=== PATIENT | female | born 1990 | race Caucasian/White ===

== ENCOUNTER 2019-07-04 17:54 | Emergency (ER) | payer SELFPAY ==
[2019-07-04 18:49] LABS: Urine Blood 2+ (NEG); Urine Glucose NEGATIVE (NEG); Urine Protein NEGATIVE (NEG); Urine Specific Gravity 1.015 (1.005-1.030)
[2019-07-04] MEDS ORDERED: NA CHLORIDE 0.9% 1,000 ML ONE (19:20)
[2019-07-04 19:26] LABS: Absolute Lymphocytes (CBC) 2.8 K/uL (0.7-4.9); Basophils % 0.9 % (0-1.3); Hematocrit 36.2 % (36.0-45.0); Lymphocytes % 29.5 % (15.3-44.8); MPV 8.8 fL (7.6-11.3); RBC Red Blood Cell Count 3.94 M/uL (3.86-4.86)
[2019-07-04 19:44] LABS: BUN Blood Urea Nitrogen 10 mg/dL (7-18); Bicarbonate 27 mmol/L (21-32); Glucose Level 103 mg/dL (74-106); Potassium 3.8 mmol/L (3.5-5.1); Sodium Level 140 mmol/L (136-145)
[2019-07-04 19:49] LABS: HCG, Quantitative < 1 mIU/mL (1-3)
--- NOTE | 2019-07-04 20:06 | RAD REPORT ---
EXAM DESCRIPTION: US - Pelvis Complete - 07/04/2019 7:47 pm CLINICAL HISTORY: Pelvic pain, vaginal bleeding COMPARISON: None. TECHNIQUE: Transabdominal pelvic sonography was performed. FINDINGS: IUD is in place in the fundal portion of the endometrial cavity. No focal endometrial or m yometrial finding. No blood or fluid in the cul de sac. Both ovaries are identified and show normal b lood flow. Small follicles or cysts present. No suspicious ovarian or adnexal finding. IMPRESSION: No significant or suspicious uterine, ovarian for adnexal finding. IUD is in place in the fundal portion of the endometrial cavity.
--- NOTE | 2019-07-04 20:50 | ER ---
Nurse's Notes [facility] Name: Mary Beth Sanchez Age: 28 yrs Sex: Female : 1990 Arrival Date: 07/04/2019 Time: 18:03 Bed 26 Private MD: Diagnosis: Other abnormal uterine and vaginal bleeding;Urinary tract infection, site not specified Presentation: 07/04 18:16 Presenting complaint: Patient states: possible miscarriage, took 3 UPT 2.5 week ago, iw thought she was on her cycle 2.5 weeks ago and has been bleeding since then, also has low abd pain, was in recovery and they had to do a UPT so that's how she found out, currently has IUD in place, bleeding has clots. Transition of care: patient was not received from another setting of care. Onset of symptoms was June 20, 2019. Risk Assessment: Do you want to hurt yourself or someone else? Patient reports no desire to harm self or others. Initial Sepsis Screen: Does the patient meet any 2 criteria? No. Patient's initial sepsis screen is negative. Does the patient have a suspected source of infection? No. Patient's initial sepsis screen is negative. Care prior to arrival: None. 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 - Social history:: Smoking status: Patient denies any tobacco usage or history of. - Ebola Screening: : Patient negative for fever greater than or equal to 101.5 degrees Fahrenheit, and additional compatible Ebola Virus Disease symptoms Patient denies exposure to infectious person Patient denies travel to an Ebola-affected area in the 21 days before illness onset No symptoms or risks identified at this time. Screenin:26 Abuse screen: Denies threats or abuse. Denies injuries from another. Nutritional aj1 screening: No deficits noted. Tuberculosis screening: No symptoms or risk factors identified. 21:57 Fall Risk None identified. aj1 Assessment: 19:26 General: Appears in no apparent distress. comfortable, Behavior is calm, cooperative, aj1 appropriate for age. Pain: Pain currently is 6 out of 10 on a pain scale. Neuro: Level of Consciousness is awake, alert, obeys commands, Oriented to person, place, time, situation. Cardiovascular: Patient's skin is warm and dry. Respiratory: Airway is patent Respiratory effort is even, unlabored, Respiratory pattern is regular, symmetrical. GI: No signs and/or symptoms were reported involving the gastrointestinal system. : Reports vaginal bleeding that is bright red. EENT: No signs and/or symptoms were reported regarding the EENT system. Derm: No signs and/or symptoms reported regarding the dermatologic system. Skin is pink, warm \T\ dry. normal. Musculoskeletal: No signs and/or symptoms reported regarding the musculoskeletal system. Circulation, motion, and sensation intact. 20:30 Reassessment: Patient appears in no apparent distress at this time. No changes from aj1 previously documented assessment. Patient and/or family updated on plan of care and expected duration. Pain level reassessed. Patient is alert, oriented x 3, equal unlabored respirations, skin warm/dry/pink. 21:44 Reassessment: Patient appears in no apparent distress at this time. No changes from aj1 previously documented assessment. Patient and/or family updated on plan of care and expected duration. Pain level reassessed. Patient is alert, oriented x 3, equal unlabored respirations, skin warm/dry/pink. Vital Signs: 18:19 BP 140 / 102; Pulse 74; Resp 16; Temp 99.3; Pulse Ox 97% on R/A; Weight 70.31 kg; iw Height 5 ft. 9 in. (175.26 cm); Pain 8/10; 20:52 BP 125 / 90; Pulse 87; Resp 16; Temp 98.1(O); Pulse Ox 100% ; lt1 18:19 Body Mass Index 22.89 (70.31 kg, 175.26 cm) ED Course: 18:03 Patient arrived in ED. mr 18:18 Triage completed. iw 18:20 Arm band placed on. iw 18:24 Patel Martins PA is PHCP. [facility] 18:24 Symone Ng MD is Attending Physician. [facility] 18:28 María Carvalho, RN is Primary Nurse. aj1 19:26 Patient has correct armband on for positive identification. aj1 19:26 No provider procedures requiring assistance completed. aj1 19:26 Inserted saline lock: 20 gauge in right antecubital area, using aseptic technique. aj1 Blood collected. 19:48 US Pelvis Complete In Process Unspecified. EDMS 19:49 Ultrasound completed. Patient tolerated well. sg3 20:40 EKG done, by ED staff, reviewed by Patel PANCHAL. lt1 21:57 IV discontinued, intact, bleeding controlled, No redness/swelling at site. Pressure aj1 dressing applied. Administered Medications: 19:25 Drug: NS 0.9% (20 ml/kg) 20 ml/kg Route: IV; Rate: 1 bolus; Site: right antecubital; aj1 21:45 Follow up: IV Status: Completed infusion; IV Intake: 1400ml aj1 Intake: 21:45 IV: 1400ml; Total: 1400ml. aj1 Outcome: 20:49 Discharge ordered by . [facility] 21:58 Discharged to Rehab Facility aj1 21:58 Condition: good 21:58 Discharge instructions given to patient, Instructed on discharge instructions, follow up and referral plans. medication usage, Demonstrated understanding of instructions, follow-up care, medications, Prescriptions given X 1. 21:58 Patient left the ED. aj1 Signatures: Dispatcher [employer] EDMS María Carvalho, Patel Kraft RN, PA PA Radha Lamas Irene, RN RN iw Godinez, Sarah sg3 Savannah Ibarra lt1
--- NOTE | 2019-07-04 20:51 | EDPHYS ---
Physician Documentation [facility] Name: Mary Beth Sanchez Age: 28 yrs Sex: Female : 1990 Arrival Date: 07/04/2019 Time: 18:03 Bed 26 Private MD: ED Physician Symone Ng HPI: 07/04 18:51 This 28 yrs old Female presents to ER via Ambulatory with complaints of jmm Vaginal Bleeding. 18:51 The patient presents with vaginal bleeding that is. Onset: The symptoms/episode jmm began/occurred gradually. Modifying factors: The symptoms are alleviated by nothing, the symptoms are aggravated by nothing. Associated signs and symptoms: Pertinent negatives: fever. This is a 28 year old female with no chronic medical conditions that presents to the ED with complaints of vaginal bleeding, weakness. Bleeding began approx 2.5 weeks ago. Patient has had positive UPT at home. States having a syncopal episode 2 days ago. . 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 - Social history:: Smoking status: Patient denies any tobacco usage or history of. - Ebola Screening: : Patient negative for fever greater than or equal to 101.5 degrees Fahrenheit, and additional compatible Ebola Virus Disease symptoms Patient denies exposure to infectious person Patient denies travel to an Ebola-affected area in the 21 days before illness onset No symptoms or risks identified at this time. ROS: 18:51 Constitutional: Negative for fever, chills, and weight loss, Cardiovascular: Negative jmm for chest pain, palpitations, and edema, Respiratory: Negative for shortness of breath, cough, wheezing, and pleuritic chest pain. 18:51 : Positive for vaginal bleeding. 18:51 Neuro: Positive for syncope. 18:51 All other systems are negative. Exam: 18:51 Constitutional: This is a well developed, well nourished patient who is awake, alert, jmm and in no acute distress. Head/Face: atraumatic. Eyes: EOMI, no conjunctival erythema appreciated ENT: Moist Mucus Membranes Neck: Trachea midline, Supple Chest/axilla: Normal chest wall appearance and motion. Cardiovascular: Regular rate and rhythm. No edema appreciated Respiratory: Normal respirations, no respiratory distress appreciated 18:51 Skin: General appearance color normal MS/ Extremity: Moves all extremities, no obvious deformities appreciated, no edema noted to the lower extremities Neuro: Awake and alert, normal gait Psych: Behavior is normal, Mood is normal, Patient is cooperative and pleasant 18:51 Abdomen/GI: Inspection: abdomen appears normal, Bowel sounds: normal, Palpation: abdomen is soft and non-tender, in all quadrants. 18:51 Back: CVA tenderness, is absent. Vital Signs: 18:19 BP 140 / 102; Pulse 74; Resp 16; Temp 99.3; Pulse Ox 97% on R/A; Weight 70.31 kg; iw Height 5 ft. 9 in. (175.26 cm); Pain 8/10; 20:52 BP 125 / 90; Pulse 87; Resp 16; Temp 98.1(O); Pulse Ox 100% ; lt1 18:19 Body Mass Index 22.89 (70.31 kg, 175.26 cm) iw MDM: 18:50 Patient medically screened. jmm 20:48 Data reviewed: vital signs, nurses notes. Counseling: I had a detailed discussion with hanna the patient and/or guardian regarding: the historical points, exam findings, and any diagnostic results supporting the discharge/admit diagnosis, lab results, radiology results, the need for outpatient follow up, to return to the emergency department if symptoms worsen or persist or if there are any questions or concerns that arise at home. ED course: Patient is alert and non toxic in appearance in the ED. Advised to follow up with obgyn for reevaluation. Patient otherwise given strict return precautions. Patient understood and agrees with the plan of care. . 07/04 18:40 Order name: Urine Dipstick--Ancillary (enter results); Complete Time: 18:50 eb 07/04 18:40 Order name: Urine --Ancillary (enter results); Complete Time: 18:50 eb 07/04 18:51 Order name: Quantitative Hcg; Complete Time: 19:53 [facility] 07/04 18:51 Order name: Abo/rh Typing; Complete Time: 19:53 [facility] 07/04 18:51 Order name: Basic Metabolic Panel; Complete Time: 19:53 [facility] 07/04 18:51 Order name: CBC with Diff; Complete Time: 19:37 [facility] 07/04 18:25 Order name: Urine Dipstick-Ancillary (obtain specimen); Complete Time: 19:13 [facility] 07/04 18:25 Order name: Urine Test (obtain specimen); Complete Time: 19:13 [facility] 07/04 18:51 Order name: IV Saline Lock; Complete Time: 19:14 [facility] 07/04 18:51 Order name: Labs collected and sent; Complete Time: 19:14 [facility] 07/04 18:51 Order name: NPO; Complete Time: 19:14 [facility] 07/04 18:51 Order name: US Pelvis Complete; Complete Time: 20:13 [facility] 07/04 20:23 Order name: EKG - Nurse/Tech; Complete Time: 20:40 [facility] Administered Medications: 19:25 Drug: NS 0.9% (20 ml/kg) 20 ml/kg Route: IV; Rate: 1 bolus; Site: right antecubital; aj1 21:45 Follow up: IV Status: Completed infusion; IV Intake: 1400ml aj1 Disposition: 07/05 15:53 Co-signature as Attending Physician, Symone Ng MD. ma2 Disposition: 07/04/19 20:49 Discharged to Home. Impression: Other abnormal uterine and vaginal bleeding, Urinary tract infection, site not specified. - Condition is Stable. - Discharge Instructions: Urinary Tract Infection, Adult, Dysfunctional Uterine Bleeding. - Prescriptions for Cephalexin 500 mg Oral Capsule - take 1 capsule by ORAL route every 12 hours for 10 days; 20 capsule. - Medication Reconciliation Form, Thank You Letter, Antibiotic Education, Prescription Opioid Use form. - Follow up: Private Physician; When: 2 - 3 days; Reason: Recheck today's complaints, Continuance of care, Re-evaluation by your physician. Signatures: Dispatcher [employer] María Leon RN RN aj1 Patel Martins PA PA jmm Williams, Irene, RN RN iw Alzahri, Mohammad, MD MD ma2 Corrections: (The following items were deleted from the chart) 07/04 21:58 20:49 07/04/2019 20:49 Discharged to Home. Impression: Other abnormal uterine and aj1 vaginal bleeding; Urinary tract infection, site not specified. Condition is Stable. Forms are Medication Reconciliation Form, Thank You Letter, Antibiotic Education, Prescription Opioid Use. Follow up: Private Physician; When: 2 - 3 days; Reason: Recheck today's complaints, Continuance of care, Re-evaluation by your physician. hanna
[2019-07-04 23:18] VITALS: BP 125/90; TEMP 98.1; O2SAT 100
== END 2019-07-04 21:58 | disposition home or self-care (01) ==
LOC: ER 17:54
DX: N93.9 Abnormal uterine and vaginal bleeding, unspecified (principal); N39.0 Urinary tract infection, site not specified; Z91.040 Latex allergy status
CPT/HCPCS: 36415; 76856; 80048; 81003; 81025; 84702; 85025; 86900; 86901; 96360; 96361; 99284; J7030

== ENCOUNTER 2019-10-25 18:35 | Emergency (ER) | payer SELFPAY ==
[2019-10-25] MEDS ORDERED: NA CHLORIDE 0.9% 1,000 ML ONE (20:54)
[2019-10-25 20:59] LABS: Absolute Lymphocytes (CBC) 2.7 K/uL (0.7-4.9); Basophils % 1.1 % (0-1.3); Hematocrit 44.1 % (36.0-45.0); Lymphocytes % 27.1 % (15.3-44.8); MPV 8.7 fL (7.6-11.3); RBC Red Blood Cell Count 4.83 M/uL (3.86-4.86)
--- NOTE | 2019-10-25 20:59 | RAD REPORT ---
EXAM DESCRIPTION: Javi Single View10/25/2019 8:52 pm CLINICAL HISTORY: Shortness of breath COMPARISON: 2018 FINDINGS: The mid and lower lungs are mildly hazy. The heart is normal size IMPRESSION: The mid and lower lungs are mildly hazy probably secondary to overlying soft tissue. As infiltrates can have this appearance it is recommended that the patient have PA and lateral chest ser ies for further evaluation
[2019-10-25 21:11] LABS: Urine Blood 1+ (NEG); Urine Glucose NEGATIVE (NEG); Urine Protein NEGATIVE (NEG); Urine Specific Gravity >1.030 (1.005-1.030)
[2019-10-25 21:13] LABS: Urine Bacteria 20-50 /HPF (<20); Urine Culture Reflex Order REFLEXED; Urine RBC NONE SEEN /HPF (NONE SEEN)
[2019-10-25 21:15] LABS: ALT/SGPT 20 U/L (12-78); AST/SGOT 9 U/L (15-37); Albumin 3.8 g/dL (3.4-5.0); Alkaline Phosphatase 41 U/L (45-117); BUN Blood Urea Nitrogen 12 mg/dL (7-18); Bicarbonate 27 mmol/L (21-32); Bilirubin Direct < 0.1 mg/dL (0-0.2); Bilirubin Total 0.2 mg/dL (0.2-1.0); Glucose Level 93 mg/dL (74-106); Potassium 3.7 mmol/L (3.5-5.1); Protein, Total 8.4 g/dL (6.4-8.2); Sodium Level 139 mmol/L (136-145)
[2019-10-25 21:19] LABS: Protime INR 0.96
--- NOTE | 2019-10-25 21:35 | RAD REPORT ---
EXAM DESCRIPTION: CT - Head Brain Wo Cont - 10/25/2019 9:09 pm CLINICAL HISTORY: Numbness e COMPARISON: 2007 TECHNIQUE: Computed axial tomography of the head was obtained. IV contrast was not requested. All CT scans are performed using dose optimization technique as appropriate and may include automated exposure control or mA/KV adjustment according to patient size. FINDINGS: An intracranial bleed is not seen . The ventricles are normal in caliber. No extra-axial fluid collection is noted. Fluid within the sinuses/ mastoids is not seen. IMPRESSION: No acute intracranial abnormality is seen. If patient's symptoms persist MRI of the bra in would be recommended.
--- NOTE | 2019-10-25 23:04 | EDPHYS ---
Physician Documentation [facility] Name: Mary Beth Sanchez Age: 29 yrs Sex: Female : 1990 Arrival Date: 10/25/2019 Time: 18:37 Bed 20 Private MD: ED Physician Robin Nguyen HPI: 10/24 20:28 This 29 yrs old Female presents to ER via Ambulatory with complaints of rn Dizziness, Numbness, Shortness Of Breath, Confused. 20:28 The patient presents with generalized weakness. Onset: The symptoms/episode rn began/occurred 4 day(s) ago. Modifying factors: The symptoms are alleviated by nothing, the symptoms are aggravated by nothing. Severity of symptoms: At their worst the symptoms were moderate in the emergency department the symptoms are unchanged. The patient has not experienced similar symptoms in the past. Reports "not feeling right" for 4 days, no head injury. Feels mild headache that has now resolved, assoc with fatigue, malaise, rash on bilateral lower ext that does not itch or hurt. NO known autoimmune problems or blood problems in her or family. No new meds. Went fishing recently. NO neck pain or stiffness. No fever. NO sick contacts. . 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 - Social history:: Smoking status: Patient reports the use of cigarette tobacco products, smokes one-half pack cigarettes per day. - Family history:: not pertinent. - Hospitalizations: : No recent hospitalization is reported. ROS: 20:30 Constitutional: Negative for fever, chills, and weight loss, Eyes: Negative for injury, rn pain, redness, and discharge, Neck: Negative for injury, pain, and swelling, Cardiovascular: Negative for chest pain, palpitations, and edema, Respiratory: Negative for cough, wheezing, and pleuritic chest pain, Abdomen/GI: Negative for abdominal pain, nausea, vomiting, diarrhea, and constipation, Back: Negative for injury and pain, : Negative for injury, bleeding, discharge, and swelling, MS/Extremity: Negative for injury and deformity, Skin: + rash to legs Neuro: Negative for headache, and seizure. Exam: 20:30 Constitutional: This is a well developed, well nourished patient who is awake, alert, rn and in no acute distress. Ambulatory to room without assistance or distress Head/Face: Normocephalic, atraumatic. Eyes: Pupils equal round and reactive to light, extra-ocular motions intact. Lids and lashes normal. Conjunctiva and sclera are non-icteric and not injected. Cornea within normal limits. Periorbital areas with no swelling, redness, or edema. Neck: Trachea midline, no thyromegaly or masses palpated, and no cervical lymphadenopathy. Supple, full range of motion without nuchal rigidity, or vertebral point tenderness. No Meningismus. Cardiovascular: Regular rate and rhythm. No pulse deficits. Respiratory: Lungs have equal breath sounds bilaterally, clear to auscultation. No increased work of breathing, no retractions or nasal flaring. Skin: Warm, dry, + blanching non-palpable erythematous lesions scattered bilateral lower ext, below knees. No fluctuance or warmth. Non-tender. No streaking. MS/ Extremity: Pulses equal, no cyanosis. Neuro: Awake and alert, GCS 15, oriented to person, place, time, and situation. Cranial nerves II-XII grossly intact. Motor strength 5/5 in all extremities. Sensory grossly intact. Cerebellar exam normal. Normal gait. 22:25 ECG was reviewed by the Attending Physician. rn Vital Signs: 19:00 BP 116 / 83; Pulse 98; Resp 16 S; Temp 98.4(O); Pulse Ox 99% on R/A; Weight 72.57 kg ca1 (R); Height 5 ft. 9 in. (175.26 cm) (R); 20:55 BP 109 / 79; Pulse 80; Resp 17; Pulse Ox 100% on R/A; rv 22:00 BP 109 / 78; Pulse 68; Resp 17; Pulse Ox 100% on R/A; rv 23:00 BP 108 / 72; Pulse 79; Resp 17; Pulse Ox 100% on R/A; rv 19:00 Body Mass Index 23.63 (72.57 kg, 175.26 cm) ca1 MDM: 19:53 Patient medically screened. rn 23:01 Differential diagnosis: generalized weakness, hypovolemia, idiopathic dizziness, viral rn syndrome, pneumonia, COVID-19, dehydration, vasculitis, auto-immune disorder. . Data reviewed: vital signs, nurses notes, lab test result(s), radiologic studies, CT scan, plain films, and as a result, I will discharge patient. Counseling: I had a detailed discussion with the patient and/or guardian regarding: the historical points, exam findings, and any diagnostic results supporting the discharge/admit diagnosis, lab results, radiology results, the need for outpatient follow up, to return to the emergency department if symptoms worsen or persist or if there are any questions or concerns that arise at home. Response to treatment: the patient's symptoms have mildly improved after treatment, and as a result, I will discharge patient. Special discussion: I discussed with the patient/guardian in detail that at this point there is no indication for admission to the hospital. It is understood, however, that if the symptoms persist or worsen the patient needs to return immediately for re-evaluation. Based on the history and exam findings, there is no indication for further emergent testing or inpatient evaluation. I discussed with the patient/guardian the need to see the primary care provider for further evaluation of the symptoms. ED course: NO acute findings in w/u, neg 2 view chest, swabbed for COVID-19, will dc home with quarantine and return precautions. . 10/24 20:26 Order name: CBC with Diff; Complete Time: 21:00 rn 10/24 20:26 Order name: Basic Metabolic Panel; Complete Time: : rn 10/24 20:26 Order name: Protime (+inr); Complete Time: : rn 10/24 20:26 Order name: Ptt, Activated; Complete Time: : rn 10/24 20:26 Order name: [place]atte Screen Profile; Complete Time: : rn 10/24 20:26 Order name: Strep; Complete Time: : rn 10/24 20:26 Order name: Flu; Complete Time: : rn 10/24 20:26 Order name: Urine Microscopic Only; Complete Time: :38 rn 10/24 20:26 Order name: LFT's; Complete Time: : rn 10/24 21:05 Order name: Urine Dipstick--Ancillary (enter results); Complete Time: :38 ar5 10/24 21:05 Order name: Urine --Ancillary (enter results); Complete Time: 21:38 [facility] 10/24 21:17 Order name: Urine Culture [facility] 10/24 21:52 Order name: Throat Culture [facility] 10/24 22:50 Order name: COVID-19 10/24 20:26 Order name: IV Start; Complete Time: 20:45 10/24 20:26 Order name: XRAY Chest (1 view); Complete Time: 21:38 10/24 20:26 Order name: CT Head Brain wo Cont; Complete Time: 21:38 10/24 20:26 Order name: Urine Test (obtain specimen); Complete Time: 20:45 10/24 20:26 Order name: Urine Dipstick-Ancillary (obtain specimen); Complete Time: 20:45 10/24 21:39 Order name: XRAY Chest Pa And Lat (2 Views) 10/24 22:50 Order name: Document PUI#; Complete Time: 23:30 10/24 22:50 Order name: Droplet/Contact Precautions; Complete Time: 23:31 10/24 22:50 Order name: Labs collected and sent; Complete Time: 23:31 10/24 22:50 Order name: Notify Health Dept [phone]/ ; Complete Time: 23:31 10/24 22:50 Order name: O2 Per Protocol; Complete Time: 23:31 rn EC:25 Rate is 74 beats/min. Rhythm is regular. QRS [place] is Normal. TN interval is normal. QRS rn interval is normal. QT interval is normal. No Q waves. T waves are Normal. No ST changes noted. Clinical impression: Normal ECG. Interpreted by me. Reviewed by me. Administered Medications: 20:55 Drug: NS 0.9% 1000 ml Route: IV; Rate: 1000 ml; Site: right antecubital; rv 23:31 Follow up: IV Status: Completed infusion; IV Intake: 1000ml rv Disposition: 10/25/19 23:03 Discharged to Home. Impression: Weakness, Dyspnea, unspecified, Rash and other nonspecific skin eruption. - Condition is Stable. - Discharge Instructions: Rash, Shortness of Breath, Weakness. - Work release form, Medication Reconciliation Form, Thank You Letter, Antibiotic Education, Prescription Opioid Use form. - Follow up: Private Physician; When: As needed; Reason: Recheck today's complaints, Re-evaluation by your physician. - Problem is new. - Symptoms have improved. Signatures: Dispatcher [employer] EDMS Robin Nguyen MD MD rn Vicente, Ronaldo, RN RN rv Acob, ACE Lemos RN ca1 Corrections: (The following items were deleted from the chart) 23:30 23:03 10/25/2019 23:03 Discharged to Home. Impression: Weakness; Dyspnea, unspecified; rv Rash and other nonspecific skin eruption. Condition is Stable. Forms are Medication Reconciliation Form, Thank You Letter, Antibiotic Education, Prescription Opioid Use. Follow up: Private Physician; When: As needed; Reason: Recheck today's complaints, Re-evaluation by your physician. Problem is new. Symptoms have improved. rn
--- NOTE | 2019-10-25 23:04 | ER ---
Nurse's Notes [facility] Name: Mary Beth Sanchez Age: 29 yrs Sex: Female : 1990 Arrival Date: 10/25/2019 Time: 18:37 Bed 20 Private MD: Diagnosis: Weakness;Dyspnea, unspecified;Rash and other nonspecific skin eruption Presentation: 10/24 19:00 Chief complaint: Patient states: Rash on both legs started last , had steroid ca1 shot at the ER. Then 4 days ago, numbness on R side of the face. States, "I feel confused like something is not right. Also have SOB since 4 days ago". Denies cough and fever. Coronavirus screen: Proceed with normal triage. Patient denies a cough. Patient reports shortness of breath or difficulty breathing. Patient denies measured and/or subjective temperature greater than 100.4F prior to today's visit. Patient denies travel on a cruise ship or to a country the [facility] currently lists as an affected area. Patient denies contact with known and/or suspected case of COVID-19. Ebola Screen: Patient negative for fever greater than or equal to 101.5 degrees Fahrenheit, and additional compatible Ebola Virus Disease symptoms Patient denies exposure to infectious person. Patient denies travel to an Ebola-affected area in the 21 days before illness onset. No symptoms or risks identified at this time. Initial Sepsis Screen: Does the patient meet any 2 criteria? No. Patient's initial sepsis screen is negative. Does the patient have a suspected source of infection? No. Patient's initial sepsis screen is negative. Risk Assessment: Do you want to hurt yourself or someone else? Patient reports no desire to harm self or others. Onset of symptoms was October 25, 2019. 19:00 Method Of Arrival: Ambulatory ca1 19:00 Acuity: AMOS 3 ca1 Triage Assessment: 20:26 Respiratory: Onset: The symptoms/episode began/occurred at an unknown time. rv RN REVIEW: 19:00 LMP 10/20/2019 ca1 Historical: - Allergies: 19:05 Latex, Natural Rubber; ca1 - Home Meds: 19:05 None [Active]; ca1 - PMHx: 19:05 back problems; Seizures; ca1 - PSHx: 19:05 Appendectomy; Tonsillectomy; Hernia repair; ca1 - Immunization history:: Adult Immunizations up to date. - Social history:: Smoking status: Patient reports the use of cigarette tobacco products, smokes one-half pack cigarettes per day. - Family history:: not pertinent. - Hospitalizations: : No recent hospitalization is reported. Screenin:25 Abuse screen: Denies threats or abuse. Denies injuries from another. Nutritional rv screening: No deficits noted. Tuberculosis screening: No symptoms or risk factors identified. Fall Risk None identified. Assessment: 20:23 General: Appears comfortable, Behavior is calm, cooperative. Pain: Denies pain. Neuro: rv Level of Consciousness is awake, alert, obeys commands, Oriented to person, place, time, situation, Credit Verifier are equal bilaterally Moves all extremities. Full function Gait is steady, Speech is normal, Facial symmetry appears normal, Pupils are PERRLA, Intact Reports numbness in face, right side. Cardiovascular: Patient's skin is warm and dry. Rhythm is sinus rhythm. Respiratory: Airway is patent Respiratory effort is even, unlabored, Breath sounds are clear bilaterally. Derm: Rash noted that is red, on right arrieta, anterior aspect of right ankle, dorsum of right foot, left arrieta, anterior aspect of left ankle and dorsum of left foot. Vital Signs: 19:00 BP 116 / 83; Pulse 98; Resp 16 S; Temp 98.4(O); Pulse Ox 99% on R/A; Weight 72.57 kg ca1 (R); Height 5 ft. 9 in. (175.26 cm) (R); 20:55 BP 109 / 79; Pulse 80; Resp 17; Pulse Ox 100% on R/A; rv 22:00 BP 109 / 78; Pulse 68; Resp 17; Pulse Ox 100% on R/A; rv 23:00 BP 108 / 72; Pulse 79; Resp 17; Pulse Ox 100% on R/A; rv 19:00 Body Mass Index 23.63 (72.57 kg, 175.26 cm) ca1 ED Course: 18:37 Patient arrived in ED. ag5 19:04 Triage completed. ca1 19:48 David Cifuentes, ACE is Primary Nurse. rv 19:53 Robin Nguyen MD is Attending Physician. rn 20:25 Patient has correct armband on for positive identification. Bed in low position. Call rv light in reach. Side rails up X 1. Pulse ox on. NIBP on. 20:26 Arm band placed on Patient placed in the treatment room, on a stretcher, Patient rv notified of wait time. EKG completed in triage. Results shown to MD. 20:53 XRAY Chest (1 view) In Process Unspecified. EDMS 21:10 CT Head Brain wo Cont In Process Unspecified. EDMS 21:35 Inserted saline lock: 18 gauge in right antecubital area, using aseptic technique. rv Blood collected. 21:50 XRAY Chest Pa And Lat (2 Views) In Process Unspecified. EDMS 23:24 No provider procedures requiring assistance completed. IV discontinued, intact, rv bleeding controlled, No redness/swelling at site. Pressure dressing applied. Administered Medications: 20:55 Drug: NS 0.9% 1000 ml Route: IV; Rate: 1000 ml; Site: right antecubital; rv 23:31 Follow up: IV Status: Completed infusion; IV Intake: 1000ml rv Intake: 23:31 IV: 1000ml; Total: 1000ml. rv Outcome: 23:03 Discharge ordered by MD. rn 23:28 Discharged to home ambulatory. rv 23:28 Condition: good 23:28 Discharge instructions given to patient, Instructed on discharge instructions, follow up and referral plans. Demonstrated understanding of instructions, follow-up care. 23:30 Patient left the ED. rv Addendum: 10/28/2019 11:50 Addendum: Other pt notified of negative COVID-19 swab results. Pt advised to remain in d m5 isolation until fever free for 72 hours without medication, to continue to monitor symptoms and to return to the ED if symptoms worsen. Signatures: Dispatcher [employer] EDOH Marleni Leung, ACE RN [email or web address] Robin Nguyen MD MD rn Vicente, Ronaldo, RN RN rv Acob, Cheryl, RN RN ca1 Rebeca Barahona 5
[2019-10-25 23:44] VITALS: TEMP 98.4
[2019-10-25 23:45] VITALS: O2SAT 100
[2019-10-25 23:48] VITALS: BP 108/72
--- NOTE | 2019-10-26 11:32 | RAD REPORT ---
EXAM DESCRIPTION: Chest Pa And Lat x-ray (2 Views) CLINICAL HISTORY: DYSPNEA COMPARISON: None FINDINGS: Cardiac silhouette is within normal limits. EKG leads project over the chest. There is no focal parenchymal or pleural disease. There is no acute osseous process visualized. Costophrenic angl es were not included in the frontal view. IMPRESSION: No evidence of acute cardiopulmonary disease. Electronically signed by: Tai Peters MD 10/25/2019 10:48 PM CDT Due to temporary technical issues with the PACS/Fluency reporting system, reports are being signed by the in house radiologist as a courtesy to ensure prompt reporting. The interpreting radiologist is f ully responsible for the content of the report.
--- NOTE | 2019-10-27 07:24 | EKG ---
Test Date: 2019-10-25 Test Time: 20:04:31 Stoker Installation Mechanic: ADRIANNA MEASUREMENT RESULTS: Intervals: Rate: 74 WV: 130 QRSD: 94 QT: 386 QTc: 428 [place]: P: 41 WV: 130 QRS: 71 T: 39 INTERPRETIVE STATEMENTS: Normal sinus rhythm with sinus arrhythmia Normal ECG No previous ECG available for comparison Electronically Signed On 10-27-19 07:23:06 CDT by Agapito Ferguson
== END 2019-10-25 23:30 | disposition home or self-care (01) ==
LOC: ER 18:35
DX: R53.1 Weakness (principal); Z20.828 Contact with and (suspected) exposure to other viral communicable diseases; R21 Rash and other nonspecific skin eruption; F17.210 Nicotine dependence, cigarettes, uncomplicated; Z91.040 Latex allergy status; Z91.048 Other nonmedicinal substance allergy status
CPT/HCPCS: 36415; 70450; 71045; 71046; 80048; 80076; 81003; 81015; 81025; 85025; 85610; 85730; 86308; 87070; 87081; 87086; 87088; 87804; 93005; 96360; 96361; 99284; J7030; U0001

== ENCOUNTER 2022-02-28 11:44 | Emergency (ER) | payer OTHER ==
--- OUTSIDE RECORDS SUMMARY | 2022-02-28 11:49 | XMS REPORT | Continuity of Care Document ---
:[address] [facility] t Address [address] [place] [address] Care Team Providers Name Role Phone RUTHANN OWEN Primary Care Physician Unavailable Pepe Liu Attending Clinician Unavailable Marques Hughes Attending Clinician Unavailable SITA CHU Attending Clinician Unavailable Sita Mccurdy Attending Clinician Doctor Unassigned, Rodriguez Hevia Attending Clinician Unavailable CHASIDY_Saul_Mickie Attending Clinician Unavailable Marques Hughes Attending Clinician [phone] RUTHANN OWEN Attending Clinician Unavailable Ruthann Griggs Attending Clinician Ultrasound, Ang-Mfm Attending Clinician Unavailable Erendira Sue MD, Delaney Attending Clinician [phone] AkinsiChristina Raman Attending Clinician [phone] Marques Hughes Admitting Clinician Unavailable KNOW, DOES_NOT Admitting Clinician Unavailable MICHAEL_RON_Saul_Mickie Admitting Clinician Unavailable Payers Payer Name Policy Type Policy Number Effective Date Expiration Date Tae floyd [facility] [id number] 2020 [employer] [place] 00:00:00 (MEDICAID HMO) Problems Condition Condition Condition Status Onset Resolution Last Treating Co mments Source Name Details Category Date Date Treatment Clinician Date Subchorion Subchorion Disease Active Overview : Univers ic ic 1-21 Formattin ity of hemorrhage hemorrhage 00:00: g of this [place] of note Medical placenta placenta might be Bran ch in first in first different trimester trimester from the original. See Medical records report. Supervisio Supervisio Disease Active U nivers n of high n of high 1-19 ity of risk risk 00:00: [place] , , 00 Me dical antepartum antepartum Br anch Multiparit Multiparit Disease Active U nivers y y 1-19 ity of 00:00: Medical Branch Obstetrica Obstetrica Disease Active U nivers l pelvic l pelvic 1-19 ity of hematoma hematoma 00:00: Medical Branch BMI BMI Disease Active Univers 27.0-27.9, 27.0-27.9, 1-19 it y of adult adult 00:00: Medical Branch History of History of Disease Active U nivers asthma asthma 1-19 ity of 00:00: Medical Branch Allergies, Adverse Reactions, Alerts Allergy Allergy Status Severity Reaction(s) Onset Inactive Treating Comm ents Source Name Type Date Date Clinician No Known DA Active U [facility] [place] latex DA Active MO 2020-0 [facility] 8[facility] [place] No Known DA Active U [facility] Allergie 8-11 [facility] 00:[facility] [place] latex DA Active MO rash 2020- [facility] 8-11 [facility] 00:[facility]: [facility] [place] latex DA Active U 2020-0 [facility] 8-06 [facility] 00:[facility]: [facility] [place] latex DA Active U RASH-HIVES 2020-0 [facility] 8-06 [facility] 00:00: [facility] [place] latex DA Active U 2020-0 [facility] 7-15 Clear 00:00: Roy 00 [facility] latex DA Active U RASH-HIVES 2020-0 [facility] 7-15 Clear 00:00: Roy 00 [facility] No Known DA Active U 2020-0 [facility] Allergie 7-13 [facility] 00:[facility]: [facility] [place] No Known DA Active U 2020-0 [facility] Allergie 7-13 [facility] s 00:00: Hospita 00 [facility] No Known DA Active U 2019- [facility] Allergie 2-19 Woman's s 00:00: Hospita 00 [facility] No Known DA Active U 2019- [facility] Allergie 2-19 [facility] s 00:00: [facility] 00 [facility] [place] NO KNOWN Drug Active Univers ALLERGIE Class ity of [facility] Social History Social Habit Start Date Stop Date Quantity Comments Source ASSERTION 2020-04-27 [facility] 00:00:00 [facility] Exposure to 2022-02-17 2022-02-27 Not sure [facility]-CoV-2 00:00:00 18:47:00 [facility] (event) [facility] Alcohol intake 2022-02-27 2022-02-27 Ex-drinker [facility] 00:00:00 00:00:00 (finding) [facility] Tobacco use and 2020-07-04 2020-07-04 Smokeless tobacco Un iversity of exposure 00:00:00 00:00:00 non-user [facility] Sex Assigned At [birth year] Universit y of 00:00:00 00:00:00 [facility] Smoking Status Start Date Stop Date Source Unknown if ever smoked [facility] y [facility] Never smoked tobacco [facility] Medications Ordered Filled Start Stop Current Ordering Indication Dosage Frequency Signature Comments Components Source Medication Medication Date Date Medication? Clinician (SIG) Name Name Yes [id number] 1{packe Take 1 Univers vit 1-19 t} Packet by ity of 33-iron-fol 00:00: mouth [place] ic-dha 00 daily. Medical (SELECT-OB Branch + DHA) 29 mg iron-1 mg -250 mg combo pack levalbutero Yes [id number] 2{puff} Inhale 2 Univers l 45 1-19 Puffs ity of mcg/actuati 00:00: every 4 Abner as on inhaler 00 (four) Medical hours as Branch needed for Wheezing. Yes [id number] 1{packe Take 1 Univers vit 1-19 t} Packet by ity of 33-iron-fol 00:00: mouth [place] ic-dha 00 daily. Medical (SELECT-OB Branch + DHA) 29 mg iron-1 mg -250 mg combo pack levalbutero Yes [id number] 2{puff} Inhale 2 Univers l 45 1-19 Puffs ity of mcg/actuati 00:00: every 4 Abner as on inhaler 00 (four) Medical hours as Branch needed for Wheezing. Yes [id number] 1{packe Take 1 Univers vit 1-19 t} Packet by ity of 33-iron-fol 00:00: mouth [place] ic-dha 00 daily. Medical (SELECT-OB Branch + DHA) 29 mg iron-1 mg -250 mg combo pack levalbutero Yes [id number] 2{puff} Inhale 2 Univers l 45 1-19 Puffs ity of mcg/actuati 00:00: every 4 Abner as on inhaler 00 (four) Medical hours as Branch needed for Wheezing. Yes [id number] 1{packe Take 1 Univers vit 1-19 t} Packet by ity of 33-iron-fol 00:00: mouth [place] ic-dha 00 daily. Medical (SELECT-OB Branch + DHA) 29 mg iron-1 mg -250 mg combo pack levalbutero Yes [id number] 2{puff} Inhale 2 Univers l 45 1-19 Puffs ity of mcg/actuati 00:00: every 4 Abner as on inhaler 00 (four) Medical hours as Branch needed for Wheezing. Yes [id number] 1{packe Take 1 Univers vit 1-19 t} Packet by ity of 33-iron-fol 00:00: mouth [place] ic-dha 00 daily. Medical (SELECT-OB Branch + DHA) 29 mg iron-1 mg -250 mg combo pack levalbutero Yes [id number] 2{puff} Inhale 2 Univers l 45 1-19 Puffs ity of mcg/actuati 00:00: every 4 Abner as on inhaler 00 (four) Medical hours as Branch needed for Wheezing. Yes [id number] 1{packe Take 1 Univers vit 1-19 t} Packet by ity of 33-iron-fol 00:00: mouth [place] ic-dha 00 daily. Medical (SELECT-OB Branch + DHA) 29 mg iron-1 mg -250 mg combo pack levalbutero Yes [id number] 2{puff} Inhale 2 Univers l 45 1-19 Puffs ity of mcg/actuati 00:00: every 4 Abner as on inhaler 00 (four) Medical hours as Branch needed for Wheezing. Yes [id number] 1{packe Take 1 Univers vit 1-19 t} Packet by ity of 33-iron-fol 00:00: mouth [place] ic-dha 00 daily. Medical (SELECT-OB Branch + DHA) 29 mg iron-1 mg -250 mg combo pack levalbutero Yes [id number] 2{puff} Inhale 2 Univers l 45 1-19 Puffs ity of mcg/actuati 00:00: every 4 Abner as on inhaler 00 (four) Medical hours as Branch needed for Wheezing. Yes [id number] 1{packe Take 1 Univers vit 1-19 t} Packet by ity of 33-iron-fol 00:00: mouth [place] ic-dha 00 daily. Medical (SELECT-OB Branch + DHA) 29 mg iron-1 mg -250 mg combo pack levalbutero Yes [id number] 2{puff} Inhale 2 Univers l 45 1-19 Puffs ity of mcg/actuati 00:00: every 4 Abner as on inhaler 00 (four) Medical hours as Branch needed for Wheezing. Yes [id number] 1{packe Take 1 Univers vit 1-19 t} Packet by ity of 33-iron-fol 00:00: mouth [place] ic-dha 00 daily. Medical (SELECT-OB Branch + DHA) 29 mg iron-1 mg -250 mg combo pack levalbutero Yes [id number] 2{puff} Inhale 2 Univers l 45 1-19 Puffs ity of mcg/actuati 00:00: every 4 Abner as on inhaler 00 (four) Medical hours as Branch needed for Wheezing. Yes [id number] 1{packe Take 1 Univers vit 1-19 t} Packet by ity of 33-iron-fol 00:00: mouth [place] ic-dha 00 daily. Medical (SELECT-OB Branch + DHA) 29 mg iron-1 mg -250 mg combo pack levalbutero Yes [id number] 2{puff} Inhale 2 Univers l 45 1-19 Puffs ity of mcg/actuati 00:00: every 4 Abner as on inhaler 00 (four) Medical hours as Branch needed for Wheezing. Yes [id number] 1{packe Take 1 Univers vit 1-19 t} Packet by ity of 33-iron-fol 00:00: mouth [place] ic-dha 00 daily. Medical (SELECT-OB Branch + DHA) 29 mg iron-1 mg -250 mg combo pack levalbutero Yes [id number] 2{puff} Inhale 2 Univers l 45 1-19 Puffs ity of mcg/actuati 00:00: every 4 Abner as on inhaler 00 (four) Medical hours as Branch needed for Wheezing. No known No Univers medications [facility] Vital Signs Vital Name Observation Time Observation Value Comments Source Systolic blood 2022-02-27 23:41:00 124 mm[Hg] [facility] Diastolic blood 2022-02-27 23:41:00 87 mm[Hg] [facility] Heart rate 2022-02-27 23:41:00 91 /min [facility] Body temperature 2022-02-27 23:41:00 36.78 [facility] Respiratory rate 2022-02-27 23:41:00 [facility] Body weight 2022-02-27 23:41:00 80.74 kg [facility] BMI 2022-02-27 23:41:00 26.29 kg/m2 [facility] Oxygen saturation in 2022-02-27 23:41:00 97 /min [facility] Arterial blood by [facility] Pulse oximetry [facility] Systolic blood 2020-07-04 16:09:00 116 mm[Hg] Guido sity of pressure [facility] Diastolic blood 2020-07-04 16:09:00 78 mm[Hg] Unive rsity [facility] Heart rate 2020-07-04 16:09:00 84 /min [facility] Body temperature 2020-07-04 16:09:00 36.89 [facility] Res[facility] rate 2020-07-04 16:09:00 16 /min [facility] Body height 2020-07-04 16:09:00 175.3 cm [facility] Body weight 2020-07-04 16:09:00 84.233 kg [facility] BMI 2020-07-04 16:09:00 27.42 kg/m2 [facility] Procedures Procedure Date / Time Performed Performing Clinician [facility] e ASSIGNMENT OF BENEFITS 2022-02-28 00:18:28 Doctor Unassigned, No [facility] NOTICE OF PRIVACY 2022-02-27 23:30:29 Doctor Unassigned, No Univ [facility] CONSENT/REFUSAL FOR 2022-02-27 23:30:11 Doctor Unassigned, No [facility] DIAGNOSIS AND [facility] TREATMENT [id number] 2021-01-26 00:00:00 BAIMA.02 [facility] [place] [id number] 2021-01-26 00:00:00 BAIMA.02 [facility] [place] [id number] 2021-01-26 00:00:00 BAIMA.02 [facility] [place] POCT URINALYSIS 2020-07-04 15:51:00 Ruthann [facility] PO[facility] TEST 2020-07-04 15:50:00 [facility] ASSIGNMENT OF BENEFITS 2020-07-04 15:35:06 Doctor Unassigned, No [facility] Encounters Start End Encounter Admission Attending Care Care Encounter Source Date/Time Date/Time Type Type Clinicians Facility Department ID 2021-08-15 Inpatient Elective Noe, [facility] [id number] [facility] 14:00:00 Pepe 11 2020-10-13 Inpatient MITALI Hughes [facility] [id number] [facility] 22:48:43 Marques 58 [facility] [place] 2020-06-03 Inpatient [facility] FRANKIE [id number] [facility] 02:25:00 92 [facility] [place] 2022-02-27 2022-02-27 [id number] Univers 20:15:00 20:15:00 FOLSHAUNO [id number] ity of [facility] 2022-02-27 2022-02-27 Emergency [facility] [id number] Univers 18:54:00 19:46:00 Sita HASKINS [id number] ity [facility] [id number] [facility] [id number] [facility] 084 Branch 2022-02-27 2022-02-27 Emergency [facility] [id number] Univers 18:54:00 19:46:00 FOLUSHO ity of [facility] 2022-02-27 2022-02-27 Orders Doctor MILLER [id number] Univers 00:00:00 00:00:00 Only Unassigned, SELVIN [id number] [facility] [id number] [facility] [place] [id number] [facility] 009 Branch 2021-01-24 2021-01-28 Inpatient MITALI Salcedo OBPP [id number] [facility] 09:59:00 15:46:00 Marques 18 [facility] [place] 2021-01-19 2021-01-19 Emergency EM MITALI Hughes MARIA R [id number] [facility] 16:22:00 21:01:00 Marques 92 [facility] [place] 2021-01-09 2021-01-09 Emergency EM Saul, [facility] MARIA R [id number] [facility] 14:50:00 18:00:00 Marques 97 [facility] [place] 2020-12-28 2021-01-04 Inpatient EL MITALI Hughes OBANTE [id number] [facility] 12:51:00 11:26:00 Marques 62 [facility] [place] 2020-12-29 2020-12-29 Outpatient MITALI Hughes LABO [id number] [facility] 14:52:00 14:52:00 Marques 75 [facility] 2020-12-26 2020-12-26 Emergency EM Saul [facility] MARIA R [id number] [facility] 15:14:00 16:59:00 Marques 82 [facility] [place] 2020-09-29 2020-09-29 Outpatient GC_SWHAOMC_ PRIV PRIV [id number] [facility] 12:51:00 12:51:00 Nitza [id number] [facility] 2020-09-28 2020-09-28 Outpatient GC_SWHAOMC_ PRIV PRIV [id number] [facility] 11:20:00 11:20:00 Saul_Mickie [id number] [facility] 2020-09-28 2020-09-28 Outpatient Saul, PRIV PRIV [id number] 00:00:00 00:00:00 Marques [id number] Patrice [id number] 2020-08-15 2020-08-15 Outpatient Jill OWEN [facility] [id number] Univers 12:45:00 12:45:00 RUTHANN [id number] maurizio o [facility] 2020-08-15 2020-08-15 Outpatient Jill OWEN [facility] [id number] Univers 12:45:00 12:45:00 RUTHANN steven o [facility] 2020-08-14 2020-08-14 [facility] [id number] 00:00:00 00:00:00 Ruthann Melchor ENCHILADA MAKER [id number] [facility] [id number] MATERNAL [id number] & CHILD [address] [place] [address] 2020-08-14 2020-08-14 Telephone [facility] [id number] Univers 00:00:00 00:00:00 Roshunda R ENCHILADA MAKER [id number] ity of REGIONAL [id number] Abner as MATERNAL [id number] [facility] ical & CHILD [address] [place] [address] 2020-08-01 2020-08-01 Outpatient R LEXIE [facility] [id number] Univers 15:15:00 15:15:00 ROSHUNDA [id number] ity o f [facility] 2020-08-01 2020-08-01 [facility] [id number] Univers 15:15:00 15:15:00 ROSHUNDA ity o f [facility] 2020-07-19 2020-07-19 [facility] [id number] Univers 00:00:00 00:00:00 Roshunda R ENCHILADA MAKER [id number] ity of REGIONAL [id number] Abner as MATERNAL [id number] [facility] & CHILD [address] [place] [address] 2020-07-19 2020-07-19 [facility] [id number] Univers 00:00:00 00:00:00 Roshunda R ENCHILADA MAKER [id number] ity of REGIONAL [id number] Abner as MATERNAL [id number] [facility] ical & CHILD [address] [place] [address] 2020-07-17 2020-07-17 [place] [facility] [id number] 00:00:00 00:00:00 Roshunda R ENCHILADA MAKER [id number] REGIONAL [id number] MATERNAL [id number] & CHILD [address] [place] [address] 2020-07-17 2020-07-17 [facility] [id number] Univers 00:00:00 00:00:00 Roshunda R ENCHILADA MAKER [id number] ity of REGIONAL [id number] Abner as MATERNAL [id number] [facility] & CHILD [address] [place] [address] 2020-07-13 2020-07-13 Zoology Professor Ultrasound, Renae [facility] 1.2 .840.114 [id number] Univers 13:01:26 13:17:09 Visit Delaney Mcdaniels ENCHILADA MAKER 350.1. 13.10 ity of REGIONAL [id number] Abner as MATERNAL [id number] [facility] CHILD [facility] 2020-07-13 2020-07-13 Outpatient R [facility] [id number] Univers 13:00:00 13:00:00 [id number] [facility] 2020-07-13 2020-07-13 Outpatient P [facility] [id number] Univers 13:00:00 13:00:00 [facility] 2020-07-13 2020-07-13 [facility] 1.2.840.114 [id number] 00:00:00 00:00:00 Christina C ENCHILADA MAKER [id number] REGIONAL [id number] MATERNAL [id number] & [address] 2020-07-13 2020-07-13 [facility] [id number] Univers 00:00:00 00:00:00 Christina C ENCHILADA MAKER [id number] ity of REGIONAL [id number] Abner as MATERNAL [id number] [facility] & CHILD [address] [place] [address] 2020-07-06 2020-07-06 Franny Owen MNTIMI 1.2.840.114 [id number] Univers 00:00:00 00:00:00 Ibiscomfort R ENCHILADA MAKER [id number] ity of REGIONAL [id number] Abner as MATERNAL [id number] [facility] & CHILD [address] [place] [address] 2020-07-05 2020-07-05 [facility] [id number] Univers 09:45:00 09:45:00 IBISNDLeeroy [id number] ity o f [facility] 2020-07-04 2020-07-04 Initial Lexie [facility] [id number] Univers 09:33:19 11:05:26 Ruthann R ENCHILADA MAKER 350.1.13.10 ity of Visit [facility] [id number] Abner as MATERNAL [id number] [facility] ical & CHILD [address] [place] [address] 2020-07-04 2020-07-04 Outpatient R [facility] [id number] Univers 10:15:00 10:15:00 [id number] ity of [facility] 2020-07-04 2020-07-04 [facility] [id number] Univers 09:45:00 09:45:00 EDMUNDOLeeroy ity o [facility] 2020-07-04 2020-07-04 Orders Doctor ANGELA [id number] Univers 00:00:00 00:00:00 Only Unassigned, SELVIN 350.1.13.10 ity of Rodriguez Hevia [facility] 4.2.7.2.686 Abner as [id number] [address] Results Test Description Test Time Test Comments Results Result Comments Source HEPATITIS C BY PCR 2021-01-29 09:47:00 Test Item Value Reference Range Interpretation Comme nts HEPATITIS C BY PCR (test code Negative Negative Negative: HCV RNA Not = HEPCT) DetectedPerform ed At: BN [facility] [address] [id number] Sanjai MD Ph:[phone] HGB [id number] 07:10:00 Test Item Value Reference Range Interpretation Comments HEMOGLOBIN (test code = HGB) 11.5 g/dL 10.1-13.8 N HEMATOCRIT (test code = HCT) 36.0 % 32.5-41.8 N AG HEPATITIS B [id number] 13:50:00 Test Item Value Reference Range Interpretation Comments AG HEPATITIS B SURFACE (test code NONREACTIVE NONREACTIVE = HBSAG) AB HEPATITIS C [id number] 13:50:00 Test Item Value Reference Range Interpretation Comments AB HEPATITIS C (test EQUIVOCAL NONREACTIVE A RESULTS CALLED TO code = HCVAB) IVONN.READ ARGELIA K & CONFIRMED? YES. BY [id number]. SIGNAL TO CUTOFF (test 4.55 <0.80 H code = CUTOFF) AB [id number] 13:50:00 Test Item Value Reference Range Interpretation Comments AB TREPONEMA (test code = TREPAB) NONREACTIVE NONREACTIVE AB HIV 1 13:50:00 Test Item Value Reference Range Interpretation Comments AB HIV 1 2 (test NONREACTIVE NONREACTIVE Done by Sie mens Centaur code = [id number]) 4th Gen HIV Ag/Ab Combo Screen AG HEPATITIS B [id number] 12:22:00 Test Item Value Reference Range Interpretation Comments AG HEPATITIS B SURFACE (test code NONREACTIVE NONREACTIVE = HBSAG) AB HEPATITIS C [id number] 12:22:00 Test Item Value Reference Range Interpretation Comments AB HEPATITIS C (test code = HCVAB) NONREACTIVE SIGNAL TO CUTOFF (test code = CUTOFF) <0.80 AB [id number] 12:22:00 Test Item Value Reference Range Interpretation Comments AB TREPONEMA (test code = TREPAB) NONREACTIVE NONREACTIVE AB HIV 1 12:22:00 Test Item Value Reference Range Interpretation Comments AB HIV 1 2 (test NONREACTIVE NONREACTIVE Done by Sie mens [employer] code = [id number]) 4th Gen HIV Ag/Ab Combo Screen AG HEPATITIS B [id number] 11:51:00 Test Item Value Reference Range Interpretation Comments AG HEPATITIS B SURFACE (test code NONREACTIVE NONREACTIVE = HBSAG) AB HEPATITIS C [id number] 11:51:00 Test Item Value Reference Range Interpretation Comments AB HEPATITIS C (test code = HCVAB) NONREACTIVE SIGNAL TO CUTOFF (test code = CUTOFF) <0.80 AB [id number] 11:51:00 Test Item Value Reference Range Interpretation Comments AB TREPONEMA (test code = TREPAB) NONREACTIVE NONREACTIVE AB HIV 1 11:51:00 Test Item Value Reference Range Interpretation Comments AB HIV 1 2 (test code = [id number]) NONREACTIVE COVID 19 Asymptomatic IH [id number] 11:48:00 Test Item Value Reference Range Interpretation Comments COVID 19 NEGATIVE NEGATIVE This test has b een Asymptomatic IH AG authorize d only for the (test code = detection ofpro teins from COVNONPUIAG) SARS-CoV-2, not for any other viruses orpathogens. Ne gative results should be treated as presumptive andconfirmed wi th a molecular assay , if necessary for patientmanageme nt. Negative result s do not rule out COVID- 19 andshould not b e used as the sole basis for treatment orpat ient management deci sions, including infec tion controldecision s. Negative result s should be considered i n thecontext of a patient's recent exposure s, history and thepresence of clinical signs and symptoms consis tent withCOVID-19. T his test has not been FD A cleared or approved; th e test hasbeen authori anita by FDA under an Emerge ncy Use Authorization(E UA) for use by laborato danitza certified under the CLIA thatmeet the re quirements to perform mode rate, high or waivedcomple xity tests. This lyle t is authorized for use at thePoint of Car e (POC), i.e., in patien t care settingsoperati ng under a CLIA Certificat e of Waiver, Certifi becky ofCompliance, o r Certificate of Accreditation. This test is only authori zed for the duration of thedeclaration that circumstances e xist justifying theauthorizatio n of emergency use o f in vitro diagnostic test sfor detection and/o r diagnosis of CO VID-19 under Rzmpkfd43 4(b)(1) of the Act, 21 U.S .C. 360bbb-3(b)(1), unless theauthorizatio n is terminated or r evoked sooner. CBC W/AUTO [id number] 11:08:00 Test Item Value Reference Range Interpretation Comments WHITE BLOOD CELL (test code = WBC) 13.4 K/mm3 6.5-12.3 H RED BLOOD CELL (test code = RBC) 4.05 M/mm3 3.51-4.69 N HEMOGLOBIN (test code = HGB) 12.1 g/dL 10.1-13.8 N HEMATOCRIT (test code = HCT) 37.2 % 32.5-41.8 N MEAN CELL VOLUME (test code = MCV) 91.9 fL 84.6-96.6 N MEAN CELL HGB (test code = MCH) 29.9 pg 27.3-33.9 N MEAN CELL HGB CONCETRATION (test 32.5 gm/dL 32.0-34.2 N code = MCHC) RED CELL DISTRIBUTION WIDTH (test 13.6 % 12.2-16.3 N code = RDW) PLATELET COUNT (test code = PLT) 307 K/mm3 134-363 N MEAN PLATELET VOLUME (test code = 10.7 fL 9.2-12.7 N MPV) NEUTROPHIL % (test code = NT%) 79.3 % 57.9-77.3 H LYMPHOCYTE % (test code = LY%) 11.5 % 14.5-29.7 L MONOCYTE % (test code = MO%) 6.6 % 3.6-10.2 N EOSINOPHIL % (test code = EO%) 1.2 % 0.0-3.0 N BASOPHIL % (test code = BA%) 0.4 % 0.1-0.9 N NEUTROPHIL # (test code = NT#) 10.6 K/mm3 LYMPHOCYTE # (test code = LY#) 1.5 K/mm3 MONOCYTE # (test code = MO#) 0.9 K/mm3 EOSINOPHIL # (test code = EO#) 0.16 K/mm3 BASOPHIL # (test code = BA#) 0.1 K/mm3 RBC MORPHOLOGY REQUIRED (test code NORMAL NORMAL = RBCM) PLATELET MORPHOLOGY REQUIRED (test NORMAL NORMAL code = PLTMR) URIC [id number] 18:39:00 Test Item Value Reference Range Interpretation Comments URIC ACID (test code = URIC) 4.7 mg/dL 2.6-6.0 N [id number] 18:08:00 Test Item Value Reference Range Interpretation Comments CREATININE (test code = CREAT) 0.8 mg/dL 0.5-1.0 N [id number] 18:08:00 Test Item Value Reference Range Interpretation Comments SGOT/AST (test code = AST) 12 units/L 15-37 L [id number] 18:08:00 Test Item Value Reference Range Interpretation Comments SGPT/ALT (test code = ALT) 14 units/L 12-78 N CBC W/AUTO [id number] 17:42:00 Test Item Value Reference Range Interpretation Comments WHITE BLOOD CELL (test code = WBC) 13.3 K/mm3 6.5-12.3 H RED BLOOD CELL (test code = RBC) 3.82 M/mm3 3.51-4.69 N HEMOGLOBIN (test code = HGB) 11.4 g/dL 10.1-13.8 N HEMATOCRIT (test code = HCT) 35.3 % 32.5-41.8 N MEAN CELL VOLUME (test code = MCV) 92.4 fL 84.6-96.6 N MEAN CELL HGB (test code = MCH) 29.8 pg 27.3-33.9 N MEAN CELL HGB CONCETRATION (test 32.3 gm/dL 32.0-34.2 N code = MCHC) RED CELL DISTRIBUTION WIDTH (test 13.8 % 12.2-16.3 N code = RDW) PLATELET COUNT (test code = PLT) 304 K/mm3 134-363 N MEAN PLATELET VOLUME (test code = 10.8 fL 9.2-12.7 N MPV) NEUTROPHIL % (test code = NT%) 78.9 % 57.9-77.3 H LYMPHOCYTE % (test code = LY%) 12.7 % 14.5-29.7 L MONOCYTE % (test code = MO%) 6.2 % 3.6-10.2 N EOSINOPHIL % (test code = EO%) 0.9 % 0.0-3.0 N BASOPHIL % (test code = BA%) 0.2 % 0.1-0.9 N NEUTROPHIL # (test code = NT#) 10.5 K/mm3 LYMPHOCYTE # (test code = LY#) 1.7 K/mm3 MONOCYTE # (test code = MO#) 0.8 K/mm3 EOSINOPHIL # (test code = EO#) 0.12 K/mm3 BASOPHIL # (test code = BA#) 0.0 K/mm3 RBC MORPHOLOGY REQUIRED (test code NORMAL NORMAL = RBCM) PLATELET MORPHOLOGY REQUIRED (test NORMAL NORMAL code = PLTMR) - US FET BIO PH CA W/O [id number] 00:00:[facility] 1990 Sex: F Patient Name: ARA OROURKE Unit No: [id number] EXAMS: CPT CODE: [id number] US FET BIO PH CA W/O NST 93067 PROCEDURE INFORMATION: Exam: US Biophysical Profile Without Non-Stress Test Exam date and time: 01/19/2021 5:58 PM Age: 30 years old Clinical indication: Screening exam; Encounter for screening of mother; Third; ; Additional info: Elevated BP 40 weeks 1 day TECHNIQUE: Imaging protocol: US biophysical profile without non-stress testing. COMPARISON: OT US FET BIO PH CA W/O NST 01/09/2021 4:43 PM FINDINGS: Gestation: Single live intrauterine identified currently in cephalic position with heart tones of 161 bpm. Amniotic fluid index measures 13.2 cm. Anterior grade 2 placenta is seen without evidence for previa on these images. BIOPHYSICAL PROFILE: Breathin/2 Gross body movements: 2/2 tone: 2/2 Qualitative amniotic fluid: 2/2Biophysical Profile Score: 8/8 IMPRESSION: Biophysical profile score of 8/8. at 2054 Reported and signed by: Mazin Carnes MD CC: Marques Hughes Technologist: Alisa Torres RDMS Probe: Trnscrbd D/ (2054) GCD.CPS Orig Print D/T: S: 01/19/2021 (2055) [facility] NAME: ARA OROURKE Radiology Department PHYS: Marques Gordon MD [address] : 1990 AGE: 30 SEX: [place], [place] [address] NO: [id number] LOC: ChastityMARIA R PHONE #: [phone] EXAM DATE: 01/19/2021 STATUS: REG ER FAX #: [phone] RAD NO: Page 1 Signed Report Patient Name: ARA OROURKE Unit No: [id number] EXAMS: CPT CODE: [id number] US FET BIO PH CA W/O NST 08014 <Continued> [facility] NAME: ARA OROURKE Radiology Department PHYS: Marques Gordon MD [address] : 1990 AGE: 30 SEX: [place], [place] [address] LOC: ChastityMARIA R PHONE #: [phone] EXAM DATE: 01/19/2021 STATUS: REG ER FAX #: [phone] RAD NO: Page 2 Signed [id number] 15:53:00 Test Item Value Reference Range Interpretation Comments CREATININE (test code = CREAT) 0.7 mg/dL 0.5-1.0 N [id number] 15:53:00 Test Item Value Reference Range Interpretation Comments SGOT/AST (test code = AST) 12 units/L 15-37 L [id number] 15:53:00 Test Item Value Reference Range Interpretation Comments SGPT/ALT (test code = ALT) 15 units/L 12-78 N CBC W/AUTO [id number] 15:52:00 Test Item Value Reference Range Interpretation Comments WHITE BLOOD CELL (test code = WBC) 17.3 K/mm3 6.5-12.3 H RED BLOOD CELL (test code = RBC) 3.94 M/mm3 3.51-4.69 N HEMOGLOBIN (test code = HGB) 12.0 g/dL 10.1-13.8 N HEMATOCRIT (test code = HCT) 36.7 % 32.5-41.8 N MEAN CELL VOLUME (test code = MCV) 93.1 fL 84.6-96.6 N MEAN CELL HGB (test code = MCH) 30.5 pg 27.3-33.9 N MEAN CELL HGB CONCETRATION (test 32.7 gm/dL 32.0-34.2 N code = MCHC) RED CELL DISTRIBUTION WIDTH (test 13.8 % 12.2-16.3 N code = RDW) PLATELET COUNT (test code = PLT) 297 K/mm3 134-363 N MEAN PLATELET VOLUME (test code = 10.9 fL 9.2-12.7 N MPV) NEUTROPHIL % (test code = NT%) 79.2 % 57.9-77.3 H LYMPHOCYTE % (test code = LY%) 12.3 % 14.5-29.7 L MONOCYTE % (test code = MO%) 5.7 % 3.6-10.2 N EOSINOPHIL % (test code = EO%) 1.4 % 0.0-3.0 N BASOPHIL % (test code = BA%) 0.2 % 0.1-0.9 N NEUTROPHIL # (test code = NT#) 13.7 K/mm3 LYMPHOCYTE # (test code = LY#) 2.1 K/mm3 MONOCYTE # (test code = MO#) 1.0 K/mm3 EOSINOPHIL # (test code = EO#) 0.24 K/mm3 BASOPHIL # (test code = BA#) 0.0 K/mm3 RBC MORPHOLOGY REQUIRED (test code NORMAL NORMAL = RBCM) PLATELET MORPHOLOGY REQUIRED (test NORMAL NORMAL code = PLTMR) - FET BIO PH CA W/O [id number] 00:00:00 [facility] 1990 Sex: F Patient Name: ARA OROURKE Unit No: [id number] EXAMS: CPT CODE: [id number] FET BIO PH CA W/O NST 97571 PROCEDURE INFORMATION: Exam: US Biophysical Profile Without Non-Stress Test Exam date and time: 01/09/2021 4:43 PM Age: 30 years old Clinical indication: Other: Pih; ; Additional info: 38.5 weeks pih TECHNIQUE: Imaging protocol: US biophysical profile without non-stress testing. COMPARISON: US DUP AB/PEL/SC LTD 06/03/2020 2:38 AM FINDINGS: Gestation: A single live intrauterine is identified currently in cephalic position with heart tones of 136 bpm. Anterior grade 2 placenta is seen without evidence for previa appreciated. Amniotic fluid index measures 8.8 cm. BI OPHYSICAL PROFILE: Breathin/2 Gross body movements: 2/2 tone: 2/2 Qualitative amniotic fluid: 2/2 Biophysical Profile Score: 8/8 IMPRESSION: 1. Biophysical profile score of 8/8. 2. Amniotic fluid index of 8.8 cm. at 1731 Reported and signed by: Mazin Carnes MD CC: Marques Hughes Technologist: Jai Orourke RDMS, RVT Probe: Trnscrbd D/ (1731) GCD.CPS Orig Print D/T: S: 01/09/2021 (1732) [facility] NAME: ARA OROURKE Radiology Department PHYS: Marques Gordon MD[address] : 1990 AGE: 30 SEX: [place] [address] LOC: ChastityMARIA R PHONE #: [phone] EXAM DATE: 01/09/2021 STATUS: REG ER FAX #: [phone] RAD NO: Page 1 Signed Report Patient Name: ARA OROURKE Unit No: [id number] EXAMS: CPT CODE: [id number] US FET BIO PH CA W/O NST 61903 <Continued> [facility] NAME: ARA OROURKE Radiology Department PHYS: Marques Gordon MD [address] : 1990 AGE: 30 SEX: F [place] [address] LOC: JAIRO PHONE #: [phone] EXAM DATE: 01/09/2021 STATUS: REG ER FAX #: [phone] RAD NO: Page 2 Signed ReportCBC W/AUTO [id number] 06:46:00 Test Item Value Reference Range Interpretation Comments WHITE BLOOD CELL (test code = WBC) 12.8 K/mm3 6.5-12.3 H RED BLOOD CELL (test code = RBC) 3.51 M/mm3 3.51-4.69 N HEMOGLOBIN (test code = HGB) 10.7 g/dL 10.1-13.8 N HEMATOCRIT (test code = HCT) 33.6 % 32.5-41.8 N MEAN CELL VOLUME (test code = MCV) 95.7 fL 84.6-96.6 N MEAN CELL HGB (test code = MCH) 30.5 pg 27.3-33.9 N MEAN CELL HGB CONCETRATION (test 31.8 gm/dL 32.0-34.2 L code = MCHC) RED CELL DISTRIBUTION WIDTH (test 13.7 % 12.2-16.3 N code = RDW) PLATELET COUNT (test code = PLT) 261 K/mm3 134-363 N MEAN PLATELET VOLUME (test code = 10.5 fL 9.2-12.7 N MPV) NEUTROPHIL % (test code = NT%) 74.0 % 57.9-77.3 N LYMPHOCYTE % (test code = LY%) 15.8 % 14.5-29.7 N MONOCYTE % (test code = MO%) 6.1 % 3.6-10.2 N EOSINOPHIL % (test code = EO%) 2.5 % 0.0-3.0 N BASOPHIL % (test code = BA%) 0.3 % 0.1-0.9 N NEUTROPHIL # (test code = NT#) 9.5 K/mm3 LYMPHOCYTE # (test code = LY#) 2.0 K/mm3 MONOCYTE # (test code = MO#) 0.8 K/mm3 EOSINOPHIL # (test code = EO#) 0.32 K/mm3 BASOPHIL # (test code = BA#) 0.0 K/mm3 RBC MORPHOLOGY REQUIRED (test code NORMAL NORMAL = RBCM) PLATELET MORPHOLOGY REQUIRED (test NORMAL NORMAL code = PLTMR) COMPREHENSIVE METABOLIC [id number] 06:19:00 Test Item Value Reference Range Interpretation Comments SODIUM (test code = NA) 140 mEq/L 135-145 N POTASSIUM (test code = K) 4.0 mEq/L 3.5-5.0 N CHLORIDE (test code = CL) 107 mEq/L 100-115 N CARBON DIOXIDE (test code = CO2) 24 mEq/L 22-31 N ANION GAP (test code = GAP) 13.20 10-20 N GLUCOSE (test code = GLU) 93 mg/dL 65-110 N BLOOD UREA NITROGEN (test code = 7 mg/dL 7-18 N BUN) GLOMERULAR FILTRATION RATE (test 117 ml/min >60 N code = GFR) CREATININE (test code = CREAT) 0.6 mg/dL 0.5-1.0 N TOTAL PROTEIN (test code = PROT) 6.0 gm/dL 6.3-8.2 L ALBUMIN (test code = ALB) 2.4 gm/dL 3.4-4.8 L CALCIUM (test code = CA) 7.8 mg/dL 8.4-10.2 L BILIRUBIN TOTAL (test code = BILT) 0.2 mg/dL 0.2-1.0 N SGOT/AST (test code = AST) 10 units/L 15-37 L SGPT/ALT (test code = ALT) 12 units/L 12-78 N ALKALINE PHOSPHATASE TOTAL (test 61 units/L 46-116 N code = ALKP) [id number] 19:33:00 Test Item Value Reference Range Interpretation Comments SGOT/AST (test code = AST) 15 units/L 15-37 N [id number] 19:33:00 Test Item Value Reference Range Interpretation Comments SGPT/ALT (test code = ALT) 15 units/L 12-78 N HEPATITIS C BY [id number] 19:33:00 Test Item Value Reference Range Interpretation Comments HEPATITIS C BY PCR Negative Negative Negative: HCV RNA Not (test code = HEPCT) Detected Performed At: [facility] [place], [place] [id number] ra Amanda BERNAL Ph:[phone] [id number] 19:25:00 Test Item Value Reference Range Interpretation Comments SGOT/AST (test code = AST) 9 units/L 15-37 L [id number] 19:25:00 Test Item Value Reference Range Interpretation Comments SGPT/ALT (test code = ALT) 13 units/L 12-78 N HEPATITIS C BY [id number] 19:25:00 Test Item Value Reference Range Interpretation Comments HEPATITIS C BY PCR Negative Negative Negative: HCV RNA Not (test code = HEPCT) Detected Performed At: [facility] [id number] ra Amanda BERNAL Ph:[phone] HEPATITIS C VIRUS [id number] 21:16:00 Test Item Value Reference Range Interpretation Comments HEPATITIS C RNA BY NONE DET The quant itative PCR (test code = range of th is assay HCVRNAPCR) is 15 IU/mL to 100million IU/mL.Performed At: [facility] [id number] ra Amanda BERNAL Ph:[phone] HEPATITIS C RNA HCV Not Detected See_Comment [Automa fish message] PCR MARTIN (test IU/mL The system wh ich code = HCVRNAPCRQ) generated this result transmit fish reference range : (). The reference r ivana was not used to interpret this result as normal/abnormal . UR PROTEIN [id number] 21:27:00 Test Item Value Reference Range Interpretation Comments UR PROTEIN RANDOM 11.7 mg/dL (test code = PROTU) UR PROTEIN 24HR (test 257 mg/24HR 20-150 HH RESULT S CALLED TO code = EGGW11E) JEANCARLOS.RE AD BACK & CONFIRMED? Y.BY F.LAB.LGL0 12/14.Units for 24 HR Urine Protein h ave changed: New Un its = MG/24HR UR VOLUME (test code 2200 ML = VOL) UR PROTEIN [id number] 20:12:00 Test Item Value Reference Range Interpretation Comments UR PROTEIN RANDOM (test code = 11.7 mg/dL PROTU) UR PROTEIN 24HR (test code = mg/24HR 20-150 SVVK30Y) UR VOLUME (test code = VOL) ML [id number] 07:11:00 Test Item Value Reference Range Interpretation Comments SGOT/AST (test code = AST) 9 units/L 15-37 L [id number] 07:11:00 Test Item Value Reference Range Interpretation Comments SGPT/ALT (test code = ALT) 13 units/L 12-78 N HEPATITIS C BY [id number] 07:11:00 Test Item Value Reference Range Interpretation Comments HEPATITIS C BY PCR (test code = HEPCT) NONE DETECT CBC W/AUTO [id number] 06:58:00 Test Item Value Reference Range Interpretation Comments WHITE BLOOD CELL (test code = WBC) 13.3 K/mm3 6.5-12.3 H RED BLOOD CELL (test code = RBC) 3.43 M/mm3 3.51-4.69 L HEMOGLOBIN (test code = HGB) 10.4 g/dL 10.1-13.8 N HEMATOCRIT (test code = HCT) 32.7 % 32.5-41.8 N MEAN CELL VOLUME (test code = MCV) 95.3 fL 84.6-96.6 N MEAN CELL HGB (test code = MCH) 30.3 pg 27.3-33.9 N MEAN CELL HGB CONCETRATION (test 31.8 gm/dL 32.0-34.2 L code = MCHC) RED CELL DISTRIBUTION WIDTH (test 13.8 % 12.2-16.3 N code = RDW) PLATELET COUNT (test code = PLT) 279 K/mm3 134-363 N MEAN PLATELET VOLUME (test code = 10.5 fL 9.2-12.7 N MPV) NEUTROPHIL % (test code = NT%) 74.4 % 57.9-77.3 N LYMPHOCYTE % (test code = LY%) 16.9 % 14.5-29.7 N MONOCYTE % (test code = MO%) 5.7 % 3.6-10.2 N EOSINOPHIL % (test code = EO%) 1.7 % 0.0-3.0 N BASOPHIL % (test code = BA%) 0.3 % 0.1-0.9 N NEUTROPHIL # (test code = NT#) 9.9 K/mm3 LYMPHOCYTE # (test code = LY#) 2.2 K/mm3 MONOCYTE # (test code = MO#) 0.8 K/mm3 EOSINOPHIL # (test code = EO#) 0.22 K/mm3 BASOPHIL # (test code = BA#) 0.0 K/mm3 RBC MORPHOLOGY REQUIRED (test code NORMAL NORMAL = RBCM) PLATELET MORPHOLOGY REQUIRED (test NORMAL NORMAL code = PLTMR) AG HEPATITIS B [id number] 20:47:00 Test Item Value Reference Range Interpretation Comments AG HEPATITIS B SURFACE (test code NONREACTIVE NONREACTIVE = HBSAG) IS CONSENT FORM SIGNED FOR HIV TESTING? YAB HEPATITIS C [id number] 20:47:00 Test Item Value Reference Range Interpretation Comments AB HEPATITIS C (test EQUIVOCAL NONREACTIVE A RESULTS CALLED TO code = HCVAB) ТАТЬЯНА HARP .READ BACK & CONFIRME D? Y.BY F.LAB. 12/28/201917. SIGNAL TO CUTOFF (test 4.96 <0.80 H code = CUTOFF) IS CONSENT FORM SIGNED FOR HIV TESTING? YAB [id number] 20:47:00 Test Item Value Reference Range Interpretation Comments AB TREPONEMA (test code = TREPAB) NONREACTIVE NONREACTIVE IS CONSENT FORM SIGNED FOR HIV TESTING? YAB HIV 1 20:47:00 Test Item Value Reference Range Interpretation Comments AB HIV 1 2 (test code = NONREACTIVE INDEX NONREACTIVE [id number]) IS CONSENT FORM SIGNED FOR HIV TESTING? YAB HIV 1 20:46:00 Test Item Value Reference Range Interpretation Comments AB HIV 1 2 (test code = NONREACTIVE INDEX NONREACTIVE [id number]) IS CONSENT FORM SIGNED FOR HIV TESTING? YAG HEPATITIS B [id number] 19:21:00 Test Item Value Reference Range Interpretation Comments AG HEPATITIS B SURFACE (test code NONREACTIVE NONREACTIVE = HBSAG) IS CONSENT FORM SIGNED FOR HIV TESTING? YAB HEPATITIS C [id number] 19:21:00 Test Item Value Reference Range Interpretation Comments AB HEPATITIS C (test EQUIVOCAL NONREACTIVE A RESULTS CALLED TO code = HCVAB) ТАТЬЯНА HARP .READ BACK & CONFIRME D? Y.BY F.LAB. 12/28/201917. SIGNAL TO CUTOFF (test 4.96 <0.80 H code = CUTOFF) IS CONSENT FORM SIGNED FOR HIV TESTING? YAB [id number] 19:21:00 Test Item Value Reference Range Interpretation Comments AB TREPONEMA (test code = TREPAB) NONREACTIVE NONREACTIVE IS CONSENT FORM SIGNED FOR HIV TESTING? YAB HIV 1 19:21:00 Test Item Value Reference Range Interpretation Comments AB HIV 1 2 (test code = [id number]) NONREACTIVE IS CONSENT FORM SIGNED FOR HIV TESTING? [id number] 16:09:00 Test Item Value Reference Range Interpretation Comments SGOT/AST (test code = AST) 15 units/L 15-37 N [id number] 16:09:00 Test Item Value Reference Range Interpretation Comments SGPT/ALT (test code = ALT) 15 units/L 12-78 N CBC W/AUTO [id number] 15:49:00 Test Item Value Reference Range Interpretation Comments WHITE BLOOD CELL (test code = WBC) 17.0 K/mm3 6.5-12.3 H RED BLOOD CELL (test code = RBC) 3.72 M/mm3 3.51-4.69 N HEMOGLOBIN (test code = HGB) 11.4 g/dL 10.1-13.8 N HEMATOCRIT (test code = HCT) 35.7 % 32.5-41.8 N MEAN CELL VOLUME (test code = MCV) 96.0 fL 84.6-96.6 N MEAN CELL HGB (test code = MCH) 30.6 pg 27.3-33.9 N MEAN CELL HGB CONCETRATION (test 31.9 gm/dL 32.0-34.2 L code = MCHC) RED CELL DISTRIBUTION WIDTH (test 13.6 % 12.2-16.3 N code = RDW) PLATELET COUNT (test code = PLT) 313 K/mm3 134-363 N MEAN PLATELET VOLUME (test code = 11.0 fL 9.2-12.7 N MPV) NEUTROPHIL % (test code = NT%) 84.1 % 57.9-77.3 H LYMPHOCYTE % (test code = LY%) 9.8 % 14.5-29.7 L MONOCYTE % (test code = MO%) 3.4 % 3.6-10.2 L EOSINOPHIL % (test code = EO%) 1.1 % 0.0-3.0 N BASOPHIL % (test code = BA%) 0.4 % 0.1-0.9 N NEUTROPHIL # (test code = NT#) 14.3 K/mm3 LYMPHOCYTE # (test code = LY#) 1.7 K/mm3 MONOCYTE # (test code = MO#) 0.6 K/mm3 EOSINOPHIL # (test code = EO#) 0.19 K/mm3 BASOPHIL # (test code = BA#) 0.1 K/mm3 RBC MORPHOLOGY REQUIRED (test code NORMAL NORMAL = RBCM) PLATELET MORPHOLOGY REQUIRED (test NORMAL NORMAL code = PLTMR) UR PROTEIN/CREATININE [id number] 13:50:00 Test Item Value Reference Range Interpretation Comments UR PROTEIN RANDOM (test code = 17.7 mg/dL PROTU) UR CREATININE RANDOM (test 88.0 mg/dL code = CREATU) PROTEIN/CREATININE RATIO (test 201.1 mg/gcrea <200 H code = P/CRATIO) AB [id number] 17:42:00 Test Item Value Reference Range Interpretation Comments AB TREPONEMA (test code = TREPAB) NONREACTIVE NONREACTIVE Comments to Ranch Supervisor: LDO JIS CONSENT FORM SIGNED FOR HIV TESTING? YAB HIV 1 17:42:00 Test Item Value Reference Range Interpretation Comments AB HIV 1 2 (test NONREACTIVE NONREACTIVE [facility] code = [id number]) 4th Gen HIV Ag/Ab Combo Screen Comments to Ranch Supervisor: LDO JIS CONSENT FORM SIGNED FOR HIV TESTING? Y [id number] 16:13:00 Test Item Value Reference Range Interpretation Comments CREATININE (test code = CREAT) 0.7 mg/dL 0.5-1.0 N [id number] 16:13:00 Test Item Value Reference Range Interpretation Comments SGOT/AST (test code = AST) 14 units/L 15-37 L [id number] 16:13:00 Test Item Value Reference Range Interpretation Comments SGPT/ALT (test code = ALT) 18 units/L 12-78 N CBC W/AUTO [id number] 15:37:00 Test Item Value Reference Range Interpretation Comments WHITE BLOOD CELL (test code = WBC) 13.0 K/mm3 6.5-12.3 H RED BLOOD CELL (test code = RBC) 3.83 M/mm3 3.51-4.69 N HEMOGLOBIN (test code = HGB) 11.5 g/dL 10.1-13.8 N HEMATOCRIT (test code = HCT) 35.9 % 32.5-41.8 N MEAN CELL VOLUME (test code = MCV) 93.7 fL 84.6-96.6 N MEAN CELL HGB (test code = MCH) 30.0 pg 27.3-33.9 N MEAN CELL HGB CONCETRATION (test 32.0 gm/dL 32.0-34.2 N code = MCHC) RED CELL DISTRIBUTION WIDTH (test 13.5 % 12.2-16.3 N code = RDW) PLATELET COUNT (test code = PLT) 321 K/mm3 134-363 N MEAN PLATELET VOLUME (test code = 10.5 fL 9.2-12.7 N MPV) NEUTROPHIL % (test code = NT%) 76.4 % 57.9-77.3 N LYMPHOCYTE % (test code = LY%) 13.9 % 14.5-29.7 L MONOCYTE % (test code = MO%) 6.3 % 3.6-10.2 N EOSINOPHIL % (test code = EO%) 1.8 % 0.0-3.0 N BASOPHIL % (test code = BA%) 0.3 % 0.1-0.9 N NEUTROPHIL # (test code = NT#) 9.9 K/mm3 LYMPHOCYTE # (test code = LY#) 1.8 K/mm3 MONOCYTE # (test code = MO#) 0.8 K/mm3 EOSINOPHIL # (test code = EO#) 0.24 K/mm3 BASOPHIL # (test code = BA#) 0.0 K/mm3 RBC MORPHOLOGY REQUIRED (test code NORMAL NORMAL = RBCM) PLATELET MORPHOLOGY REQUIRED (test NORMAL NORMAL code = PLTMR) URINALYSIS [id number] 20:41:00 Test Item Value Reference Range Interpretation Comments UA COLOR (test code = COLU) YELLOW YELLOW UA APPEARANCE (test code = Slightly-Cloudy CLEAR APPU) UA GLUCOSE DIPSTICK (test NEGATIVE NEG code = DGLUU) UA BILIRUBIN DIPSTICK (test NEGATIVE NEG code = BILU) UA KETONE DIPSTICK (test code NEGATIVE NEG = KETU) UA SPECIFIC GRAVITY (test 1.009 1.001-1.035 N code = SGU) UA BLOOD DIPSTICK (test code 1+ NEG A = JENNIFER) UA PH DIPSTICK (test code = 6.0 5-9 SHERI) UA PROTEIN DIPSTICK (test NEGATIVE NEG code = PROU) UA UROBILINIOGEN DIPSTICK NEGATIVE mg/dL NEG (test code = URO) UA NITRITE DIPSTICK (test NEG NEG code = JAY JAY) UA LEUKOCYTE ESTERASE 2+ NEG A DIPSTICK (test code = LEUU) UA WBC (test code = WBCU) 3-5 #/hpf NONE SEEN A UA RBC (test code = RBCU) 3-5 #/hpf NONE SEEN A UA EPITHELIAL CELLS (test MODERATE #/HPF RARE-FEW A code = EPIU) UA BACTERIA (test code = RARE /HPF RARE-FEW BACU) UA MUCUS (test code = MUCU) RARE NONE SEEN URINE SAMPLE: CLEAN CATCHPOCT URINALYSIS W SPECIFIC [id number] 15:51:00 Test Item Value Reference Range Interpretation Comments POCT U SP GRAV (test code = . 1.005-1.025 3255) POCT PH U (test code = 3254) 5 mg/dl 5-8 POCT U LEUK EST (test code = 2+ Negative - Negative 3263) POCT U NIT (test code = 3262) negative Negative - Negative POCT U PROT (test code = 3259) trace Negative - Negative POCT U GLU (test code = 3256) negative Negative - Negative POCT U KETONE (test code = 3258) small Negative - Negative POCT U UROBILI (test code = . 0.2-1 3260) POCT U BILI (test code = 3261) . Negative - Negative POCT U BLD (test code = 3257) negative Negative - Negative POCT U COLOR (test code = 3266) POCT U APPEAR (test code = 3267) [id number] 15:50:00 Test Item Value Reference Range Interpretation Comments POCT PREG (test code = 1605) Positive On board controls acceptable with C Yes Line (test code = 3574) POCT PREG LOT # (test code = 3575) POCT PREG TEST DATE (test code = 3576) [facility] C[facility] IF [id number] 03:41:00 Test Item Value Reference Range Interpretation Comments UA COLOR (test code = COLU) YELLOW YELLOW UA APPEARANCE (test code = Slightly-Cloudy CLEAR APPU) UA GLUCOSE DIPSTICK (test NEGATIVE NEG code = DGLUU) UA BILIRUBIN DIPSTICK (test NEGATIVE NEG code = BILU) UA KETONE DIPSTICK (test code NEGATIVE NEG = KETU) UA SPECIFIC GRAVITY (test 1.018 1.001-1.035 N code = SGU) UA BLOOD DIPSTICK (test code NEG NEG = JENNIFER) UA PH DIPSTICK (test code = 5.0 5-9 SHERI) UA PROTEIN DIPSTICK (test NEGATIVE NEG code = PROU) UA UROBILINIOGEN DIPSTICK NEGATIVE mg/dL NEG (test code = URO) UA NITRITE DIPSTICK (test NEG NEG code = JAY JAY) UA LEUKOCYTE ESTERASE 3+ NEG A DIPSTICK (test code = LEUU) UA WBC (test code = WBCU) 6-10 #/hpf NONE SEEN A UA RBC (test code = RBCU) 3-5 #/hpf NONE SEEN A UA EPITHELIAL CELLS (test FEW #/HPF RARE-FEW code = EPIU) UA BACTERIA (test code = RARE /HPF RARE-FEW BACU) UA MUCUS (test code = MUCU) RARE NONE SEEN Indication for culture: Suprapubic PainSpecimen Description: CLEAN CATCHHCG [id number] 03:39:00 Test Item Value Reference Range Interpretation Comments HCG SERUM (test 92266 INTERPRETATI ON:VALUES BETWEEN code = HCG) 15-20 milliInte rnational units/mL NEED T O BERETESTED WITHIN 48 HOURS . All units for these ranges ar e in milliInternatio nalunits/mL0-1 WK AFTER CONCEP TION 0-50 1-2 WKS AFTER SHAUN PTION 40-3002-3 WKS AFTER SHAUN PTION 100-1,0003-4 WK S AFTER CONCEPTION 500- 6,0001-2 MONTHS AFTER CONCEPTIO N 5,000-200,0002- 3 MONTHS AFTER CONCEPTION 10,0 00-100,0002ND TRIMESTER 3,000 -50,0003RD TRIMESTER 1,00 0-50,000 SPECIMENS WITH AN HCG LEVEL FROM 0-6 milliInternatio nalunits/mL SHOULD BE CONSI DERED NEGATIVE - DUP AB/PEL/SC/[id number] 03:38:00 [facility] : 1990 Sex: F Patient Name: KELLEE OROURKE Unit No: [id number] EXAMS: CPT CODE: [id number] DUP AB/PEL/SC/LTD [id number]: US, US PREG 1ST TRIMTR: 06/03/2020, 0238 hours EXAM: US, DUP AB/PEL/SC LTD: 06/03/2020, 0238 hours Clinical Indication: Pain. Evaluate for ectopic. Heavy bleeding. Comparison: None. TECHNIQUE: Technique: Grayscale, color and Doppler transabdominal imaging of the pelvis was performed with standard technique. Patient in pain and refused endovaginal pelvic ultrasound. FINDINGS: UTERUS: Uterus is anteverted and measures 10.1 x 5.8 x 5.5 cm. Uterus is unremarkable for echotexture. An intrauterine gestational sac is seen measuring 3.1 x 1.5 x 2.2 cm with mean sac diameter of 2.28 cm. A pole is seen. heart rate is 1 60 bpm Sonographic gestational age is 7 weeks 2 days with CRL measurement of 1.11 cm. Sonographic VASQUEZ is 01/18/2021. Yolk sac identified. A subchorionic bleed is seen measuring 1.2 x 0.6 x 0.7 cm. OVARIES: RIGHT: 2.8 x 1.9 x 3.8 cm. LEFT: 2.0 x 1.6 x 1.8 cm. There is normal ovarian contour and morphology. There are no adnexal masses. The limited Doppler images show normal bilateral ovarian blood flow. OTHER FINDINGS: No free fluid in the pelvic cul-de-sac. If there is further concern, followup pelvic sonography may be performed. IMPRESSION: 1. Single viable early intrauterine gestation. heart rate is 160 bpm. 2. Subchorionic bleed. SL: JSGARY [facility] NAME: KELLEE OROURKE Radiology Department PHYS: Guanako Turner MD [address] : 1990 AGE: 29 SEX: F [place] [id number] LOC: [facility] PHONE #: [phone] EXAM DATE: 06/03/2020 STATUS: PRE ER FAX #: [phone] RAD NO: Page 1 Signed Report (CONTINUED) Patient Name: KELLEE OROURKE Unit No: [id number] EXAMS: CPT CODE: [id number] DUP AB/PEL/SC/LTD 22499 (Continued) at 0338 Reported and signed by: Jozef Carpio M.D. CC: Guanako Escobedo MD Technologist: Destiny Ibarra RDMS Probe: Trnscrbd D/ (0338) [email or web address] Orig Print D/T: S: 06/03/2020 (0341) [facility] NAME: KELLEE OROURKE Radiology Department PHYS: Guanako Turner MD [address] : 1990 AGE: 29 SEX: [place] [address] LOC: ChastityERS PHONE #: [phone] EXAM DATE: 06/03/2020 STATUS: PRE ER FAX #: [phone] RAD NO: Page 2 Signed Report Patient Name: KELLEE OROURKE Unit No: [id number] EXAMS: CPT CODE: [id number] DUP AB/PEL/SC/LTD 29513 (Continued) [facility] NAME: KELLEE OROURKE Radiology Department PHYS: Guanako Turner MD [address] : 1990 AGE: 29 SEX: F [place] [address] LOC: Milka.ERS PHONE #: [phone] EXAM DATE: 06/03/2020 STATUS: PRE ER FAX #: [phone] RAD NO: Page 3 Signed Report- US PREG EVAL 1ST [id number] 03:38:00[facility] : 1990 Sex: F Patient Name: KELLEE OROURKE Unit No: [id number] EXAMS: CPT CODE: [id number] US PREG EVAL 1ST TRIMTR 55082 EXAM: US, US PREG 1ST TRIMTR: 06/03/2020, 0238 hours EXAM: US, DUP AB/PEL/SC LTD: 06/03/2020, 0238 hours Clinical Indication: Pain. Evaluate for ectopic. Heavy bleeding. Comparison: None. TECHNIQUE: Technique: Grayscale, color and Doppler transabdominal imaging of the pelvis was performed with st andard technique. Patient in pain and refused endovaginal pelvic ultrasound. FINDINGS: UTERUS: Uterus is anteverted and measures 10.1 x 5.8 x 5.5 cm. Uterus is unremarkable for echotexture. An intrauterine gestational sac is seen measuring 3.1 x 1.5 x 2.2 cm with mean sac diameter of 2.28 cm. A pole is seen. heart rate is 1 60 bpm Sonographic gestational age is 7 weeks 2 days with CRL measurement of 1.11 cm. Sonographic VASQUEZ is 01/18/2021. Yolk sac identified. A subchorionic bleed is seen measuring 1.2 x 0.6 x 0.7 cm. OVARIES: RIGHT: 2.8 x 1.9 x 3.8 cm. LEFT: 2.0 x 1.6 x 1.8 cm. There is normal ovarian contour and morphology. There are no adnexal masses. The limited Doppler images show normal bilateral ovarian blood flow. OTHER FINDINGS: No free fluid in the pelvic cul-de-sac. If there is further concern, followup pelvic sonography may be performed. IMPRESSION: 1. Single viable early intrauterine gestation. heart rate is 160 bpm. 2. Subchorionic bleed. SL: JSYED-H [facility] NAME: SHARADKELLEE Radiology Department PHYS: Guanako Turner MD [address] : 1990 AGE: 29 SEX: F [place] [address] LOC: Milka.ERS PHONE #: [phone] EXAM DATE: 06/03/2020 STATUS: PRE ER FAX #: [phone] RAD NO: Page 1 Signed Report (CONT INUED) Patient Name: KELLEE OROURKE Unit No: [id number] EXAMS: CPT CODE: [id number] US PREG EVAL 1ST TRIMTR [id number] (Continued) at 0338 Reported and signed by: Jozef Carpio M.D. CC: Guanako Escobedo MD Technologist: Destiny Ibarra RDMS Probe: Trnscrbd D/ (0338) [email or web address] Orig Print D/T: S: 06/03/2020 (034) [facility] NAME: SHARADKELLEE Radiology Department PHYS: Guanako Turner MD [address]DOB: 1990 AGE: 29 SEX: F [place] [address] LOC: Milka.ERS PHONE #: [phone] EXAM DATE: 06/03/2020 STATUS: PRE ER FAX #: [phone] RAD NO: Page 2 Signed Report Patient Name: KELLEE OROURKE Unit No: [id number] EXAMS: CPT CODE: [id number] US PREG EVAL 1ST TRIMTR 23393 (Continued) [facility] NAME: SHARADKELLEE Radiology Department PHYS: Guanako Turner MD [address] : 1990 AGE: 29 SEX: F [place] [address] LOC: Milka.ERS PHONE #: [phone] EXAM DATE: 06/03/2020 STATUS: PRE ER FAX #: [phone] RAD NO:Page 3 Signed ReportCHEMISTRY 7 [id number] 03:01:00 Test Item Value Reference Range Interpretation Comments SODIUM (test code = NA) 134 mEq/L 135-145 L POTASSIUM (test code = K) 3.5 mEq/L 3.5-5.0 N CHLORIDE (test code = CL) 106 mEq/L 100-115 N CARBON DIOXIDE (test code = CO2) 20 mEq/L 22-31 L ANION GAP (test code = GAP) 11.50 10-20 N GLUCOSE (test code = GLU) 100 mg/dL 65-110 N BLOOD UREA NITROGEN (test code = 10 mg/dL 7-18 N BUN) GLOMERULAR FILTRATION RATE (test 99 ml/min >60 N code = GFR) CREATININE (test code = CREAT) 0.7 mg/dL 0.5-1.0 N CALCIUM (test code = CA) 7.9 mg/dL 8.4-10.2 L CBC W/AUTO [id number] 02:51:00 Test Item Value Reference Range Interpretation Comments WHITE BLOOD CELL (test code = WBC) 14.6 K/mm3 6.6-12.1 H RED BLOOD CELL (test code = RBC) 3.62 M/mm3 3.45-5.01 N HEMOGLOBIN (test code = HGB) 11.4 g/dL 10.7-13.9 N HEMATOCRIT (test code = HCT) 33.9 % 32.1-42.1 N MEAN CELL VOLUME (test code = MCV) 94 fL 84.1-94.8 N MEAN CELL HGB (test code = MCH) 31.5 pg 27-35 N MEAN CELL HGB CONCETRATION (test 33.6 gm/dL 32.2-34.1 N code = MCHC) RED CELL DISTRIBUTION WIDTH (test 12.1 % 12.4-16.5 L code = RDW) PLATELET COUNT (test code = PLT) 266 K/mm3 133-385 N MEAN PLATELET VOLUME (test code = 10.2 fl 9.1-12.7 N MPV) NEUTROPHIL % (test code = NT%) 76.2 % 56.5-79.4 N LYMPHOCYTE % (test code = LY%) 15.9 % 14.3-34.3 N MONOCYTE % (test code = MO%) 5.6 % 5.1-10.4 N EOSINOPHIL % (test code = EO%) 1.5 % 0.1-3.0 N BASOPHIL % (test code = BA%) 0.3 % 0.1-1.0 N NEUTROPHIL # (test code = NT#) 11.1 K/mm3 LYMPHOCYTE # (test code = LY#) 2.3 K/mm3 MONOCYTE # (test code = MO#) 0.8 K/mm3 EOSINOPHIL # (test code = EO#) 0.22 K/mm3 BASOPHIL # (test code = BA#) 0.0 K/mm3 RBC MORPHOLOGY REQUIRED (test code NORMAL NORMAL = RBCM) PLATELET MORPHOLOGY REQUIRED (test NORMAL NORMAL code = PLTMR)
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
[2022-02-28] MEDS ORDERED: IBUPROFEN 400 MG TAB ONE (12:58)
[2022-02-28] MEDS ORDERED: CYCLOBENZAPRINE 10 MG TAB ONE (12:58)
--- NOTE | 2022-02-28 13:47 | RAD REPORT ---
EXAM DESCRIPTION: RAD - Wrist Right 3 View - 02/28/2022 1:41 pm CLINICAL HISTORY: PAIN Pain COMPARISON: Wrist Right 3 View dated 06/29/2017 FINDINGS: No fracture or dislocation seen. No foreign body or other soft tissue abnormality. IMPRESSION: Negative examination.
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
[2022-03-01 16:38] VITALS: BP 115/74; TEMP 98.4; O2SAT 100
== END 2022-02-28 14:37 | disposition home or self-care (01) ==
LOC: ER 11:44
DX: S16.1XXA Strain of muscle, fascia and tendon at neck level, initial encounter (principal); R51.9 Headache, unspecified
CPT/HCPCS: 70450; 72125; 99284

== ENCOUNTER → 2023-08-03 | Emergency (ER) | payer SELFPAY ==
[~2023-08-03] MED LIST: NA CHLORIDE 0.9% 1,000 ML ONE; ONDANSETRON 4 MG/2 ML VIAL ONE
--- OUTSIDE RECORDS SUMMARY | 2023-08-03 13:45 | XMS REPORT | Continuity of Care Document ---
Author Name Unknown Address [address] [facility] [address] [place] [address] [facility] thconnect Address [address] [facility] [address] [place] [address] Care Team Providers Care Assembler Ping Pong Table Name Role Phone RUTHANN OWEN Primary Care Physician Pepe Mcknight Attending Clinician Marques Quiñones Attending Clinician Sita Woo Attending Clinician SITA CHU Attending Clinician Melyssa cabello Doctor Unassigned, Roann Attending Clinician U navailable GC_[facility]_Saul_G Attending Clinician Unavail able SaulMarques Patrice Attending Clinician + [phone] RUTHANN OWEN Attending Clinician Unavailab matilde Owen [employer] Ruthann Melchor Attending Clinician + [phone] Ultrasound, Ang-Mfm Attending Clinician Unavaila ble Erendira Sue MD, Baltazar Attending Clinician + Akinsipe WHCNP Christina C Attending Clinician + Marques Hughes Admitting Clinician Unavailab le KNOW, DOES_NOT Admitting Clinician Unavailable MICHAEL_RON_Saul_Mickie Admitting Clinician Unavail able Payers Payer Name Policy Type Policy Number Effective Date Expirati on Date Source [facility] TSE [id number] 2022 00:00:00 [facility] (MEDICAID HMO) [id number] 2020 00:00:00 Problems Condition Name Condition Details Condition Category Status Onset Date Resolution Date Last Treatment Date Treating Clinician Comments Source Subchorion ic hemorrhage of placenta in first trimester Subchorion ic hemorrhage of placenta in first trimester Disease Active 07-06 00:00: 00 Overview: Formattin g of this note might be different from the original. See Medical records report. [facility] Supervisio n of high risk , antepartum Supervisio n of high risk , antepartum Disease Active 07-04 00:00: 00 [facility] Multiparit y Multiparit y Disease Active 07-04 00:00: 00 [facility] Obstetrica l pelvic hematoma Obstetrica l pelvic hematoma Disease Active 07-04 00:00: 00 [facility] BMI 27.0-27.9, adult BMI 27.0-27.9, adult Disease Active 07-04 00:00: 00 [facility] History of asthma History of asthma Disease Active 07-04 00:00: 00 [facility] Cyst of Bartholin' s gland duct Cyst of Bartholin' s Gland Duct Problem Active 2020-1 2-30 00:00: 00 [facility] Hematoma Hematoma Problem Active 2019-06 2-30 00:00: 00 [facility] Problem Active 2019-06 2- 00:00: 00 [facility] Allergies, Adverse Reactions, Alerts Allergy Name Allergy Type Status Severity Reaction(s) Onset Date Inactive Date Treating Clinician Comments Source No Known Allergie s DA Active U 2020-0 8-11 00:00: 00 [facility] latex DA Active MO 2020-0 8-11 00:00: 00 [facility] No Known Allergie s DA Active U 2020-0 8-11 00:00: 00 [facility] latex DA Active MO rash 2020-0 8-11 00:00: 00 [facility] latex DA Active U 2020-0 8-06 00:00: 00 [facility] latex DA Active U RASH-HIVES 2020-0 8-06 00:00: 00 [facility] latex DA Active U 2020-0 7-15 00:00: 00 [facility] latex DA Active U RASH-HIVES 2020-0 7-15 00:00: 00 [facility] No Known Allergie s DA Active U 2020-0 7-13 00:00: 00 [facility] No Known Allergie s DA Active U 2020-0 7-13 00:00: 00 [facility] No Known Allergie s DA Active U 1 2-19 00:00: 00 [facility] No Known Allergie s DA Active U 1 2-19 00:00: 00 [facility] NO KNOWN ALLERGIE S Drug Class Active [facility] Social History Social Habit Start Date Stop Date Quantity Comments Source ASSERTION 2020-04-27 00:00:00 [facility] Exposure to SARS-CoV-2 (event) 2022-02-17 00:00:00 2022-02-27 18:47:00 Not sure [facility] Alcohol intake 2022-02-27 00:00:00 2022-02-27 00:00:00 Ex-drinker (finding) [facility] Tobacco use and exposure 2020-07-04 00:00:00 2020-07-04 00:00:00 Smokeless tobacco non-user [facility] Sex Assigned At 1990 00:00:00 1990 00:00:00 [facility] Smoking Status Start Date Stop Date Source Unknown if ever smoked Unive [facility] Never smoked tobacco [facility] Medications Ordered Medication Name Filled Medication Name Start Date Stop Date Current Medication? Ordering Clinician Indication Dosage Frequency Signature (SIG) Comments Components Source vit 33-iron-fol ic-dha (SELECT-OB + DHA) 29 mg iron-1 mg -250 mg combo pack 07-04 00:00: 00 Yes [id number] 1{packe t} Take 1 Packet by mouth daily. [facility] levalbutero l 45 mcg/actuati on inhaler 07-04 00:00: 00 Yes [id number] 2{puff} Inhale 2 Puffs every 4 (four) hours as needed for Wheezing. [facility] vit 33-iron-fol ic-dha (SELECT-OB + DHA) 29 mg iron-1 mg -250 mg combo pack 07-04 00:00: 00 Yes [id number] 1{packe t} Take 1 Packet by mouth daily. [facility] levalbutero l 45 mcg/actuati on inhaler 07-04 00:00: 00 Yes [id number] 2{puff} Inhale 2 Puffs every 4 (four) hours as needed for Wheezing. [facility] vit 33-iron-fol ic-dha (SELECT-OB + DHA) 29 mg iron-1 mg -250 mg combo pack 07-04 00:00: 00 Yes [id number] 1{packe t} Take 1 Packet by mouth daily. [facility] levalbutero l 45 mcg/actuati on inhaler 07-04 00:00: 00 Yes [id number] 2{puff} Inhale 2 Puffs every 4 (four) hours as needed for Wheezing. [facility] vit 33-iron-fol ic-dha (SELECT-OB + DHA) 29 mg iron-1 mg -250 mg combo pack 07-04 00:00: 00 Yes [id number] 1{packe t} Take 1 Packet by mouth daily. [facility] levalbutero l 45 mcg/actuati on inhaler 07-04 00:00: 00 Yes [id number] 2{puff} Inhale 2 Puffs every 4 (four) hours as needed for Wheezing. [facility] vit 33-iron-fol ic-dha (SELECT-OB + DHA) 29 mg iron-1 mg -250 mg combo pack 07-04 00:00: 00 Yes [id number] 1{packe t} Take 1 Packet by mouth daily. [facility] levalbutero l 45 mcg/actuati on inhaler 07-04 00:00: 00 Yes [id number] 2{puff} Inhale 2 Puffs every 4 (four) hours as needed for Wheezing. [facility] vit 33-iron-fol ic-dha (SELECT-OB + DHA) 29 mg iron-1 mg -250 mg combo pack 07-04 00:00: 00 Yes [id number] 1{packe t} Take 1 Packet by mouth daily. [facility] levalbutero l 45 mcg/actuati on inhaler 07-04 00:00: 00 Yes [id number] 2{puff} Inhale 2 Puffs every 4 (four) hours as needed for Wheezing. [facility] vit 33-iron-fol ic-dha (SELECT-OB + DHA) 29 mg iron-1 mg -250 mg combo pack 07-04 00:00: 00 Yes [id number] 1{packe t} Take 1 Packet by mouth daily. [facility] levalbutero l 45 mcg/actuati on inhaler 07-04 00:00: 00 Yes [id number] 2{puff} Inhale 2 Puffs every 4 (four) hours as needed for Wheezing. [facility] vit 33-iron-fol ic-dha (SELECT-OB + DHA) 29 mg iron-1 mg -250 mg combo pack 07-04 00:00: 00 Yes [id number] 1{packe t} Take 1 Packet by mouth daily. [facility] levalbutero l 45 mcg/actuati on inhaler 07-04 00:00: 00 Yes [id number] 2{puff} Inhale 2 Puffs every 4 (four) hours as needed for Wheezing. [facility] vit 33-iron-fol ic-dha (SELECT-OB + DHA) 29 mg iron-1 mg -250 mg combo pack 07-04 00:00: 00 Yes [id number] 1{packe t} Take 1 Packet by mouth daily. [facility] levalbutero l 45 mcg/actuati on inhaler 07-04 00:00: 00 Yes [id number] 2{puff} Inhale 2 Puffs every 4 (four) hours as needed for Wheezing. [facility] vit 33-iron-fol ic-dha (SELECT-OB + DHA) 29 mg iron-1 mg -250 mg combo pack 07-04 00:00: 00 Yes [id number] 1{packe t} Take 1 Packet by mouth daily. [facility] levalbutero l 45 mcg/actuati on inhaler 07-04 00:00: 00 Yes [id number] 2{puff} Inhale 2 Puffs every 4 (four) hours as needed for Wheezing. [facility] vit 33-iron-fol ic-dha (SELECT-OB + DHA) 29 mg iron-1 mg -250 mg combo pack 07-04 00:00: 00 Yes [id number] 1{packe t} Take 1 Packet by mouth daily. [facility] levalbutero l 45 mcg/actuati on inhaler 07-04 00:00: 00 Yes [id number] 2{puff} Inhale 2 Puffs every 4 (four) hours as needed for Wheezing. [facility] alprazolam 2 mg tablet TAKE 1 TABLET BY MOUTH THREE TIMES DAILY alprazolam 2 mg tablet TAKE 1 TABLET BY MOUTH THREE TIMES DAILY No alprazolam 2 mg tablet TAKE 1 TABLET BY MOUTH THREE TIMES DAILY [facility] No known medications No Un brenda [facility] Macrobid 100 mg capsule Take 1 capsule every 12 hours by oral route. Macrobid 100 mg capsule Take 1 capsule every 12 hours by oral route. No 1capsul e(s) Q12H Macrobid 100 mg capsule Take 1 capsule every 12 hours by oral route. [facility] prednisone 20 mg tablet TAKE 1 TABLET BY MOUTH TWICE DAILY FOR 5 DAYS prednisone 20 mg tablet TAKE 1 TABLET BY MOUTH TWICE DAILY FOR 5 DAYS No prednisone 20 mg tablet TAKE 1 TABLET BY MOUTH TWICE DAILY FOR 5 DAYS [facility] No [facility] Select-OB + DHA 29 mg iron-1 mg-250 mg oral pack Select-OB + DHA 29 mg iron-1 mg-250 mg oral pack No Select-OB + DHA 29 mg iron-1 mg-250 mg oral pack [facility] Vital Signs Vital Name Observation Time Observation Value Comments S ource Systolic blood pressure 2022-02-27 23:41:00 124 mm[Hg] [facility] Diastolic blood pressure 2022-02-27 23:41:00 87 mm[Hg] [facility] Heart rate 2022-02-27 23:41:00 91 /min [facility] Body temperature 2022-02-27 23:41:00 36.78 Rhea [facility] Respiratory rate 2022-02-27 23:41:00 18 /min [facility] Body weight 2022-02-27 23:41:00 80.74 kg [facility] BMI 2022-02-27 23:41:00 26.29 kg/m2 [facility] Oxygen saturation in Arterial blood by Pulse oximetry 2022-02-27 23:41:00 97 /min [facility] BP Diastolic 2020-09-28 00:00:00 68 mm[Hg] [facility] Height 2020-09-28 00:00:00 69 [in_i] [facility] BP Systolic 2020-09-28 00:00:00 102 mm[Hg] [facility] Body Weight 2020-09-28 00:00:00 206 [lb_av] [facility] Systolic blood pressure 2020-07-04 16:09:00 116 mm[Hg] [place] [facility] Diastolic blood pressure 2020-07-04 16:09:00 78 mm[Hg] [place] [facility] Heart rate 2020-07-04 16:09:00 84 /min [facility] Body temperature 2020-07-04 16:09:00 36.89 Rhea [facility] Respiratory rate 2020-07-04 16:09:00 16 /min [facility] Body height 2020-07-04 16:09:00 175.3 cm [facility] Body weight 2020-07-04 16:09:00 84.233 kg [facility] BMI 2020-07-04 16:09:00 27.42 kg/m2 [facility] Procedures Procedure Date / Time Performed Performing Clinician Source ASSIGNMENT OF BENEFITS 2022-02-28 00:18:28 Priyank r Unassigned, Roann [facility] NOTICE OF PRIVACY PRACTICES 2022-02-27 23:30:29 Doctor Unassigned, Roann [facility] CONSENT/REFUSAL FOR DIAGNOSIS AND TREATMENT 2022-02-27 23:30:11 Doctor Unassigned, Roann [facility] [id number] 2021-01-26 00:00:00 BAIMA.02 [facility] [id number] 2021-01-26 00:00:00 BAIMA.02 [facility] [id number] 2021-01-26 00:00:00 BAIMA.02 [facility] POCT URINALYSIS 2020-07-04 15:51:00 Ruthann Owen [facility] POCT TEST 2020-07-04 15:50:00 Tati Owen [facility] ASSIGNMENT OF BENEFITS 2020-07-04 15:35:06 Dochéctor r Unassigned, Roann [facility] Hernia Repair W/mesh [facility] Appendectomy [facility] Breast Surgery - Augmentation [facility] Plan of Care Planned Activity Planned Date Details Comments Source Diagnostic Test Pending 2020-09-28 00:00:00 urinalysis, dipstick [code = urinalysis, dipstick] [facility] Diagnostic Test Pending 2020-09-28 00:00:00 glucose tolerance test, gestational, post-50G [code = glucose tolerance test, gestational, post-50G] [facility] Diagnostic Test Pending 2020-09-28 00:00:00 Grapefruit IgE Ab [Units/volume] in Serum [code = 6131-7] [facility] Encounters Start Date/Time End Date/Time Encounter Type Admission Type Attending [facility] Facility Care Department Encounter ID Source 2021-08-15 14:00:00 Inpatient Elective Pepe Liu [facility] [id number] [facility] 2020-10-13 22:48:43 Inpatient Marques Hughes [facility] [id number] [facility] 2020-06-03 02:25:00 Inpatient [facility] [id number] [facility] 2022-02-27 18:54:00 2022-02-27 19:46:00 Emergency Sita Chu [facility] 1..840.114 350.1.13.10 [id number] [id number] [facility] 2022-02-27 18:54:00 2022-02-27 19:46:00 Emergency X SITA CHU [facility] ERT [id number] [facility] 2022-02-27 00:00:00 2022-02-27 00:00:00 Orders Only Doctor Unassigned, Roann [facility] 1..840.114 350.1.13.10 4.2.7.2.686 [id number] [facility] 2021-01-24 09:59:00 2021-01-28 15:46:00 Inpatient ALYCIA Marques Hughes [facility] OB [id number] [facility] 2021-01-19 16:22:00 2021-01-19 21:01:00 Emergency EM Marques Hughes [facility] MARIA R [id number] [facility] [place] [facility] 2021-01-09 14:50:00 2021-01-09 18:00:00 Emergency EM Marques Hughes MARIA R [id number] [facility] 2020-12-28 12:51:00 2021-01-04 11:26:00 Inpatient EL Marques Hughes OBANTE [id number] [facility] 2020-12-29 14:52:00 2020-12-29 14:52:00 Outpatient Marques Hughes [facility] [id number] [facility] 2020-12-26 15:14:00 2020-12-26 16:59:00 Emergency EM Marques Hughes MARIA R [id number] [facility] 2020-09-29 12:51:00 2020-09-29 12:51:00 Outpatient [facility]_ Saul_G [facility] PRIV [id number] [facility] 2020-09-28 11:20:00 2020-09-28 11:20:00 Outpatient [facility]_ Saul_G [facility] PRIV [id number] [facility] 2020-09-28 00:00:00 2020-09-28 00:00:00 Outpatient Marques Hughes [facility] [id number] 2020-09-28 00:00:00 2020-09-28 00:00:00 Marques Hughes MD: [address] [place] [address], [address], [place] [address] , Ph. Formerly [facility] - [facility]_ [place] Office* [id number] [facility] 2020-09-01 00:00:00 2020-09-01 00:00:00 Marques Hughes MD: [address] [facility], [address], [place] [address] , Ph. [facility] - [facility]_ [place] Office* [id number] [facility] 2020-08-15 12:45:00 2020-08-15 12:45:00 Outpatient Jill OWENRUTHANN [facility] [id number] [facility] 2020-08-14 00:00:00 2020-08-14 00:00:00 Telephone OwenRuthann [facility] INVESTMENT TRADER [facility] CHILD [facility] 1..840.114 350.1.13.10 4.2.7.2.686 [id number] 2020-08-14 00:00:00 2020-08-14 00:00:00 Telephone OwenRuthann [facility] INVESTMENT TRADER [facility]ILD [facility] 1..840.114 350.1.13.10 4.2.7.2.686 [id number] [facility] 2020-08-01 15:15:00 2020-08-01 15:15:00 Outpatient Jill OWEN RUTHANN [facility] [id number] [facility] 2020-07-19 00:00:00 2020-07-19 00:00:00 Abstract OwenRuthann [facility] INVESTMENT [facility] ..840.114 350.1.13.10 4.2.7.2.686 [id number] [facility] 2020-07-19 00:00:00 2020-07-19 00:00:00 Abstract OwenRuthann [facility] INVESTMENT TRADER [facility] CHILD [facility] 1..840.114 350.1.13.10 4.2.7.2.686 [id number] [facility] 2020-07-17 00:00:00 2020-07-17 00:00:00 Telephone Ruthann Owen [facility] INVESTMENT TRADER [facility] MATERNAL & CHILD HEALTH [facility] 1.2.840.114 350.1.13.10 4.2.7.2.686 [id number] 2020-07-17 00:00:00 2020-07-17 00:00:00 Telephone Ruthann Owen [facility] INVESTMENT TRADER [facility] MATERNAL & CHILD [facility] 1.2.840.114 350.1.13.10 4.2.7.2.686 [id number] [facility] 2020-07-13 13:01:26 2020-07-13 13:17:09 [employer] Visit Ultrasound, Delaney Gil [facility] INVESTMENT TRADER [facility] MATERNAL & CHILD [facility] 1.2.840.114 350.1.13.10 4.2.7.2.686 [id number] [facility] 2020-07-13 13:00:00 2020-07-13 13:00:00 Outpatient P [facility] [id number] [facility] 2020-07-13 00:00:00 2020-07-13 00:00:00 Telephone Christina Calderon [facility] INVESTMENT TRAD[facility] 1.2.840.114 350.1.13.10 4.2.7.2.686 [id number] 2020-07-13 00:00:00 2020-07-13 00:00:00 Telephone Christina Calderon [facility] INVESTMENT TRADER [facility] MATERNAL & CHILD [facility] 1.2.840.114 350.1.13.10 4.2.7.2.686 [id number] [facility] 2020-07-06 00:00:00 2020-07-06 00:00:00 Abstract Ruthann Owen [facility] INVESTMENT TRADER [facility] MATERNAL & CHILD [facility] 1.2.840.114 350.1.13.10 4.2.7.2.686 [id number] [facility] 2020-07-04 09:33:19 2020-07-04 11:05:26 Initial Visit OwenRuthann [facility] INVESTMENT TRADER [facility] 1.2.840.114 350.1.13.10 4.2.7.2.686 [id number] [facility] 2020-07-04 09:45:00 2020-07-04 09:45:00 Outpatient R ROCIO OWENDARIN [facility] [id number] [facility] 2020-07-04 00:00:00 2020-07-04 00:00:00 Orders Only Doctor Unassigned, Roann [facility] [id number] 350.1.13.10 4.2.7.2.686 [id number] [facility] Results Test Description Test Time Test Comments Results Result Co mments Source HGB [id number] 07:10:00* Test Item Value Reference Range Interpretation Comme nts HEMOGLOBIN (test code = HGB) 11.5 g/dL 10.1-13.8 N HEMATOCRIT (test code = HCT) 36.0 % 32.5-41.8 N AG HEPATITIS B [id number] 13:50:00* Test Item Value Reference Range Interpretation Comme nts AG HEPATITIS B SURFACE (test code = HBSAG) NONREACTIVE NONREACTIVE AB HEPATITIS C [id number] 13:50:00* Test Item Value Reference Range Interpretation Comme nts AB HEPATITIS C (test code = HCVAB) EQUIVOCAL NONREACTIVE A RESULTS CALLED Tobi OLGUIN.READ BACK & CONFIRMED? YES.BY [id number] 01/24/21 1349. SIGNAL TO CUTOFF (test code = CUTOFF) 4.55 <0.80 H AB [id number] 13:50:00* Test Item Value Reference Range Interpretation Comme nts AB TREPONEMA (test code = TREPAB) NONREACTIVE NONREACTIVE AB HIV 1 13:50:00* Test Item Value Reference Range Interpretation Comme nts AB HIV 1 2 (test code = QTH44EX) NONREACTIVE NONREACTIVE Done by [employer] HIV Ag/Ab Combo Screen AG HEPATITIS B [id number] 12:22:00* Test Item Value Reference Range Interpretation Comme nts AG HEPATITIS B SURFACE (test code = HBSAG) NONREACTIVE NONREACTIVE AB HEPATITIS C [id number] 12:22:00* Test Item Value Reference Range Interpretation Comme nts AB HEPATITIS C (test code = HCVAB) NONREACTIVE SIGNAL TO CUTOFF (test code = CUTOFF) <0.80 AB [id number] 12:22:00* Test Item Value Reference Range Interpretation Comme nts AB TREPONEMA (test code = TREPAB) NONREACTIVE NONREACTIVE AB HIV 1 12:22:00* Test Item Value Reference Range Interpretation Comme nts AB HIV 1 2 (test code = [id number]) NONREACTIVE NONREACTIVE Done by [employer] HIV Ag/Ab Combo Screen AG HEPATITIS B [id number] 11:51:00* Test Item Value Reference Range Interpretation Comme nts AG HEPATITIS B SURFACE (test code = HBSAG) NONREACTIVE NONREACTIVE AB HEPATITIS C [id number] 11:51:00* Test Item Value Reference Range Interpretation Comme nts AB HEPATITIS C (test code = HCVAB) NONREACTIVE SIGNAL TO CUTOFF (test code = CUTOFF) <0.80 AB [id number] 11:51:00* Test Item Value Reference Range Interpretation Comme nts AB TREPONEMA (test code = TREPAB) NONREACTIVE NONREACTIVE AB HIV 1 11:51:00* Test Item Value Reference Range Interpretation Comme nts AB HIV 1 2 (test code = NMP91RF) NONREACTIVE COVID 19 Asymptomatic IH [id number] 11:48:00* Test Item Value Reference Range Interpretation Comme nts COVID 19 Asymptomatic IH AG (test code = COVNONPUIAG) NEGATIVE NEGATIVE This test has be en authorized only for the detection ofproteins from SARS-CoV-2, not for any other viruses orpathogens. Negative results should be treated as presumptive andconfirmed with a molecular assay, if necessary for patientmanagement. Negative results do not rule out COVID-19 andshould not be used as the sole basis for treatment orpatient management decisions, including infection controldecisions. Negative results should be considered in thecontext of a patient's recent exposures, history and thepresence of clinical signs and symptoms consistent withCOVID-19. This test has not been FDA cleared or approved; the test hasbeen authorized by FDA under an Emergency Use Authorization(EUA) for use by laboratories certified under the CLIA thatmeet the requirements to perform moderate, high or waivedcomplexity tests. This test is authorized for use at thePoint of Care (POC), i.e., in patient care settingsoperating under a CLIA Certificate of Waiver, Certificate ofCompliance, or Certificate of Accreditation. This test is only authorized for the duration of thedeclaration that circumstances exist justifying theauthorization of emergency use of in vitro diagnostic testsfor detection and/or diagnosis of COVID-19 under Fioyrlg813(b)(1) of the Act, 21 U.S.C. 360bbb-3(b)(1), unless theauthorization is terminated or revoked sooner. CBC W/AUTO [id number] 11:08:00* Test Item Value Reference Range Interpretation Comme nts WHITE BLOOD CELL (test code = WBC) [...] pg 27.3-33.9 N MEAN CELL HGB CONCETRATION ( test code = MCHC) 32.5 gm/dL 32.0-34.2 N RED CELL DISTRIBUTION WIDTH (test code = RDW) 13.6 % 12.2-16.3 N PLATELET COUNT (test code = PLT) 307 K/mm3 134-363 N MEAN PLATELET VOLUME (test c ode = MPV) 10.7 fL 9.2-12.7 N NEUTROPHIL % (test code = NT%) 79.3 [...] = BA#) 0.1 K/mm3 RBC MORPHOLOGY REQUIRED (lyle t code = RBCM) NORMAL NORMAL PLATELET MORPHOLOGY REQUIRED (test code = PLTMR) NORMAL NORMAL URIC [id number] 18:39:00* Test Item Value Reference Range Interpretation Comme nts URIC ACID (test code = URIC) 4.7 mg/dL 2.6-6.0 N [id number] 18:08:00* Test Item Value Reference Range Interpretation Comme nts CREATININE (test code = CREAT) 0.8 mg/dL 0.5-1.0 N SGOT/[id number] 18:08:00* Test Item Value Reference Range Interpretation Comme nts SGOT/AST (test code = AST) 12 units/L 15-37 L SGPT/[id number] 18:08:00* Test Item Value Reference Range Interpretation Comme nts SGPT/ALT (test code = ALT) 14 units/L 12-78 N CBC W/AUTO [id number] 17:42:00* Test Item Value Reference Range Interpretation Comme nts WHITE BLOOD CELL (test code = WBC) [...] pg 27.3-33.9 N MEAN CELL HGB CONCETRATION ( test code = MCHC) 32.3 gm/dL 32.0-34.2 N RED CELL DISTRIBUTION WIDTH (test code = RDW) 13.8 % 12.2-16.3 N PLATELET COUNT (test code = PLT) 304 K/mm3 134-363 N MEAN PLATELET VOLUME (test c ode = MPV) 10.8 fL 9.2-12.7 N NEUTROPHIL % (test code = NT%) 78.9 [...] = BA#) 0.0 K/mm3 RBC MORPHOLOGY REQUIRED (lyle t code = RBCM) NORMAL NORMAL PLATELET MORPHOLOGY REQUIRED (test code = PLTMR) NORMAL NORMAL - US FET BIO PH OR W/O [id number] 00:00:00 [facility] : 1990 Sex: FPatient Name: ARA OROURKE Unit No: [id number] EXAMS: CPT CODE: [id number] US FET BIO PH OR W/ONST 84406 PROCEDURE INFORMATION: Exam: US Biophysical Profile Without Non-Stress Test Exam date and time: 01/19/2021 5:58 PM Age: 30 years old Clinical indication: Screening exam; Encounter for screening of mother; Third; ; Additional info: Elevated BP 40 weeks 1 day T ECHNIQUE: Imaging protocol: US biophysical profile without non-stress testing. COMPARISON: OT US FET BIO PH OR W/O NST 01/09/2021 4:43 PM FINDINGS: Gestation: Single live intrauterine identified currently in cephalic position with heart tones of 161 bpm. Amniotic fluid index jicmwtim24.2 cm. Anterior grade 2 placenta is seen without evidence for previa on these images. BIOPHYSICALPROFILE: Breathin/2 Gross body movements: 2/2 tone: 2/2 Qualitative amniotic fluid: 2/2 Biophysical Profile Score: 8/8 IMPRESSION: Biophysical profile score of 8/8. at 2054 Reported and signed by: Mazin Carnes MD CC: Marques Hughes Technologist: Alisa Torres RDMS Probe: Trnscrbd D/ (2054) GCD.CPS Orig Print D/T: S: 01/19/2021 (2055) [facility] NAME: ARA OROURKE Radiology Department PHYS: Marques Gordon MD [address] : 1990 AGE: 30 SEX: F [place], [place] [address] LOC: ChastityMARIA R PHONE #: [phone] EXAM DATE: 01/19/2021 STATUS: REG ER FAX #: [phone] RAD NO: Page 1 Signed Report Patient Name: ARA OROURKE Unit No: [id number] EXAMS: CPT CODE: [id number] US FET BIO PH OR W/O NST 52304 <Continued> [facility] NAME: ARA OROURKE Radiology Department PHYS: Marques Gordon MD [address] : 1990 AGE: 30 SEX: F [place], [place] [address] LOC: JAIRO PHONE #:[phone] EXAM DATE: 01/19/2021 STATUS: REG ER FAX #: [phone] RAD NO: Page 2 Signed [id number] 15:53:00 * Test Item Value Reference Range Interpretation Comme nts CREATININE (test code = CREAT) 0.7 mg/dL 0.5-1.0 N SGOT/[id number] 15:53:00* Test Item Value Reference Range Interpretation Comme nts SGOT/AST (test code = AST) 12 units/L 15-37 L SGPT/[id number] 15:53:00* Test Item Value Reference Range Interpretation Comme nts SGPT/ALT (test code = ALT) 15 units/L 12-78 N CBC W/AUTO [id number] 15:52:00* Test Item Value Reference Range Interpretation Comme nts WHITE BLOOD CELL (test code = WBC) [...] pg 27.3-33.9 N MEAN CELL HGB CONCETRATION ( test code = MCHC) 32.7 gm/dL 32.0-34.2 N RED CELL DISTRIBUTION WIDTH (test code = RDW) 13.8 % 12.2-16.3 N PLATELET COUNT (test code = PLT) 297 K/mm3 134-363 N MEAN PLATELET VOLUME (test c ode = MPV) 10.9 fL 9.2-12.7 N NEUTROPHIL % (test code = NT%) 79.2 [...] = BA#) 0.0 K/mm3 RBC MORPHOLOGY REQUIRED (lyle t code = RBCM) NORMAL NORMAL PLATELET MORPHOLOGY REQUIRED (test code = PLTMR) NORMAL NORMAL - US FET BIO PH OR W/O [id number] 00:00:00 [facility] 1990 Sex: FPatient Name: ARA OROURKE Unit No: [id number] EXAMS: CPT CODE: [id number] US FET BIO PH OR W/O NST 09698 PROCEDURE INFORMATION: Exam: US Biophysical Profile Without [...] appreciated. Amniotic fluid index measures 8.8 cm. BIOPHYSICAL PROFILE: Breathin/2 Gross body movements: 2/2 tone: 2/2 Qualitative amniotic fluid: 2/2 Biophysical Profile Score: 8/8 IMPRESSION: 1. Biophysical profile score of 8/8. 2. Amniotic fluid index of 8.8 cm. at 1731 Reported and signed by: Mazin Carnes MD CC: Marques Hughes Technologist: Jai Orourke RDMS, RVT Probe: Trnscrbd D/ (1731) GCD.CPS Orig Print D/T: S: 01/09/2021 (1732) [facility] NAME: ARA OROURKE Radiology Department PHYS: Marques Gordon MD [address] : 1990 AGE: 30 SEX: F [place] [address] LOC: ChastityMARIA R PHONE #: [phone] EXAM DATE: 01/09/2021 STATUS: REG ER FAX #: [phone] RAD NO: Page 1 Signed Report Patient Name: ARA OROURKE Unit No: [id number] EXAMS: CPT CODE: [id number] USFET BIO PH OR W/O NST 73075 <Continued> [facility] NAME: SHARADARA Radiology Department PHYS: Marques Gordon MD [address] : 1990 AGE: 30 SEX: F [place], [place] [address] LOC: ChastityMARIA R PHONE #: [phone] EXAM DATE: 01/09/2021 STATUS: REG ER FAX #: [phone] RAD NO: Page 2 Signed ReportCBC W/AUTO [id number] 06:46:00* Test Item Value Reference Range Interpretation Comme nts WHITE BLOOD CELL (test code = WBC) [...] pg 27.3-33.9 N MEAN CELL HGB CONCETRATION ( test code = MCHC) 31.8 gm/dL 32.0-34.2 L RED CELL DISTRIBUTION WIDTH (test code = RDW) 13.7 % 12.2-16.3 N PLATELET COUNT (test code = PLT) 261 K/mm3 134-363 N MEAN PLATELET VOLUME (test c ode = MPV) 10.5 fL 9.2-12.7 N NEUTROPHIL % (test code = NT%) 74.0 [...] = BA#) 0.0 K/mm3 RBC MORPHOLOGY REQUIRED (lyle t code = RBCM) NORMAL NORMAL PLATELET MORPHOLOGY REQUIRED (test code = PLTMR) NORMAL NORMAL COMPREHENSIVE METABOLIC [id number] 06:19:00* Test Item Value Reference Range Interpretation Comme nts SODIUM (test code = NA) 140 mEq/L 135-145 N POTASSIUM (test code = K) 4.0 mEq/L 3.5-5.0 N CHLORIDE (test code = CL) 107 mEq/L 100-115 N CARBON DIOXIDE (test code = CO2) 24 mEq/L 22-31 N ANION GAP (test code = GAP) 13.20 10-20 N GLUCOSE (test code = GLU) 93 mg/dL 65-110 N BLOOD UREA NITROGEN (test co de = BUN) 7 mg/dL 7-18 N GLOMERULAR FILTRATION RATE ( test code = GFR) 117 ml/min >60 N CREATININE (test code = CREAT) 0.6 mg/dL [...] 12 units/L 12-78 N ALKALINE PHOSPHATASE TOTAL ( test code = ALKP) 61 units/L 46-116 N SGOT/[id number] 19:33:00* Test Item Value Reference Range Interpretation Comme nts SGOT/AST (test code = AST) 15 units/L 15-37 N SGPT/[id number] 19:33:00* Test Item Value Reference Range Interpretation Comme nts SGPT/ALT (test code = ALT) 15 units/L 12-78 N HEPATITIS C BY [id number] 19:33:00* Test Item Value Reference Range Interpretation Comme nts HEPATITIS C BY PCR (test code = HEPCT) Negative Negative Negative: HC V RNA Not DetectedPerformed At: [employer] [id number] Sanjai MD Ph:[phone] SGOT/[id number] 19:25:00* Test Item Value Reference Range Interpretation Comme nts SGOT/AST (test code = AST) 9 units/L 15-37 L SGPT/[id number] 19:25:00* Test Item Value Reference Range Interpretation Comme nts SGPT/ALT (test code = ALT) 13 units/L 12-78 N HEPATITIS C BY [id number] 19:25:00* Test Item Value Reference Range Interpretation Comme nts HEPATITIS C BY PCR (test code = HEPCT) Negative Negative Negative: HC V RNA Not DetectedPerformed At: [employer] [id number] Patel MD Ph:[phone] HEPATITIS C VIRUS [id number] 21:16:00* Test Item Value Reference Range Interpretation Comme nts HEPATITIS C RNA BY PCR (test code = HCVRNAPCR) NONE DET The quantitative range of this assay is 15 IU/mL to 100million IU/mL.Performed At: [facility] [id number] Sanjai MD Ph:[phone] HEPATITIS C RNA PCR MARTIN (test code = HCVRNAPCRQ) HCV Not Detected IU/mL See_Comment [Automated message] The system which generated this result transmitted reference range: (). The reference range was not used to interpret this result as normal/abnormal. UR PROTEIN [id number] 21:27:00* Test Item Value Reference Range Interpretation Comme nts UR PROTEIN RANDOM (test code = PROTU) 11.7 mg/dL UR PROTEIN 24HR (test code = YLWU47B) 257 mg/24HR 20-150 HH RESULTS CALLED Tobi ARSHAD.READ BACK & CONFIRMED? Y.BY FMARISA.LGL0 12/30/202123.Units for 24 HR Urine Protein have changed: New Units = MG/24HR UR VOLUME (test code = VOL) 2200 ML UR PROTEIN [id number] 20:12:00* Test Item Value Reference Range Interpretation Comme nts UR PROTEIN RANDOM (test code = PROTU) 11.7 mg/dL UR PROTEIN 24HR (test code = XWNQ75I) mg/24HR 20-150 UR VOLUME (test code = VOL) ML SGOT/[id number] 07:11:00* Test Item Value Reference Range Interpretation Comme nts SGOT/AST (test code = AST) 9 units/L 15-37 L SGPT/[id number] 07:11:00* Test Item Value Reference Range Interpretation Comme nts SGPT/ALT (test code = ALT) 13 units/L 12-78 N HEPATITIS C BY [id number] 07:11:00* Test Item Value Reference Range Interpretation Comme nts HEPATITIS C BY PCR (test code = HEPCT) NONE DET ECT CBC W/AUTO [id number] 06:58:00* Test Item Value Reference Range Interpretation Comme nts WHITE BLOOD CELL (test code = WBC) [...] pg 27.3-33.9 N MEAN CELL HGB CONCETRATION ( test code = MCHC) 31.8 gm/dL 32.0-34.2 L RED CELL DISTRIBUTION WIDTH (test code = RDW) 13.8 % 12.2-16.3 N PLATELET COUNT (test code = PLT) 279 K/mm3 134-363 N MEAN PLATELET VOLUME (test c ode = MPV) 10.5 fL 9.2-12.7 N NEUTROPHIL % (test code = NT%) 74.4 [...] = BA#) 0.0 K/mm3 RBC MORPHOLOGY REQUIRED (lyle t code = RBCM) NORMAL NORMAL PLATELET MORPHOLOGY REQUIRED (test code = PLTMR) NORMAL NORMAL AG HEPATITIS B [id number] 20:47:00* Test Item Value Reference Range Interpretation Comme nts AG HEPATITIS B SURFACE (test code = HBSAG) NONREACTIVE NONREACTIVE IS CONSENT FORM SIGNED FOR HIV TESTING? YAB HEPATITIS C [id number] 20:47:00* Test Item Value Reference Range Interpretation Comme nts AB HEPATITIS C (test code = HCVAB) EQUIVOCAL NONREACTIVE A RESULTS CALLED [employer] MedsystemsDARYL RAMIREZKATIUSKA.READ BACK & CONFIRMED? Y.BY F.LAB. 12/28/201917. SIGNAL TO CUTOFF (test code = CUTOFF) 4.96 <0.80 H IS CONSENT FORM SIGNED FOR HIV TESTING? YAB [id number] 20:47:00* Test Item Value Reference Range Interpretation Comme nts AB TREPONEMA (test code = TREPAB) NONREACTIVE NONREACTIVE IS CONSENT FORM SIGNED FOR HIV TESTING? YAB HIV 1 20:47:00* Test Item Value Reference Range Interpretation Comme nts AB HIV 1 2 (test code = GPD31EK) NONREACTIVE INDEX NONREACTIVE IS CONSENT FORM SIGNED FOR HIV TESTING? YAB HIV 1 20:46:00* Test Item Value Reference Range Interpretation Comme nts AB HIV 1 2 (test code = JKI65FW) NONREACTIVE INDEX NONREACTIVE IS CONSENT FORM SIGNED FOR HIV TESTING? YAG HEPATITIS B [id number] 19:21:00* Test Item Value Reference Range Interpretation Comme nts AG HEPATITIS B SURFACE (test code = HBSAG) NONREACTIVE NONREACTIVE IS CONSENT FORM SIGNED FOR HIV TESTING? YAB HEPATITIS C [id number] 19:21:00* Test Item Value Reference Range Interpretation Comme nts AB HEPATITIS C (test code = HCVAB) EQUIVOCAL NONREACTIVE A RESULTS CALLED [employer] MedsystemsDARYL HARP.READ BACK & CONFIRMED? Y.BY F.LAB. 12/28/201917. SIGNAL TO CUTOFF (test code = CUTOFF) 4.96 <0.80 H IS CONSENT FORM SIGNED FOR HIV TESTING? YAB [id number] 19:21:00* Test Item Value Reference Range Interpretation Comme nts AB TREPONEMA (test code = TREPAB) NONREACTIVE NONREACTIVE IS CONSENT FORM SIGNED FOR HIV TESTING? YAB HIV 1 19:21:00* Test Item Value Reference Range Interpretation Comme nts AB HIV 1 2 (test code = OGR53MS) NONREACTIVE IS CONSENT FORM SIGNED FOR HIV TESTING? YSGOT/[id number] 16:09:00* Test Item Value Reference Range Interpretation Comme nts SGOT/AST (test code = AST) 15 units/L 15-37 N SGPT/[id number] 16:09:00* Test Item Value Reference Range Interpretation Comme nts SGPT/ALT (test code = ALT) 15 units/L 12-78 N CBC W/AUTO [id number] 15:49:00* Test Item Value Reference Range Interpretation Comme nts WHITE BLOOD CELL (test code = WBC) [...] pg 27.3-33.9 N MEAN CELL HGB CONCETRATION ( test code = MCHC) 31.9 gm/dL 32.0-34.2 L RED CELL DISTRIBUTION WIDTH (test code = RDW) 13.6 % 12.2-16.3 N PLATELET COUNT (test code = PLT) 313 K/mm3 134-363 N MEAN PLATELET VOLUME (test c ode = MPV) 11.0 fL 9.2-12.7 N NEUTROPHIL % (test code = NT%) 84.1 [...] = BA#) 0.1 K/mm3 RBC MORPHOLOGY REQUIRED (lyle t code = RBCM) NORMAL NORMAL PLATELET MORPHOLOGY REQUIRED (test code = PLTMR) NORMAL NORMAL UR PROTEIN/CREATININE [id number] 13:50:00* Test Item Value Reference Range Interpretation Comme nts UR PROTEIN RANDOM (test code = PROTU) 17.7 mg/dL UR CREATININE RANDOM (test code = CREATU) 88.0 mg/dL PROTEIN/CREATININE RATIO (te st code = P/CRATIO) 201.1 mg/gcrea <200 H AB [id number] 17:42:00* Test Item Value Reference Range Interpretation Comme nts AB TREPONEMA (test code = TREPAB) NONREACTIVE NONREACTIVE Comments to Principle Industrial Hygienist: LDO JIS CONSENT FORM SIGNED FOR HIV TESTING? YAB HIV 1 17:42:00* Test Item Value Reference Range Interpretation Comme nts AB HIV 1 2 (test code = GWB14YY) NONREACTIVE NONREACTIVE Done by [employer] HIV Ag/Ab Combo Screen Comments to Principle Industrial Hygienist: LDO JIS CONSENT FORM SIGNED FOR HIV TESTING? Y [id number] 16:13:00* Test Item Value Reference Range Interpretation Comme nts CREATININE (test code = CREAT) 0.7 mg/dL 0.5-1.0 N SGOT/[id number] 16:13:00* Test Item Value Reference Range Interpretation Comme nts SGOT/AST (test code = AST) 14 units/L 15-37 L [id number] 16:13:00* Test Item Value Reference Range Interpretation Comme nts SGPT/ALT (test code = ALT) 18 units/L 12-78 N CBC W/AUTO [id number] 15:37:00* Test Item Value Reference Range Interpretation Comme nts WHITE BLOOD CELL (test code = WBC) [...] pg 27.3-33.9 N MEAN CELL HGB CONCETRATION ( test code = MCHC) 32.0 gm/dL 32.0-34.2 N RED CELL DISTRIBUTION WIDTH (test code = RDW) 13.5 % 12.2-16.3 N PLATELET COUNT (test code = PLT) 321 K/mm3 134-363 N MEAN PLATELET VOLUME (test c ode = MPV) 10.5 fL 9.2-12.7 N NEUTROPHIL % (test code = NT%) 76.4 [...] = BA#) 0.0 K/mm3 RBC MORPHOLOGY REQUIRED (lyle t code = RBCM) NORMAL NORMAL PLATELET MORPHOLOGY REQUIRED (test code = PLTMR) NORMAL NORMAL URINALYSIS [id number] 20:41:00* Test Item Value Reference Range Interpretation Comme nts UA COLOR (test code = COLU) YELLOW YELLOW UA APPEARANCE (test code = APPU) Slightly-Cloudy CLEAR UA GLUCOSE DIPSTICK (test code = DGLUU) NEGATIVE NEG UA BILIRUBIN DIPSTICK (test code = BILU) NEGATIVE NEG UA KETONE DIPSTICK (test cod e = KETU) NEGATIVE NEG UA SPECIFIC GRAVITY (test code = SGU) 1.009 1.001-1.035 N UA BLOOD DIPSTICK (test code = JENNIFER) 1+ NEG A UA PH DIPSTICK (test code = SHERI) 6.0 5-9 UA PROTEIN DIPSTICK (test code = PROU) NEGATIVE NEG UA UROBILINIOGEN DIPSTICK (test code = URO) NEGATIVE mg/dL NEG UA NITRITE DIPSTICK (test code = JAY JAY) NEG NEG UA LEUKOCYTE ESTERASE DIPSTICK (test code = LEUU) 2+ NEG A UA WBC (test code = WBCU) 3-5 #/hpf NONE SEEN A UA RBC (test code = RBCU) 3-5 #/hpf NONE SEEN A UA EPITHELIAL CELLS (test code = EPIU) MODERATE #/HPF RARE-FEW A UA BACTERIA (test code = BACU) RARE /HPF RARE-FEW UA MUCUS (test code = MUCU) RARE NONE SEEN URINE SAMPLE: CLEAN CATCHPOCT URINALYSIS W SPECIFIC [id number] 15:51:00* Test Item Value Reference Range Interpretation Comme nts POCT U SP GRAV (test code = 3255) . 1.005-1.025 POCT PH U (test code = 3254) 5 mg/dl 5-8 POCT U LEUK EST (test code = 3263) 2+ Negative - Negative POCT U NIT (test code = 3262) negative Negative - Negati ve POCT U PROT (test code = 3259) trace Negative - Negat madi POCT U GLU (test code = 3256) negative Negative - Negati ve POCT U KETONE (test code = 3258) small Negative - Neg ative POCT U UROBILI (test code = 3260) . 0.2-1 POCT U BILI (test code = 3261) . Negative - Negat madi POCT U BLD (test code = 3257) negative Negative - Negati ve POCT U COLOR (test code = 3266) POCT U APPEAR (test code = 3267) [facility] [id number] 15:50:00* Test Item Value Reference Range Interpretation Comme nts POCT PREG (test code = 1605) Positive On board controls acceptable with C Line (test code = 3574) Yes POCT PREG LOT # (test code = 3575) POCT PREG TEST DATE ( test code = 3576) [facility]ball[facility] RFLX MICR CULT IF [id number] 03:41:00* Test Item Value Reference Range Interpretation Comme nts UA COLOR (test code = COLU) YELLOW YELLOW UA APPEARANCE (test code = APPU) Slightly-Cloudy CLEAR UA GLUCOSE DIPSTICK (test code = DGLUU) NEGATIVE NEG UA BILIRUBIN DIPSTICK (test code = BILU) NEGATIVE NEG UA KETONE DIPSTICK (test cod e = KETU) NEGATIVE NEG UA SPECIFIC GRAVITY (test code = SGU) 1.018 1.001-1.035 N UA BLOOD DIPSTICK (test code = JENNIFER) NEG NEG UA PH DIPSTICK (test code = SHERI) 5.0 5-9 UA PROTEIN DIPSTICK (test code = PROU) NEGATIVE NEG UA UROBILINIOGEN DIPSTICK (test code = URO) NEGATIVE mg/dL NEG UA NITRITE DIPSTICK (test code = JAY JAY) NEG NEG UA LEUKOCYTE ESTERASE DIPSTICK (test code = LEUU) 3+ NEG A UA WBC (test code = WBCU) 6-10 #/hpf NONE SEEN A UA RBC (test code = RBCU) 3-5 #/hpf NONE SEEN A UA EPITHELIAL CELLS (test code = EPIU) FEW #/HPF RARE-FEW UA BACTERIA (test code = BACU) RARE /HPF RARE-FEW UA MUCUS (test code = MUCU) RARE NONE SEEN Indication for culture: Suprapubic PainSpecimen Description: CLEAN CATCHHCG [id number] 03:39:00* Test Item Value Reference Range Interpretation Comme nts HCG SERUM (test code = HCG) 03556 INTERPRETATION:V ALUES BETWEEN 15-20 milliInternational units/mL NEED TO BERETESTED WITHIN 48 HOURS. All units for these ranges are in milliInternationalunits/mL0-1 WK AFTER CONCEPTION 0-50 1-2 WKS AFTER CONCEPTION 40-3002-3 WKS AFTER CONCEPTION 100-1,0003-4 WKS AFTER CONCEPTION 500-6,0001-2 MONTHS AFTER CONCEPTION 5,000-200,0002-3 MONTHS AFTER CONCEPTION 10,000-100,0002ND TRIMESTER 3,000-50,0003RD TRIMESTER 1,000-50,000 SPECIMENS WITH AN HCG LEVEL FROM 0-6 milliInternationalunits/mL SHOULD BE CONSIDERED NEGATIVE - DUP AB/PEL/SC/[id number] 03:38:00 [facility] : 1990 Sex: FPatient Name: KELLEE OROURKE Unit No: [id number] EXAMS: CPT CODE: [id number] DUP AB/PEL/SC/LTD 28831 EXAM: US, US PREG 1ST TRIMTR: 06/03/2020, [...] age is 7 weeks 2 days with CRLmeasurement of 1.11 cm. Sonographic VASQUEZ is 01/18/2021. [...] No free fluid in the pelvic cul-de-sac. Ifthere is further concern, followup pelvic sonography may be performed. IMPRESSION: 1. Single viableearly intrauterine gestation. heart rate is 160 bpm. 2. Subchorionic bleed. SL: [facility]ED-[facility] NAME: KELLEE OROURKE Radiology Department PHYS: TAMIKO Escobedo,AnalysaMD [address] : 1990 AGE: 29 SEX: F [place], [place] [address] LOC: Milka.ERS PHONE #: [phone] EXAM DATE: 06/03/2020 STATUS: PRE ER FAX #: [phone] RAD NO: Page 1 Signed Report (CONTINUED) Patient Name: KELLEE OROURKE Unit No: [id number] EXAMS: CPT CODE: [id number] AB/PEL/SC/LTD 49108 (Continued) at 0338 Reported and signed by: Jozef Carpio M.D. CC: Guanako Escobedo MD Technologist: Destiny Ibarra RDMS Probe: Trnscrbd D/ (337) [email or web address] Orig Print D/T: S: 06/03/2020 (340) [facility] NAME: MAR OROURKEDanelle Radiology Department PHYS: Guanako Turner MD [address] : 1990 AGE: 29 SEX: F [place] [address] LOC: Milka.ERS PHONE #: [phone] EXAM DATE: 06/03/2020 STATUS: PRE ER FAX #: [phone] RAD NO: Page 2 Signed Report Patient Name: KELLEE OROURKE Unit No: [id number] EXAMS: CPT CODE: [id number] DUP AB/PEL/SC/LTD 75051 (Continued) [facility] PHYS: Guanako Turner MD [address] : 1990 AGE: 29 SEX: F [place] [address] LOC: F.ERS PHONE #: [phone] EXAM DATE: 06/03/2020 STATUS: PRE ER FAX #: [phone] RAD NO: Page 3 Signed Report- US PREG EVAL 1ST [id number] 03:38:00[facility] : 1990 Sex: FPatient Name: KELLEE OROURKE Unit No: [id number] EXAMS: CPT CODE: [id number] US PREG EVAL 1ST TRIMTR 04892 EXAM: US, US PREG 1ST TRIMTR: 06/03/2020, 0238 hours EXAM: US, DUP AB/PEL/SC LTD: 06/03/2020, 0238 hours Clinical Indication: Pain. Evaluate for ectopic. Heavy bleeding. Comparison: None. TECHNIQUE: Technique: Grayscale, color and Doppler transabdominal imaging of the pelvis was performed with standard technique. Patient in pain and refused endovaginal pelvic ultrasound. FINDINGS: UTERUS:Uterus is anteverted and measures 10.1 x 5.8 [...] is 01/18/2021. Yolk sac identified. A subchorionic bleedis seen measuring 1.2 x 0.6 x 0.7 cm. OVARIES: RIGHT: 2.8 x 1.9 x 3.8 cm. LEFT: 2.0 x 1.6 x 1.8 cm.There is normal ovarian contour and morphology. There are no adnexal masses. The limited Doppler images show normal bilateral ovarian blood flow. OTHER FINDINGS: No free fluid in the pelvic cul-de-sac. If there is further concern, followup pelvic sonography may be performed. IMPRESSION: 1. Single viable early intrauterine gestation. heart rate is 160 bpm. 2. [facility]chorionic bleed. [facility] Radiology Department PHYS: Guanako Turner MD [address] : 1990 AGE: 29 SEX: F [place] [address] LOC:ChastityERS PHONE #: [phone] EXAM DATE: 06/03/2020 STATUS: PRE ER FAX #: [phone] RAD NO: Page 1 Signed Report (CONTINUED) Patient Name: KELLEE OROURKE Unit No: [id number] EXAMS: CPT CODE: [id number] US PREG EVAL 1ST TRIMTR 47508 (Continued) Electronically Signed by Henry Carpio on 2019 at 0338 Reported and signed by: Jozef Carpio M.D. CC: Guanako Escobedo MD Technologist: Destiny Ibarra RDMS Probe: Trnscrbd D/ (0338) [email or web address] Orig Print D/T: S: 06/03/2020 (034) [facility] NAME: KELLEE OROURKE Radiology Department PHYS: Guanako Turner MD [address] : 1990 AGE: 29 SEX: F [place] [address] LOC: ChastityERS PHONE #: [phone] EXAM DATE: 06/03/2020 STATUS: PRE ER FAX #: [phone] RAD NO: Page 2 Signed Report Patient Name: KELLEE OROURKE Unit No: [id number] EXAMS: CPT CODE: [id number] USPREG EVAL 1ST TRIMTR [id number] (Continued) [facility] NAME: KELLEE OROURKE Radiology Department PHYS: Guanako Turner MD [address] : 1990 AGE: 29 SEX: [place] [id number] LOC: [facility] PHONE #: [phone] EXAM DATE: 06/03/2020 STATUS: PRE ER FAX #: [phone] RAD NO: Page 3 Signed ReportCHEMISTRY 7 [id number] 03:01:00* Test Item Value Reference Range Interpretation Comme nts SODIUM (test code = NA) 134 mEq/L 135-145 L POTASSIUM (test code = K) 3.5 mEq/L 3.5-5.0 N CHLORIDE (test code = CL) 106 mEq/L 100-115 N CARBON DIOXIDE (test code = CO2) 20 mEq/L 22-31 L ANION GAP (test code = GAP) 11.50 10-20 N GLUCOSE (test code = GLU) 100 mg/dL 65-110 N BLOOD UREA NITROGEN (test co de = BUN) 10 mg/dL 7-18 N GLOMERULAR FILTRATION RATE ( test code = GFR) 99 ml/min >60 N CREATININE (test code = CREAT) 0.7 mg/dL 0.5-1.0 N CALCIUM (test code = CA) 7.9 mg/dL 8.4-10.2 L CBC W/AUTO [id number] 02:51:00* Test Item Value Reference Range Interpretation Comme nts WHITE BLOOD CELL (test code = WBC) [...] pg 27-35 N MEAN CELL HGB CONCETRATION ( test code = MCHC) 33.6 gm/dL 32.2-34.1 N RED CELL DISTRIBUTION WIDTH (test code = RDW) 12.1 % 12.4-16.5 L PLATELET COUNT (test code = PLT) 266 K/mm3 133-385 N MEAN PLATELET VOLUME (test c ode = MPV) 10.2 fl 9.1-12.7 N NEUTROPHIL % (test code = NT%) 76.2 [...] = BA#) 0.0 K/mm3 RBC MORPHOLOGY REQUIRED (lyle t code = RBCM) NORMAL NORMAL PLATELET MORPHOLOGY REQUIRED (test code = PLTMR) NORMAL NORMAL Notes Date/Time Note Provider Source 2021-01-28 13:19:00 [id number] rWXmvnphjhhckyqWRHsZyVFRvttD/ f+L+oqr+[id number]:1 9:00 [facility])OB Postpart Progr NoteREPORT#:[id number] REPORT STATUS: SignedDATE:01/28/21 TIME: 1319 PATIENT: ARA OROURKE UNIT #: [id number]#: [id number] ROOM/BED: [facility]-ADOB: [birth year] AGE: 30 SEX: F ATTEND: Marques Hughes [place] [facility]OSP[facility] AUTHOR: Jaclyn Miranda MD * ALL edits or amendments must be made on the electronic/computer document * Subjective SubjectiveStatus/day: post , p5Wlfcdpd reports: Patient reports: Yes: normal lochia, pain management effective, tolerating po well, voiding well. No: complaints. Comments:desires d/c home Objective Nursing Documentation ReviewNursing data:The data set between the solid lines has been imported from nursing documentation. Any exceptions have been noted below under Provider comments. Feeding preference: Post hemorrhage risk score: Provider comments on imported nursing data: [] GeneralVS:reviewed vs from rn:VINICIO AYOUB PATIENT WEIGHT: Weight (lb): Weight (oz): Weight (kg): Physical ExamAbdomen: soft, no abnormal tendernessUterus: firm, involution appropriate, non-tender ResultResults: no new labs, vital signs stable Diagnosis, Assessment Plan Diagnosis, Assessment PlanAssessment: nml progressPlan: routine care, discharge today at 1321 RPT #:[id number] OF REPORT PRProgress Flxb1704-98-11O32:19:00F.QFGS26197462-3452NVUnnhz able for patient kmbaVKVVSGGWCSMYDN5687-13-74K39:21:18 [facility] 2021-01-27 10:26:00 XAwsptfuzpx05206848F Cx4I954vmrduQLEiubmOGtZZt+u9c MuDDVQoRo9Ypc9VMn1qqcAxspd6xEpgKYh6441-29-90Z08:2 6:00 [facility] ([facility])OB Postpart Progr NoteREPORT#:[id number] REPORT STATUS: SignedDATE:01/27/21 TIME: 1026 PATIENT: ARA OROURKE UNIT #: [id number]#: [id number] ROOM[facility]BED: [facility]-ADOB: [birth year] AGE: 30 SEX: F ATTEND: Marques Hughes MDADM AUTHOR: Rand Evans MD * ALL edits or amendments must be made on the electronic/computer document * Subjective SubjectiveStatus/day: post (d1)Patient reports: Patient reports: Yes: normal lochia, pain management effective, tolerating po well, voiding well, tolerating ambulation. Objective Nursing Documentation ReviewNursing data:The data set between the solid lines has been imported from nursing documentation. Any exceptions have been noted below under Provider comments. Feeding preference: Post hemorrhage risk score: Provider comments on imported nursing data: [] GeneralVS:7:58am Pulse 102BP 128/82Temp 98.6FMedications:Active Meds + DC'd Last 24 HrsMultivi/Iron Carb/Fe Sulf/FA/Prenat 1 TAB DAILY PO Docusate Sodium 200 MG BEDTIME PO Dextrose 0 .STK-MED ONE BUCCAL (DC) Acetaminophen 500 MG Q4H PRN PRN PO Al Hydrox/Mg Hydrox/Simethicone 30 ML Q4H PRN PRN PO Benzocaine 1 APPLIC DAILY PRN PRN TOPICAL (CKD) Benzocaine/Menthol 1 LOZENGE ASDIR PRN MM Diphenhydramine HCl 25 MG Q6H PRN PRN PO Diphtheria/Pertussis/Tetanus Vacc 0.5 ML BEFORE DISCHG IM Docusate Sodium 100 MG BID PRN PRN PO Guaifenesin/Dextromethorphan 10 ML Q4H PRN PRN PO Hydrocodone Bitart/Acetaminophen 1 TAB Q4H PRN PRN PO Hydrocodone Bitart/Acetaminophen 1 TAB Q6H PRN PRN PO Hydrocortisone/Pramoxine 1 GM ASDIR PRN TOPICAL (CKD) Ibuprofen 600 MG Q6H PRN PRN PO Lactated Ringer's 1,000 ML ASDIR IV Magnesium Hydroxide 30 ML BID PRN PRN PO Measles/Mumps/Rubella Vaccine Live 1 VIAL BEFORE DISCHG PRN SUBQ Methylergonovine Maleate 0.2 MG ASDIR PRN IM Ondansetron HCl 4 MG Q6H PRN PRN IV Ondansetron HCl 4 MG Q8H PRN PRN PO Oxytocin 500 ML ASDIR IV (DC) Polyethylene Glycol 17 GM DAILY PRN PRN PO Promethazine HCl 12.5 MG Q4H PRN PRN IM Simethicone 80 MG PC HS PRN PRN PO Tranexamic Acid 1,000 MG ASDIR PRN IV (CKD) Sodium Chloride 90 MLWitch Lindy/Glycerin 1 APPLIC ASDIR PRN TOPICAL Fentanyl Citrate 0 .STK-MED ONE .ROUTE (DC) Meperidine HCl 25 MG ONCE ONE IV (DC) Butorphanol Tartrate 1 MG Q4H PRN PRN IV (DC) Penicillin G Potassium/Dextrose 50 ML Q4H IV (DC) Oxytocin 500 ML TITRATE IV (DC) Ephedrine Sulfate 10 MG ASDIR PRN IV (DC) Fentanyl Citrate 100 MCG ASDIR EPIDURAL (DC) Fentanyl/Bupivacaine HCl 150 ML ASDIR EPIDURAL (DC) Lactated Ringer's 250 ML ASDIR IV (DC) Ondansetron HCl 4 MG Q6H PRN PRN IV (DC) Physical ExamNeuro: Exam: alert, oriented j2Zlbtive: soft, no abnormal tendernessUterus: firm, involution appropriateLochia: normalLacerations: Perineal laceration(s): None High vaginal laceration: noVulva/perineum: normal ResultFindings/data:Laboratory Tests: 01/27 0633 Hematology Hgb (10.1 - 13.8 g/dL) 11.5 Hct (32.5 - 41.8 %) 36.0 Results: labs reviewed, vital signs stable Diagnosis, Assessment Plan Diagnosis, Assessment PlanAssessment: nml progress, breast feeding w/o diffPlan: routine care, circumcision todayPlan discussed with: patient, spouse/partner at 1038 [facility] #:[id number] OF REPORT PRProgress Kyny2262-44-34R57:26:00F.ETTE23983135-6300NZEuzyz able for patient uwvhNTTGIBZYNCMYLO0675-60-84J07:38:56 [facility] 2021-01-26 17:01:00 RNjhhejdtbq24394624e +PZcM4Poitzy6T1jwJqEiym5jkM2P 2My1mfW8ksq5R2LgB4AYXmnSJfaLkJFbZ31724-69-57P56:0 1:00 [facility] ([facility])OB Delivery NoteREPORT#:[id number] REPORT STATUS: SignedDATE:01/26/21 TIME: 170 PATIENT: ARA OROURKE UNIT #: [id number]#: [id number] [facility] AGE: 30 SEX: F ATTEND: Marques Hughes [facility] AUTHOR: Jackie Declid MD * ALL edits or amendments must be made on the electronic/computer document * OB Delivery Pre-deliveryNewborn evaluation at delivery: NRP certified personnelAdmission EGA: Weeks: 40 Days: 6Admission indication:PIH, postdates Baby A InformationBaby A information Delivery date: 01/26/21 Delivery time: 1610 status: live born Wt of baby (lbs/oz): 01/27 Gender: male 1 minute: 8 5 minutes: 9 Presentation: vertex Anomalies:None Vaginal DeliveryVaginal delivery: Labor: induced Medications/Devices used: oxytocin, cytotec, mechanical dilator Vaginal delivery: spontaneous Amniotic fluid: clear Anesthesia type: epidural anesthesia Episiotomy: none Laceration repair: not required Placenta: spontaneous Post delivery meds used: oxytocin Count: correct Vaginal packing: No Mother's condition: mother stable Infant's condition: infant stable in roomLacerations: Perineal laceration(s): None High vaginal laceration: no Blood Loss/DetailsBlood loss at delivery: <1000 mlEBL at delivery (ml's): 200 at 1703 RPT #:[id number] OF REPORT OBObstetric kheq5064-28-59O81:01:00F.LTQX26042560-1504GSEaspz able for patient coqeADHPWNNPPBYFOW4090-17-51N80:03:47 [facility] 2021-01-26 07:09:00 UFcguuaupbg79362273K qtAPAfrC0SSqrqqVm0Pd0jMlLjRkj nAIJ63C/ANpuTIobMgGnJ/o9dKcP8LCxMI0905-80-21I60:0 9:00 [facility] ([facility])Clinical NoteREPORT#:[id number] REPORT STATUS: SignedDATE:01/26/21 TIME: 708 PATIENT: ARA OROURKE UNIT #: [id number]#: [id number] [facility] [birth year] AGE: 30 SEX: F ATTEND: Marques Hughes [facility] AUTHOR: Marques Hughes MD * ALL edits or amendments must be made on the electronic/computer document * Clinical NoteNote:feeling more ctx.declines epidural at this time.s/p 2nd cytotec at 0530.FHT 150s, Cat I.toco q2-3. at 0710 RPT #:[id number] OF REPORT CLClinical myrm0733-94-78O03:09:00F.CJDU43467917-9485GRYuyci able for patient xyayYOQXFXZPGXYXFC1198-97-27L20:11:15 [facility] 2021-01-25 13:35:00 VAtkzjqtboz94184442L zw5397J99Y1BTYsUjMu24CV48hDhc PePEVZaJTj0g3gQI6KbeRLxvz6wNyfDOim2814-59-78O64:3 5:00 [facility] ([facility])Clinical NoteREPORT#:[id number] REPORT STATUS: SignedDATE:01/25/21 TIME: 1334 PATIENT: ARA OROURKE UNIT #: [id number]#: [id number] [facility] [birth year] AGE: 30 SEX: F ATTEND: Marques Hughes AUTHOR: Sergey Tavarez MD * ALL edits or amendments must be made on the electronic/computer document * Clinical NoteNote:24 hours since insertion of DilapanContractions q4-5 minsCat 1 stripDilapan X 5 removed without difficultyCx 07/15/soft/post Vtx -3 at 1337 RPT #:[id number] OF REPORT CLClinical vexl2151-91-04V55:35:00F.BDSX25869942-5120MHOhgqa able for patient xrhuQTROZZPKSWSHQI5913-32-21B79:37:59 [facility] 2021-01-25 08:05:00 XAkilszzbwk57167415M Z/tbDq6uac7zFWGhj/iP65UJyBezV UAc182hIasLnvOClrWukwEqMoJfP75XGIO2492-04-15M02:0 5:00 [facility] ([facility])Clinical NoteREPORT#:[id number] REPORT STATUS: SignedDATE:01/25/21 TIME: 804 PATIENT: ARA OROURKE UNIT #: [id number]#: [id number] [facility] [birth year] AGE: 30 SEX: F ATTEND: Marques Hughes AUTHOR: Marques Hughes MD * ALL edits or amendments must be made on the electronic/computer document * Clinical NoteNote:dilapan placed 1300 yesterday, still in place.pt reports feeling some ctx.plan pit induction when nursing available. at 0806 RPT #:[id number] OF REPORT CLClinical bpdb0659-64-02O20:05:00F.GMVP26277752-6134YCNddtc able for patient ktwtASVHHOQPFNVYPO5765-14-58X13:06:41 [facility] 2021-01-24 14:07:00 QBzatnoglot13043189U DIwhxHUttVZxOM5P3FFfBYEDFzxEV cyXInOZ2iSsQ6nevDRETS2OsTPAVWCyHDT1353-12-90H98:0 7:00 [facility] ([facility])Clinical NoteREPORT#:[id number] REPORT STATUS: SignedDATE:01/24/21 TIME: 1407 PATIENT: ARA OROURKE UNIT #: [id number]#: [id number] ROOM/BED: [facility]-ADOB: [birth year] AGE: 30 SEX: F ATTEND: Marques Hughes [facility] AUTHOR: Debby Vera MD * ALL edits or amendments must be made on the electronic/computer document * Clinical NoteNote:Pt given pamphlet, then consented for Dilapan. Questions answeredFHTs cat 1SVE 07/15/-4/post/med/I ultrasound showed baby in vtx position sterile med graves speculum placed, unable to visualize cervix-requested longer lighted specDr Hughes arrived at that time and assumed care of pt/dsd at 1429 RPT #:[id number] OF REPORT CLClinical kggk9915-18-77F60:07:00F.RJGC05052795-4932ULAtsfx able for patient junfVFWQZRQGWYPHYC3232-90-56G98:29:20 [facility] 2021-01-24 13:14:00 KQfgfxikgkf12332304j pKViynfttth4dbhksNcS7JCivct1A 9oiwEDtdxxcOrc3Yi2wVbz4Mg9A/uO5fcr9731-29-56I80:1 4:00 [facility] / H PREPORT#:[id number] REPORT STATUS: SignedDATE:01/24/21 TIME: 1314 PATIENT: ARA OROURKE UNIT #: [id number]#: [id number] [facility] [birth year] AGE: 30 SEX: F ATTEND: Marques Hughes AUTHOR: Marques Hughes MD * ALL edits or amendments must be made on the electronic/computer document * OB HistoryChief complaint: scheduled inductionHPI: at 40.6 wks, GHTN, admitted for induction of labor. good FM. few ctx.no VB/LOF. history: : 3 Term: 2Current : Admission EGA (weeks) 40 Admission EGA (days) 6Conditions of : HTN-gestationalLabs: Blood type: A Rh: positive Rubella: immune Hepatitis B: negative HIV: negative STD: negative Syphilis: currently negative GBS: positiveProcedures: biophysical profile, ultrasound, genetic testing, non stress test Past HistoryAdditional Medical History:deniesPast Surgical History:Reports: Appendectomy, Hernia repair. Additional Surgical History:breast augmentationAlcohol Use Denies EtOH useDrug Use Denies recreational drugsSmoking status: Smoking status for patients 13 years old or older: Never SmokerMedications:Home Medications:PNV/FE FUM/FA ( MULTIVITAMIN) 1 TAB PO DAILY Allergies:Coded Allergies:latex (Intermediate, rash 01/24/21) Objective GeneralVS:PATIENT WEIGHT: Weight (lb): Weight (oz): Weight (kg): Physical ExamHEENT: normocephalic w/o injuryNeuro: Exam: alert, oriented x1Zzsvplm: gravid, soft, no abnormal tendernessUterine activity: Monitor: toco Frequency (description): rarePelvic exam: Pelvis clinically adequate: yes, inlet appears appropriate, pubic bone configappropr, no midpelvic contraction Vulvar lesions: none, no evidence herpetic les, no evidence of other STD Vagina: normal, non-septated, w/o apparent lesions Exam: soft, non-tender, approp size for gest ageCervical/ exam: Dilatation (cm): 1 Effacement (%): 30 Est wt (gms): 3800 Suspected macrosomia: No Suspected > 5000 grams: No station: - 3 presentation: cephalicMembranes: Membranes: IntactBaby A: Baby A baseline: 140 bpm Baby A variability: moderate 6-25 bpm Baby A accelerations: 15 X 15 Baby A decelerations: none Baby A FHR category: category 1 ResultFindings/Data:Laboratory Tests: 01/24 01/24 1120 1045 Hematology WBC (6.5 - 12.3 K/mm3) 13.4 H RBC (3.51 - 4.69 M/mm3) 4.05 Hgb (10.1 - 13.8 g/dL) 12.1 Hct (32.5 - 41.8 %) 37.2 MCV (84.6 - 96.6 fL) 91.9 MCH (27.3 - 33.9 pg) 29.9 MCHC (32.0 - 34.2 gm/dL) 32.5 RDW (12.2 - 16.3 %) 13.6 Plt Count (134 - 363 K/mm3) 307 MPV (9.2 - 12.7 fL) 10.7 Neut % (Auto) (57.9 - 77.3 %) 79.3 H Lymph % (Auto) (14.5 - 29.7 %) 11.5 L Hardin % (Auto) (3.6 - 10.2 %) 6.6 Eos % (Auto) (0.0 - 3.0 %) 1.2 Baso % (Auto) (0.1 - 0.9 %) 0.4 Neut # (Auto) (K/mm3) 10.6 Lymph # (Auto) (K/mm3) 1.5 Hardin # (Auto) (K/mm3) 0.9 Eos # (Auto) (K/mm3) 0.16 Baso # (Auto) (K/mm3) 0.1 Serology Treponema pallidum Ab (NONREACTIVE) NONREACTIVE Hep Bs Antigen (NONREACTIVE) NONREACTIVE HIV 1 2 Antibody (NONREACTIVE) NONREACTIVE SARS-CoV-2 Ag (Rapid) (NEGATIVE) NEGATIVE Diagnosis, Assessment Plan Diagnosis, Assessment PlanFree Text A P:40.6 wks, GHTN without severe features.Usage of Dilapan for cervical ripening reviewed with pt.Pt positioned in dorsal lithotomy, speculum placed in vagina to visualize cervix. cervix prepped with betadine. Dilapan moisened with sterile saline, then placed to cervix x5 until hub at external os. Speculum removed, sponge counts correct.Pt manuel procedure well.Plan to leave Dilapan 12-24 hours, then pitocin induction. at 1319 RPT #:[id number] OF REPORT HPHistory and physical cotkholdhvw4543-06-28M80:14:00F.HVRC34607078-8780 AVAvailable for patient ketgPKNLYRVQMIQOBE4063-61-46T88:20:06 [facility] 2021-[facility] 20:50:00 IRacjscarhu43475233S hm3/sx5rdKqMfEnnyqGbdpu3LruKL 1tpnwh6q7Osh2mj/Vm1vyqBftu8X43B8SP1894-76-45Q42:5 0:00 [facility])Clinical NoteREPORT#:[id number] REPORT STATUS: SignedDATE:01/19/21 TIME: 2049 PATIENT: ARA OROURKE UNIT #: [id number]#: [id number] ROOM/BED:: [birth year] AGE: 30 SEX: F ATTEND: Marques Hughes [facility] AUTHOR: Marques Hughes MD * ALL edits or amendments must be made on the electronic/computer document * Clinical NoteNote:Pt seen in office today for Ob check. 40+ wks with GHTN, has been awaiting induction at home. Sent from office to MAC for elevated BP 150s/90s, LAMB and dizziness. Labs reviewed, wnl.BPs remain extremely labile. FHT 130s, periods of good BTBV and accels and periods of minimal variability with no accels. toco q3-4 min.cvx 07/15/-2 in office. confirmed cephalic on sono.will cont monitoring for now at 2114 RPT #:[id number] OF REPORT CLClinical luvr0027-01-28N82:50:00F.WRHM98452212-0886YTSnpti able for patient gsclJNOHAGKKHSVRTR3906-77-50Q54:15:17 [facility] 2021-01-04 09:52:00 UCmvjjlyidt88480233X V0j6gPzPZrY/PTnQ0qicA7IOrvfz7 Rkq9EXH/TBbJSZC264waGx4S4s9x3DXzOb3305-98-93H60:5 2:00 [facility])OB Antepartum Prog NoteREPORT#:[id number] REPORT STATUS: SignedDATE:01/04/21 TIME: 951 PATIENT: ARA OROURKE UNIT #: [id number]#: [id number] ROOM/BED: [facility]-ADOB: [birth year] AGE: 30 SEX: F ATTEND: Marques Hughes [facility] AUTHOR: Marques Hughes MD * ALL edits or amendments must be made on the electronic/computer document * Subjective SubjectiveAdmission EGA: Weeks: 37 Days: 0Patient reports: Comments:+fm, - lof, - vb, - ctx. no PIH symptoms.Reports episodes of contractions at night. Objective Nursing Documentation ReviewNursing data:The data set between the solid lines has been imported from nursing documentation. Any exceptions have been noted below under Provider comments. ROM date: ROM time: Labor onset date: Labor onset time: Provider comments on imported nursing data: [] VS:Last Documented: Result Date Time B/P Mean 72.0 01/04 733 Pulse Ox 98 01/04 733 B/P 106/52 01/04 733 Temp 98.4 01/04 733 Pulse 78 01/04 0733 Resp 17 01/04 733 Vital Signs Date Temp Pulse Resp B/P B/P Mean Pulse Ox FiO2 01/03-01/04 98.4 75-127 - 106-129/51-71 72.0-92.0 89-98 PATIENT WEIGHT: Weight (lb): 230Weight (oz): Weight (kg): 104.326 Membranes: IntactCervical/ exam: Dilatation (cm): 2 Effacement (%): 30 Est wt (gms): 3200 Suspected macrosomia: No Suspected > 5000 grams: No station: - 3 presentation: cephalic (confirmed on sono)Uterine activity: Monitor: toco Frequency (description): irregularHEENT: normocephalic w/o injuryNeuro: Exam: alert, oriented u4Uwkkelb: gravid, soft, no abnormal tendernessLower extremities: Edema: traceBaby A: Baby A baseline: 135 bpm Baby A variability: moderate 6-25 bpm Baby A accelerations: 15 X 15 Baby A decelerations: none Baby A FHR category: category 1 Baby A notes:ctx rare Diagnosis, Assessment Plan Diagnosis, Assessment PlanAssessment: 38 wks, BPs very labile but nonsevere. awaiting induction on L D. at 0953 RPT #:[id number] OF REPORT PRProgress Gkze3786-64-36F68:52:00F.COUF73088588-5086ZQQegmb able for patient llbpTJKNDPNZVDNOSW4132-68-14Z04:53:54 [facility] 2021-01-04 09:52:00 SHhuuguigat099215821 8kdQeXHXzhxdtYTWMZ4XnuKhRMQ2r yb9cvHJ/s8/cfodYfHcdT1HwGGaZFaeAtS6031-63-25J55:5 2:00 [facility] ([facility])OB Antepartum Prog NoteREPORT#:[id number] REPORT STATUS: SignedDATE:01/04/21 TIME: 951 PATIENT: ARA OROURKE UNIT #: [id number]#: [id number] [address] AGE: 30 SEX: F ATTEND: Marques Hughes MDADM AUTHOR: Marques Hughes MD * ALL edits or amendments must be made on the electronic/computer document * See AddendumSubjective SubjectiveAdmission EGA: Weeks: 37 Days: 0Patient reports: Comments:+fm, - lof, - vb, - ctx. no PIH symptoms.Reports episodes of contractions at night. Objective Nursing Documentation ReviewNursing data:The data set between the solid lines has been imported from nursing documentation. Any exceptions have been noted below under Provider comments. ROM date: ROM time: Labor onset date: Labor onset time: Provider comments on imported nursing data: [] VS:Last Documented: Result Date Time B/P Mean 72.0 01/04 733 Pulse Ox 98 01/04 733 B/P 106/52 01/04 733 Temp 98.4 01/04 733 Pulse 78 01/04 733 Resp 17 01/04 733 Vital Signs Date Temp Pulse Resp B/P B/P Mean Pulse Ox FiO2 01/03-01/04 98.4 75-127 - 106-129/51-71 72.0-92.0 89-98 PATIENT WEIGHT: Weight (lb): 230Weight (oz): Weight (kg): 104.326 Membranes: IntactCervical/ exam: Dilatation (cm): 2 Effacement (%): 30 Est wt (gms): 3200 Suspected macrosomia: No Suspected > 5000 grams: No station: - 3 presentation: cephalic (confirmed on sono)Uterine activity: Monitor: toco Frequency (description): irregularHEENT: normocephalic w/o injuryNeuro: Exam: alert, oriented p5Dvqdtjv: gravid, soft, no abnormal tendernessLower extremities: Edema: traceBaby A: Baby A baseline: 135 bpm Baby A variability: moderate 6-25 bpm Baby A accelerations: 15 X 15 Baby A decelerations: none Baby A FHR category: category 1 Baby A notes:ctx rare Diagnosis, Assessment Plan Diagnosis, Assessment PlanAssessment: 38 wks, BPs very labile but nonsevere. awaiting induction on L D. at 0953 Addendum 1: 01/04/21 1000 by Marques Hughes MD Options d/w pt and , at this point prefer to be d/c'ed home and await induction from there. Warnings for PIH sx, ctx/LOF d/w pt. f/u in office Mon if not delivered by that time. at 1001 RPT #:[id number] OF REPORT PRProgress Nmbs0591-26-57F18:52:00F.FESG58781528-5969AGCfajn able for patient avirISMJUQJKCKKIGV0392-76-08V14:01:25 [facility] 2021-01-03 12:19:00 ENcmfoiwmlp392374277 ToM7a3pS0s0FlMqm9Qnn+vxATuKTO L6yrdolzwxhlqknE6ALGd+nb5hyjWwdldV6308-63-63H63:1 9:00 [facility] ([facility])OB Antepartum Prog NoteREPORT#:[id number] REPORT STATUS: SignedDATE:01/03/21 TIME: 1219 PATIENT: ARA OROURKE UNIT #: [id number]#: [id number] [address] [birth year] AGE: 30 SEX: F ATTEND: Marques Hughes [facility] AUTHOR: Marques Hughes MD * ALL edits or amendments must be made on the electronic/computer document * Subjective SubjectiveAdmission EGA: Weeks: 37 Days: 0Patient reports: Comments:+fm, - lof, - vb, - ctx. no PIH symptoms.Reports episodes of contractions at night. Objective Nursing Documentation ReviewNursing data:The data set between the solid lines has been imported from nursing documentation. Any exceptions have been noted below under Provider comments. ROM date: ROM time: Labor onset date: Labor onset time: Provider comments on imported nursing data: [] VS:Last Documented: Result Date Time Pulse 105 01/03 1101 Pulse Ox 97 01/03 1100 B/P Mean 92.0 01/03 1051 B/P 125/71 01/03 1051 Temp 98.4 01/03 1051 Resp 22 01/03 1051 Vital Signs Date Temp Pulse Resp B/P B/P Mean Pulse Ox FiO2 01/02-01/03 98.4 81-127 - 100-134/50-73 71.0-95.0 97-100 PATIENT WEIGHT: Weight (lb): 230Weight (oz): Weight (kg): 104.326 Membranes: IntactCervical/ exam: Dilatation (cm): 2 Effacement (%): 30 Est wt (gms): 3200 Suspected macrosomia: No Suspected > 5000 grams: No station: - 3 presentation: cephalic (confirmed on sono)Uterine activity: Monitor: toco Frequency (description): irregularHEENT: normocephalic w/o injuryNeuro: Exam: alert, oriented e8Kirqkrg: gravid, soft, no abnormal tendernessLower extremities: Edema: traceBaby A: Baby A baseline: 150 bpm Baby A variability: moderate 6-25 bpm Baby A accelerations: 15 X 15 Baby A decelerations: none Baby A FHR category: category 1 Baby A notes:ctx rareFindings/data:Laboratory Tests: 01/03 0531 Chemistry Sodium (135 - 145 mEq/L) 140 Potassium (3.5 - 5.0 mEq/L) 4.0 Chloride (100 - 115 mEq/L) 107 Carbon Dioxide (22 - 31 mEq/L) 24 Anion Gap (10 - 20) 13.20 BUN (7 - 18 mg/dL) 7 Creatinine (0.5 - 1.0 mg/dL) 0.6 Glomerular Filtr Rate (>60 ml/min) 117 Glucose (65 - 110 mg/dL) 93 Calcium (8.4 - 10.2 mg/dL) 7.8 L Total Bilirubin (0.2 - 1.0 mg/dL) 0.2 AST (15 - 37 units/L) 10 L ALT (12 - 78 units/L) 12 Total Alk Phosphatase (46 - 116 units/L) 61 Total Protein (6.3 - 8.2 gm/dL) 6.0 L Albumin (3.4 - 4.8 gm/dL) 2.4 L Hematology WBC (6.5 - 12.3 K/mm3) 12.8 H RBC (3.51 - 4.69 M/mm3) 3.51 Hgb (10.1 - 13.8 g/dL) 10.7 Hct (32.5 - 41.8 %) 33.6 MCV (84.6 - 96.6 fL) 95.7 MCH (27.3 - 33.9 pg) 30.5 MCHC (32.0 - 34.2 gm/dL) 31.8 L RDW (12.2 - 16.3 %) 13.7 Plt Count (134 - 363 K/mm3) 261 MPV (9.2 - 12.7 fL) 10.5 Neut % (Auto) (57.9 - 77.3 %) 74.0 Lymph % (Auto) (14.5 - 29.7 %) 15.8 Hardin % (Auto) (3.6 - 10.2 %) 6.1 Eos % (Auto) (0.0 - 3.0 %) 2.5 Baso % (Auto) (0.1 - 0.9 %) 0.3 Neut # (Auto) (K/mm3) 9.5 Lymph # (Auto) (K/mm3) 2.0 Hardin # (Auto) (K/mm3) 0.8 Eos # (Auto) (K/mm3) 0.32 Baso # (Auto) (K/mm3) 0.0 Diagnosis, Assessment Plan Diagnosis, Assessment PlanFree Text A P:37.6 wks, GHTN without severe features.awaiting induction. at 1221 RPT #:[id number] OF REPORT PRProgress [id number]:19:00F.[id number] able for patient rtcoCMIEXVUMXAWOQA4196-18-79L64:21:26 [facility] 2021-01-02 11:50:00 [id number] oT9tkUYdxbr460fnyTTmDoKdXi/2n fvrsURYdhIJXkSAVUqqziGRtkIFNlVhhPk6670-90-74W49:5 0:00 [facility] ([facility])OB Antepartum Prog NoteREPORT#:[id number] REPORT STATUS: SignedDATE:01/02/21 TIME: 1150 PATIENT: ARA OROURKE UNIT #: [id number]#: [id number] [address] [birth year] AGE: 30 SEX: F ATTEND: Marques Hughes MDADM AUTHOR: Marques Hughes MD * ALL edits or amendments must be made on the electronic/computer document * Subjective SubjectiveAdmission EGA: Weeks: 37 Days: 0Current EGA: Current EGA(wks): 37 Current EGA(days): 5Patient reports: Comments:feeling more ctx, no VB/LOF. no LAMB/PIH sx.good FM Objective Nursing Documentation ReviewNursing data:The data set between the solid lines has been imported from nursing documentation. Any exceptions have been noted below under Provider comments. ROM date: ROM time: Labor onset date: Labor onset time: Provider comments on imported nursing data: [] VS:Last Documented: Result Date Time B/P Mean 89.0 01/02 0824 B/P 123/72 01/02 0824 Pulse 108 01/02 0824 Resp 18 01/02 0344 Pulse Ox 97 01/01 1548 Temp 98.6 01/01 0958 Vital Signs Date Temp Pulse Resp B/P B/P Mean Pulse Ox FiO2 01/01-01/02 76-108 18 92-134/50-77 67.0-94.0 97 PATIENT WEIGHT: Weight (lb): 230Weight (oz): Weight (kg): 104.326 Membranes: IntactCervical/ exam: Dilatation (cm): 2 Effacement (%): 30 Est wt (gms): 3200 Suspected macrosomia: No Suspected > 5000 grams: No station: - 3 presentation: cephalic (confirmed on sono)Uterine activity: Monitor: toco Frequency (description): irregularHEENT: normocephalic w/o injuryNeuro: Exam: alert, oriented x8Dbgwvdi: gravid, soft, no abnormal tendernessLower extremities: Edema: traceBaby A: Baby A baseline: 130 bpm Baby A variability: moderate 6-25 bpm Baby A accelerations: 15 X 15 Baby A decelerations: none Baby A FHR category: category 1 Baby A notes:ctx rare Diagnosis, Assessment Plan Diagnosis, Assessment PlanAssessment: 375 wks, GHTN. BPs stable and wnl on bederst. repeat labs tomorrow.no signs of severe disease at this time. reassuring status. awaiting induction for GHTN at 1152 RPT #:[id number] OF REPORT PRProgress Blok1992-80-11Y92:50:00F.QJXW88547691-5751JFUsuqn able for patient zdhcSEJJXCWERQCGBU5337-51-91Q76:52:30 [facility] 2021-01-01 07:34:00 PQrbmohpmet53866144x W8P1toM9DsJeso0O24CjP1dhvyWEp vlFkqAmgaTR2LbleeT4OY7zRkQS3nZGB5w0866-13-22E18:3 4:00 [facility] ([facility])OB Antepartum Prog NoteREPORT#:[id number] REPORT STATUS: SignedDATE:01/01/21 TIME: 733 PATIENT: ARA OROURKE UNIT #: [id number]#: [id number] [address] AGE: 30 SEX: F ATTEND: Marques Hughes [facility] AUTHOR: Marques Hughes MD * ALL edits or amendments must be made on the electronic/computer document * Subjective SubjectiveAdmission EGA: Weeks: 37 Days: 0Patient reports: Comments:+fm, - lof, - vb, - ctx. no PIH symptoms.Reports episodes of contractions at night. Objective Nursing Documentation ReviewNursing data:The data set between the solid lines has been imported from nursing documentation. Any exceptions have been noted below under Provider comments. ROM date: ROM time: Labor onset date: Labor onset time: Provider comments on imported nursing data: [] VS:Last Documented: Result Date Time B/P Mean 72.0 01/01 0412 B/P 101/51 01/01 0412 Pulse 89 01/01 0412 Pulse Ox 100 12/31 1554 Temp 98.4 12/31 1219 Resp 17 12/31 1219 Vital Signs Date Temp Pulse Resp B/P B/P Mean Pulse Ox FiO2 12/31-01/01 98.2-98.4 76-99 17 101-126/51-70 72.0-90.0 98-100 PATIENT WEIGHT: Weight (lb): 230Weight (oz): Weight (kg): 104.326 Membranes: IntactCervical/ exam: Dilatation (cm): 2 Effacement (%): 30 Est wt (gms): 3200 Suspected macrosomia: No Suspected > 5000 grams: No station: - 3 presentation: cephalic (confirmed on sono)Uterine activity: Monitor: toco Frequency (description): rareHEENT: normocephalic w/o injuryNeuro: Exam: alert, oriented q1Mzlnxif: gravid, soft, no abnormal tendernessLower extremities: Edema: traceBaby A: Baby A baseline: 130 bpm Baby A variability: moderate 6-25 bpm Baby A accelerations: 15 X 15 Baby A decelerations: none Baby A FHR category: category 1 Baby A notes:ctx rare Diagnosis, Assessment Plan Diagnosis, Assessment PlanFree Text A P:37.4 wks, admitted for severe GHTN, awaiting induction.BPs stable with bedrest. 24 urine protein below preeclamptic range. plan pit induction when L D capable. at 0736 RPT #:[id number] OF REPORT PRProgress Bbgd3734-90-67H09:34:00F.XGFY62392280-1078GCNuttl able for patient bjmyZMAPGOPCHGPFND3715-92-43Y44:36:35 [facility] 2020-12-31 15:35:00 ZYzlvbtyves28454733c blfQChCL9/i9+Rosemary/hany VxvTAK8CSs78sb5IlnsPXVKIL8kZEWyQUW7195-64-79K89:3 5:00 [facility] ([facility])OB Antepartum Prog NoteREPORT#:[id number] REPORT STATUS: SignedDATE:12/31/20 TIME: 153 PATIENT: ARA OROURKE UNIT #: [id number]#: [id number] [address] [birth year] AGE: 30 SEX: F ATTEND: Marques Hughes [facility] AUTHOR: Crystal Wills MD * ALL edits or amendments must be made on the electronic/computer document * Subjective SubjectiveAdmission EGA: Weeks: 37 Days: 0Patient reports: Comments:+fm, - lof, - vb, - ctx. no PIH symptoms.Reports episodes of contractions at night that resolve. ObjectiveVS:Last Documented: Result Date Time B/P Mean 90.0 12/31 1219 Pulse Ox 100 12/31 1219 B/P 123/70 12/31 1219 Pulse 83 12/31 1219 Resp 16 12/31 0530 Vital Signs Date Temp Pulse Resp B/P B/P Mean Pulse Ox FiO2 12/30-12/31 75-99 16 99-126/49-70 70.0-90.0 100 PATIENT WEIGHT: Weight (lb): 230Weight (oz): Weight (kg): 104.326 Membranes: IntactCervical/ exam: Dilatation (cm): 2 Effacement (%): 30 Est wt (gms): 3200 Suspected macrosomia: No Suspected > 5000 grams: No station: - 3 presentation: cephalic (confirmed on sono)Uterine activity: Monitor: toco Frequency (description): rareHEENT: normocephalic w/o injuryNeuro: Exam: alert, oriented n8Gdmezmn: gravid, soft, no abnormal tendernessLower extremities: Edema: traceBaby A: Baby A baseline: 130 bpm Baby A variability: moderate 6-25 bpm Baby A accelerations: 15 X 15 Baby A decelerations: none Baby A FHR category: category 1 Baby A notes:ctx rareFindings/data:Laboratory Tests: 12/30 1913 Urines U Random Total Protein (mg/dL) 11.7 Urine Total Volume (ML) 2200 Ur Total Protein 24 Hr (20 - 150 mg/24HR) 257 *H Diagnosis, Assessment Plan Diagnosis, Assessment PlanFree Text A P:30 yo P2002 at 37w3d adm at 37w0d due to initial concern of severe preE now withimprovement - gHTN vs preE w/o SF. # adm initially due to concern of severe preE now with improvement - gHTN vs preE w/o SF.- Labs normal- 24 urine: 257mg- Mag dc'd after admission as all BP normal. # intermittent ctx- last night /high # dispo- on medical induction list and awaiting room/nurse on LND.- patient does not want to dc home and await induction at 1549 RPT #:[id number] OF REPORT PRProgress Pxkb0463-12-50E95:35:00F.MQFH06767211-5434KPEmcvi able for patient zljoUREOOXUELLRMWE0517-03-15H22:49:42 [facility] 2020-12-30 13:28:00 FSnkpindafe25876205n pf+EkIsTfya4uvEqj6j5+CI+nGyjJ Ygph5ZtRTsTsihCopYmQPax7PlQmn7pNq76174-47-28Z75:2 8:00 [facility] ([facility])OB Antepartum Prog NoteREPORT#:[id number] REPORT STATUS: SignedDATE:12/30/20 TIME: 1328 PATIENT: ARA OROURKE UNIT #: [id number]#: [id number] ROOM/BED: [facility]-ADOB: [birth year] AGE: 30 SEX: F ATTEND: Marques Hughes MDADM AUTHOR: Angela Cortez MD * ALL edits or amendments must be made on the electronic/computer document * Subjective SubjectiveAdmission EGA: Weeks: 37 Days: 0Patient reports: Comments:+fm, - lof, - vb, - ctx. no PIH symptoms. did have increased ctx last night. / and improved after 1 dose of morphine. Objective Nursing Documentation ReviewNursing data:The data set between the solid lines has been imported from nursing documentation. Any exceptions have been noted below under Provider comments. ROM date: ROM time: Labor onset date: Labor onset time: Provider comments on imported nursing data: [] VS:Last Documented: Result Date Time B/P Mean 85.0 12/30 1232 Pulse Ox 100 12/30 1232 B/P 127/59 12/30 1232 Pulse 80 12/30 1232 Resp 20 12/29 0342 Vital Signs Date Temp Pulse Resp B/P B/P Mean Pulse Ox FiO2 12/29-12/30 79-81 105-127/56-61 72.0-85.0 100 PATIENT WEIGHT: Weight (lb): 230Weight (oz): Weight (kg): 104.326 Membranes: IntactCervical/ exam: Dilatation (cm): 2 Effacement (%): 30 Est wt (gms): 3200 Suspected macrosomia: No Suspected > 5000 grams: No station: - 3 presentation: cephalic (confirmed on sono)Uterine activity: Monitor: toco Frequency (description): rareHEENT: normocephalic w/o injuryNeuro: Exam: alert, oriented h2Uewaatz: gravid, soft, no abnormal tendernessLower extremities: Edema: traceBaby A: Baby A baseline: 130 bpm Baby A variability: moderate 6-25 bpm Baby A accelerations: 15 X 15 Baby A decelerations: none Baby A FHR category: category 1 Baby A notes:ctx rareFindings/data:Laboratory Tests: 12/30 0630 Chemistry AST (15 - 37 units/L) 9 L ALT (12 - 78 units/L) 13 Hematology WBC (6.5 - 12.3 K/mm3) 13.3 H RBC (3.51 - 4.69 M/mm3) 3.43 L Hgb (10.1 - 13.8 g/dL) 10.4 Hct (32.5 - 41.8 %) 32.7 MCV (84.6 - 96.6 fL) 95.3 MCH (27.3 - 33.9 pg) 30.3 MCHC (32.0 - 34.2 gm/dL) 31.8 L RDW (12.2 - 16.3 %) 13.8 Plt Count (134 - 363 K/mm3) 279 MPV (9.2 - 12.7 fL) 10.5 Neut % (Auto) (57.9 - 77.3 %) 74.4 Lymph % (Auto) (14.5 - 29.7 %) 16.9 Hardin % (Auto) (3.6 - 10.2 %) 5.7 Eos % (Auto) (0.0 - 3.0 %) 1.7 Baso % (Auto) (0.1 - 0.9 %) 0.3 Neut # (Auto) (K/mm3) 9.9 Lymph # (Auto) (K/mm3) 2.2 Hardin # (Auto) (K/mm3) 0.8 Eos # (Auto) (K/mm3) 0.22 Baso # (Auto) (K/mm3) 0.0 Diagnosis, Assessment Plan Diagnosis, Assessment PlanFree Text A P:30 yo P2002 at 37w2d adm at 37w0d due to initial concern of severe preE now withimprovement - gHTN vs preE w/o SF. # adm initially due to concern of severe preE now with improvement - gHTN vs preE w/o SF.- Labs normal- Mag dc'd after admission as all BP normal. # intermittent ctx- last night /high # dispo- on medical induction list and awaiting room/nurse on LND.- patient does not want to dc home and await induction there today given ctx last night. at 1333 RPT #:[id number] OF REPORT PRProgress Xltc4068-17-10U99:28:00F.MOAW96950547-3909RRQkxjs able for patient ihwdGQTTEIMIGNQSED6891-96-27Z75:33:39 [facility] 2020-12-30 13:28:00 PPqeeonptvb02199947V af3EdzRjHpLYM7di40YBjiEdRXvsY pBEDMyQe6rFQQN1clUXLUz1eElkLaNi+KH7406-70-05B48:2 8:00 [facility])OB Antepartum Prog NoteREPORT#:[id number] REPORT STATUS: SignedDATE:12/30/20 TIME: 1328 PATIENT: ARA OROURKE UNIT #: [id number]#: [id number] ROOM/BED: [facility]-ADOB: [birth year] AGE: 30 SEX: F ATTEND: Marques Hughes [facility] AUTHOR: Angela Cortez MD * ALL edits or amendments must be made on the electronic/computer document * See AddendumSubjective SubjectiveAdmission EGA: Weeks: 37 Days: 0Patient reports: Comments:+fm, - lof, - vb, - ctx. no PIH symptoms. did have increased ctx last night. /high and improved after 1 dose of morphine. Objective Nursing Documentation ReviewNursing data:The data set between the solid lines has been imported from nursing documentation. Any exceptions have been noted below under Provider comments. ROM date: ROM time: Labor onset date: Labor onset time: Provider comments on imported nursing data: [] VS:Last Documented: Result Date Time B/P Mean 85.0 12/30 1232 Pulse Ox 100 12/30 1232 B/P 127/59 12/30 1232 Pulse 80 12/30 1232 Resp 20 12/29 0342 Vital Signs Date Temp Pulse Resp B/P B/P Mean Pulse Ox FiO2 /-12/30 79-81 105-127/56-61 72.0-85.0 100 PATIENT WEIGHT: Weight (lb): 230Weight (oz): Weight (kg): 104.326 Membranes: IntactCervical/ exam: Dilatation (cm): 2 Effacement (%): 30 Est wt (gms): 3200 Suspected macrosomia: No Suspected > 5000 grams: No station: - 3 presentation: cephalic (confirmed on sono)Uterine activity: Monitor: toco Frequency (description): rareHEENT: normocephalic w/o injuryNeuro: Exam: alert, oriented a1Hblidtu: gravid, soft, no abnormal tendernessLower extremities: Edema: traceBaby A: Baby A baseline: 130 bpm Baby A variability: moderate 6-25 bpm Baby A accelerations: 15 X 15 Baby A decelerations: none Baby A FHR category: category 1 Baby A notes:ctx rareFindings/data:Laboratory Tests: 12/30 0630 Chemistry AST (15 - 37 units/L) 9 L ALT (12 - 78 units/L) 13 Hematology WBC (6.5 - 12.3 K/mm3) 13.3 H RBC (3.51 - 4.69 M/mm3) 3.43 L Hgb (10.1 - 13.8 g/dL) 10.4 Hct (32.5 - 41.8 %) 32.7 MCV (84.6 - 96.6 fL) 95.3 MCH (27.3 - 33.9 pg) 30.3 MCHC (32.0 - 34.2 gm/dL) 31.8 L RDW (12.2 - 16.3 %) 13.8 Plt Count (134 - 363 K/mm3) 279 MPV (9.2 - 12.7 fL) 10.5 Neut % (Auto) (57.9 - 77.3 %) 74.4 Lymph % (Auto) (14.5 - 29.7 %) 16.9 Hardin % (Auto) (3.6 - 10.2 %) 5.7 Eos % (Auto) (0.0 - 3.0 %) 1.7 Baso % (Auto) (0.1 - 0.9 %) 0.3 Neut # (Auto) (K/mm3) 9.9 Lymph # (Auto) (K/mm3) 2.2 Hardin # (Auto) (K/mm3) 0.8 Eos # (Auto) (K/mm3) 0.22 Baso # (Auto) (K/mm3) 0.0 Diagnosis, Assessment Plan Diagnosis, Assessment PlanFree Text A P:30 yo P2002 at 37w2d adm at 37w0d due to initial concern of severe preE now withimprovement - gHTN vs preE w/o SF. # adm initially due to concern of severe preE now with improvement - gHTN vs preE w/o SF.- Labs normal- Mag dc'd after admission as all BP normal. # intermittent ctx- last night /high # dispo- on medical induction list and awaiting room/nurse on LND.- patient does not want to dc home and await induction there today given ctx last night. at 1333 Addendum 1: 12/30/20 1334 by Angela Cortez MD GBS pending in the office. at 1334 RPT #:[id number] OF REPORT PRProgress Fevg3347-98-79P63:28:00F.FMGY60216445-6198ASRmrbc able for patient hgugYNXJNVHHPQDFMF2319-62-26H34:34:19 [facility] 2020-12-30 13:28:00 UFesafcedpf52247386A UBRWNlaYxLmrOrK0f78mVtD6CzkSS NkzRzDMX5MFuN7PFBkJLl/MrYWwA4/eWyI4059-54-78W90:2 8:00 [facility] ([facility])OB Antepartum Prog NoteREPORT#:[id number] REPORT STATUS: SignedDATE:12/30/20 TIME: 1328 PATIENT: ARA OROURKE UNIT #: [id number]#: [id number] [address] [birth year] AGE: 30 SEX: F ATTEND: Marques Hughes [facility] AUTHOR: Angela Cortez MD * ALL edits or amendments must be made on the electronic/computer document * See AddendumSubjective SubjectiveAdmission EGA: Weeks: 37 Days: 0Patient reports: Comments:+fm, - lof, - vb, - ctx. no PIH symptoms. did have increased ctx last night. / and improved after 1 dose of morphine. Objective Nursing Documentation ReviewNursing data:The data set between the solid lines has been imported from nursing documentation. Any exceptions have been noted below under Provider comments. ROM date: ROM time: Labor onset date: Labor onset time: Provider comments on imported nursing data: [] VS:Last Documented: Result Date Time B/P Mean 85.0 12/30 1232 Pulse Ox 100 12/30 1232 B/P 127/59 12/30 1232 Pulse 80 12/30 1232 Resp 20 12/29 0342 Vital Signs Date Temp Pulse Resp B/P B/P Mean Pulse Ox FiO2 12/29-12/30 79-81 105-127/56-61 72.0-85.0 100 PATIENT WEIGHT: Weight (lb): 230Weight (oz): Weight (kg): 104.326 Membranes: IntactCervical/ exam: Dilatation (cm): 2 Effacement (%): 30 Est wt (gms): 3200 Suspected macrosomia: No Suspected > 5000 grams: No station: - 3 presentation: cephalic (confirmed on sono)Uterine activity: Monitor: toco Frequency (description): rareHEENT: normocephalic w/o injuryNeuro: Exam: alert, oriented p9Ysliehi: gravid, soft, no abnormal tendernessLower extremities: Edema: traceBaby A: Baby A baseline: 130 bpm Baby A variability: moderate 6-25 bpm Baby A accelerations: 15 X 15 Baby A decelerations: none Baby A FHR category: category 1 Baby A notes:ctx rareFindings/data:Laboratory Tests: 12/30 0630 Chemistry AST (15 - 37 units/L) 9 L ALT (12 - 78 units/L) 13 Hematology WBC (6.5 - 12.3 K/mm3) 13.3 H RBC (3.51 - 4.69 M/mm3) 3.43 L Hgb (10.1 - 13.8 g/dL) 10.4 Hct (32.5 - 41.8 %) 32.7 MCV (84.6 - 96.6 fL) 95.3 MCH (27.3 - 33.9 pg) 30.3 MCHC (32.0 - 34.2 gm/dL) 31.8 L RDW (12.2 - 16.3 %) 13.8 Plt Count (134 - 363 K/mm3) 279 MPV (9.2 - 12.7 fL) 10.5 Neut % (Auto) (57.9 - 77.3 %) 74.4 Lymph % (Auto) (14.5 - 29.7 %) 16.9 Hardin % (Auto) (3.6 - 10.2 %) 5.7 Eos % (Auto) (0.0 - 3.0 %) 1.7 Baso % (Auto) (0.1 - 0.9 %) 0.3 Neut # (Auto) (K/mm3) 9.9 Lymph # (Auto) (K/mm3) 2.2 Hardin # (Auto) (K/mm3) 0.8 Eos # (Auto) (K/mm3) 0.22 Baso # (Auto) (K/mm3) 0.0 Diagnosis, Assessment Plan Diagnosis, Assessment PlanFree Text A P:30 yo P2002 at 37w2d adm at 37w0d due to initial concern of severe preE now withimprovement - gHTN vs preE w/o SF. # adm initially due to concern of severe preE now with improvement - gHTN vs preE w/o SF.- Labs normal- Mag dc'd after admission as all BP normal. # intermittent ctx- last night /high # dispo- on medical induction list and awaiting room/nurse on LND.- patient does not want to dc home and await induction there today given ctx last night. at 1333 Addendum 1: 12/30/20 1334 by Angela Cortez MD GBS pending in the office. at 1334 Addendum 2: 12/30/202220 by Angela Cortez MD Called due to ctx felt by patient. Cat 1 tracing, ctx q3-5min. Went to check pt - cl/th/-4. rates 5/10 but looks comfortable. ordered tylenol/benadryl, monitor symptoms at 2221 RPT #:[id number] OF REPORT PRProgress Uokd6267-92-97W58:28:00F.ASBE34131131-3990HXVztzv able for patient cxhlQAOCFKKJQYPWTP6084-75-41I67:21:46 [facility] 2020-12-30 02:19:00 CVocksgbsru92461539p +zCznL4ZpUOs33QT0xrTvg9OG0Yi/ GSAGxZGsu+uH+2JXGoqxkx3HSwWAEBXATy4333-57-52R67:1 9:00 [facility] ([facility])Clinical NoteREPORT#:[id number] REPORT STATUS: SignedDATE:12/30/20 TIME: 218 PATIENT: ARA OROURKE UNIT #: [id number]#: [id number] ROOM/BED: [facility]-ADOB: [birth year] AGE: 30 SEX: F ATTEND: Marques Hughes [facility] AUTHOR: Crystal Wills MD * ALL edits or amendments must be made on the electronic/computer document * Clinical NoteNote:Patient complaining of contractions. Placed on monitor and noted to be levy q4-6minsFHT cat IShe was checked and noted to be unchanged at 07/10/. She received IV morphine and IVF. She was recheked in another two hours and was unchanged. Patient reports she is still having contractions, on toco it appears that they have spaced out. Reassurance was given to patient.Will remove from monitor now. at 0229 RPT #:[id number] OF REPORT CLClinical krnz9197-69-74J28:19:00F.DYYF07132771-4754YJBucgv able for patient fcpgDECKHCHUEUAVHZ0414-23-93W31:29:16 [facility] 2020-12-29 16:38:00 [id number] 2rSX9JbzebptjqeF9hlm3zYYizqgU /lS3BKEAW5MOPHB5nArO2qTYbxgAyk2c0110-38-20U23:3 8:00 [facility] ([facility])Clinical NoteREPORT#:[id number] REPORT STATUS: SignedDATE:12/29/20 TIME: 1638 PATIENT: ARA OROURKE UNIT #: [id number]#: [id number] ROOM/BED: [facility]-ADOB: [birth year] AGE: 30 SEX: F ATTEND: Marques Hughes [facility] AUTHOR: Marques Hughes MD * ALL edits or amendments must be made on the electronic/computer document * Clinical NoteNote:BPs stable and nonsevere off mag. NST reactive, Cat I.toco rare ctx.options d/w pt. wants to remain in house on bedrest as BPs have been elevated at home with symptoms. Will check 24 hr urine, Hep C viral load (reactive titer but neg VL during preg). repeat labs. pt on induction list for GHTN/preeclampsia. at 1641 RPT #:[id number] OF REPORT CLClinical uxzp5683-41-89Y04:38:00F.EWRG92837250-3925LMCdbyt able for patient symdUIUIJTBSXJTXTQ7065-55-22G65:42:15 [facility] 2020-12-29 07:46:00 EExiufpxmpo65632826G Z8YUFo1PaQ010Cb3J9LM1zVNYwOMH z8oYv2ihjL3FI8t1YQMSBFosMv2w1TdZ5U5782-08-61M11:4 6:00 [facility] ([facility])OB Antepartum Prog NoteREPORT#:[id number] REPORT STATUS: SignedDATE:12/29/20 TIME: 07 PATIENT: ARA OROURKE UNIT #: [id number]#: [id number] ROOM/BED: [facility]-ADOB: [birth year] AGE: 30 SEX: F ATTEND: Marques Hughes MDADM AUTHOR: Marques Hughes MD * ALL edits or amendments must be made on the electronic/computer document * Subjective SubjectiveAdmission EGA: Weeks: 37 Days: 0Patient reports: Comments:good FM. few ctx. no LAMB. no RUQ pain now. Objective Nursing Documentation ReviewNursing data:The data set between the solid lines has been imported from nursing documentation. Any exceptions have been noted below under Provider comments. ROM date: ROM time: Labor onset date: Labor onset time: Provider comments on imported nursing data: [] VS:Last Documented: Result Date Time B/P Mean 78.0 12/29 0342 Pulse Ox 100 12/29 0342 B/P 114/58 12/29 0342 Pulse 75 12/29 0342 Resp 20 12/29 0342 Vital Signs Date Temp Pulse Resp B/P B/P Mean Pulse Ox FiO2 12/28-12/29 75-102 15-20 114-120/58-73 78.0-90.0 94-100 PATIENT WEIGHT: Weight (lb): 230Weight (oz): Weight (kg): 104.326 Membranes: IntactCervical/ exam: Dilatation (cm): 0 - closed Effacement (%): 30 Est wt (gms): 3200 Suspected macrosomia: No Suspected > 5000 grams: No station: - 3 presentation: cephalic (confirmed on sono)Uterine activity: Monitor: toco Frequency (description): rareHEENT: normocephalic w/o injuryNeuro: Exam: alert, oriented b2Coeyvkl: gravid, soft, no abnormal tendernessBaby A: Baby A baseline: 145 bpm Baby A variability: moderate 6-25 bpm Baby A accelerations: 15 X 15 Baby A decelerations: none Baby A FHR category: category 1Findings/data:Laboratory Tests: 12/28 12/28 12/28 1517 1322 1255 Chemistry AST (15 - 37 units/L) 15 ALT (12 - 78 units/L) 15 Hematology WBC (6.5 - 12.3 K/mm3) 17.0 H RBC (3.51 - 4.69 M/mm3) 3.72 Hgb (10.1 - 13.8 g/dL) 11.4 Hct (32.5 - 41.8 %) 35.7 MCV (84.6 - 96.6 fL) 96.0 MCH (27.3 - 33.9 pg) 30.6 MCHC (32.0 - 34.2 gm/dL) 31.9 L RDW (12.2 - 16.3 %) 13.6 Plt Count (134 - 363 K/mm3) 313 MPV (9.2 - 12.7 fL) 11.0 Neut % (Auto) (57.9 - 77.3 %) 84.1 H Lymph % (Auto) (14.5 - 29.7 %) 9.8 L Hardin % (Auto) (3.6 - 10.2 %) 3.4 L Eos % (Auto) (0.0 - 3.0 %) 1.1 Baso % (Auto) (0.1 - 0.9 %) 0.4 Neut # (Auto) (K/mm3) 14.3 Lymph # (Auto) (K/mm3) 1.7 Hardin # (Auto) (K/mm3) 0.6 Eos # (Auto) (K/mm3) 0.19 Baso # (Auto) (K/mm3) 0.1 Serology Treponema pallidum Ab (NONREACTIVE) NONREACTIVE Hep Bs Antigen (NONREACTIVE) NONREACTIVE Hepatitis C Antibody (NONREACTIVE) EQUIVOCAL *A Hep C Ab Signal/Cutoff (<0.80) 4.96 H Urines Ur Random Creatinine (mg/dL) 88.0 U Random Total Protein (mg/dL) 17.7 Protein/Creatinin Ratio (<200 mg/gcrea) 201.1 H Diagnosis, Assessment Plan Diagnosis, Assessment PlanFree Text A P:37.1 wks, elevated BP in office, sent to [facility] for monitoring awaiting induction, started on magnesium.contractions resolved on mag.BPs all wnl, labs wnl.no signs of severe disease at this point. will d/c mag and continue to monitor. if stable may be able to go home on bedrest and await induction there. at 0749 RPT #:[id number] OF REPORT PRProgress Lyvf0199-41-18F74:46:00F.DBRJ25358101-6281JWXnumc able for patient arfeYQSJVGSXPSCPKJ6658-18-84P31:49:31 [facility] 2020-12-28 15:21:00 [id number] EVgu1AcvAt8E4rX0yq283LTWqmKQ3 5Tw71HhK90kKVqal1qfX+BOo3A+H2Z6RLG5391-62-84O38:2 1:00 [facility] ([facility])OB Admission / H PREPORT#:[id number] REPORT STATUS: SignedDATE:12/28/20 TIME: 152 PATIENT: ARA OROURKE UNIT #: [id number]#: [id number] ROOM/BED: [facility]-ADOB: [birth year] AGE: 30 SEX: F ATTEND: Marques Hughes [facility] AUTHOR: Marques Hughes MD * ALL edits or amendments must be made on the electronic/computer document * OB HistoryChief complaint: elevated blood pressure, headache, scotomaHPI:pt seen in office today for elevated BP, LAMB, dizziness, RUQ pain, swelling.reports good FM.no VB/LOF/ctx. history: : 3 Term: 2Current : Best EDC: 01/18/21 Admission EGA (weeks) 37 Admission EGA (days) 0Conditions of : HTN-gestationalLabs: Blood type: A Rh: positive Rubella: immune Hepatitis B: negative HIV: negative STD: negative Syphilis: currently negative GBS: unknownProcedures: ultrasound, genetic testing, non stress test Past HistoryAdditional Medical History:deniesPast Surgical History:Reports: Appendectomy, Hernia repair, Breast biopsy/procedure (augmentation). Alcohol Use Denies EtOH useDrug Use Denies recreational drugsSmoking status: Smoking status for patients 13 years old or older: Never SmokerMedications:Home Medications:PNV WITH FE FUMARATE/FA () 1 TAB PO DAILY IRON 18 MG PO DAILY Allergies:Coded Allergies:No Known Allergies (12/26/20) Objective GeneralVS:Last Documented: Result Date Time B/P Mean 84.0 12/28 1408 B/P 118/65 12/28 1408 Pulse 83 12/28 1408 Pulse Ox 95 12/28 1406 Resp 15 12/28 1357 Vital Signs Date Temp Pulse Resp B/P B/P Mean Pulse Ox FiO2 12/28 83-102 15 115-120/65-73 84.0-90.0 94-99 PATIENT WEIGHT: Weight (lb): 230Weight (oz): Weight (kg): 104.326 Physical ExamHEENT: normocephalic w/o injuryNeuro: Exam: alert, oriented [id number]: gravid, soft, no abnormal tendernessUterine activity: Monitor: toco Frequency (description): irregularPelvic exam: Pelvis clinically adequate: yes, inlet appears appropriate, pubic bone configappropr, no midpelvic contraction Vulvar lesions: none, no evidence herpetic les, no evidence of other STD Vagina: normal, non-septated, w/o apparent lesionsCervical/ exam: Dilatation (cm): 0 - closed Effacement (%): 30 Est wt (gms): 3200 Suspected macrosomia: No Suspected > 5000 grams: No station: - 3 presentation: cephalic (confirmed on sono)Membranes: Membranes: IntactBaby A: Baby A baseline: 145 bpm Baby A variability: moderate 6-25 bpm Baby A accelerations: 15 X 15 Baby A decelerations: none Baby A FHR category: category 1 ResultFindings/Data:Laboratory Tests: 12/28 1322 Urines Ur Random Creatinine (mg/dL) 88.0 U Random Total Protein (mg/dL) 17.7 Protein/Creatinin Ratio (<200 mg/gcrea) 201.1 H Diagnosis, Assessment Plan Diagnosis, Assessment PlanFree Text A P:37.0 wks, severe range BPs in office with sdx of severe preeclampsia.labs pending.plan cytotec to pitocin induction.antic . at 1526 RPT #:[id number] OF REPORT HPHistory and physical cnzzunzkizj9390-68-71X16:21:00F.[id number] AVAvailable for patient ultzKDUGEVEMAAPTWU5935-37-14P12:27:14 [facility] 2020-10-15 18:59:00 [id number] DuuS4Jw1SAjOgn7jRAr3Q5fTb73+s DPAJEyEQkmm7If6Ishe3q/KEC0MlFAp+Q25086-09-27L32:5 [id number] [facility] [place] [id number] PATIENT NAME: ARA OROURKE ADMIT DATE: 10/12/20ACCOUNT NO: [id number] ROOM NO: AGE: 30 SEX: F ADMITTING PHYSICIAN: ATTENDING PHYSICIAN: Marques Hughes MD ADMISSION DATE: 10/12/2020 TRIAGE EVALUATION The patient is for evaluation in OB ED on 10/12/2020 by Debby Vera MD, triagehospitalist, seen per request of Dr. Kaur business relations manager for Dr. Hughes. HISTORY OF PRESENT ILLNESS: The patient is a 29-year-old G3, P2-0-0-2 withunsure last menstrual period, and estimated date of confinement 01/18/2021. Shepresented at 26-0/7th weeks complaining of sharp pain that lasted 5 to 10seconds, a single episode. The pain was 6/10 initially, but at the time ofevaluation 2/10. She denied recent intercourse. She had been active with herolder kids earlier in the day, and she states she had been picking up heavy items including a 50-pound fish tank recently. She also stated that she had a subchorionic hematoma in the first trimester, but this had resolved; however, just prior to presentation, she noted some brown mucus on her liner and then beige discharge on the toilet paper. The patient denied leakage of fluid and reported good movement. She denied contractions. She denied headache, vision changes, or other preeclampsia symptoms. She did have 3 episodes of vomiting earlier in the day after a greasy meal. She denies ill contacts. She had recently driven to [place] and the drive was 9 hours with minimal stopping. Otherwise, no fever, chills, diarrhea, constipation, or dysuria. She denied cough, sore throat, shortness of breath, loss of taste and smell. She does have severe allergy symptoms, but has not been diagnosed with COVID. Her last negative test was approximately 1 year prior. She denied having her COVID vaccinations. Her care has been with Dr. Hughes since approximately 6 to 8 weeks' gestation. Her next visit is scheduled for October. As stated above, the was notable for first trimester subchorionic hematoma, which has had resolved and she had not had any bleeding since 12 to 13 weeks' gestation until 3 or 4 weeks ago when she had an episode of postcoital bleeding. She states she has blood type A positive. PAST MEDICAL HISTORY: Negative. PAST SURGICAL HISTORY: Laparoscopic appendectomy in 2005, and umbilical hernia repair x3, last in 2016. ALLERGIES: NO KNOWN DRUG ALLERGIES. MEDICATIONS: vitamins. OBSTETRICAL HISTORY: In 2010, full-term vaginal delivery of a female weighing 7 pounds 15 ounces. In 2013, full-term vaginal delivery of a male PATIENT NAME: ARA OROURKE weighing 7 pounds 6 ounces. No complications in either of those pregnancies. GYNECOLOGIC HISTORY: Menarche at age 16 with regular monthly cycles lasting 7days, moderate in amount with moderate cramping. The patient denies priorhistory of STDs and reports all Pap smears normal. SOCIAL HISTORY: The patient denies tobacco or illicit drug use. She reportsrare prepregnancy alcohol use. She lives with her spouse and 2 children. Herspouse is a 36-year-old healthy male. He travels for work and is currently outof town working in [place]. The patient does not work outside the home orattend school. FAMILY HISTORY: Mother without health problems. Father of [place] at age 32.Maternal grandmother with COPD, she was a smoker. Maternal grandfather deceasedfrom [place], he also had heart disease and hypertension. Paternal grandmotherwithout health problems. Paternal grandfather with hypertension. Sister withCrohn's. Her 2 children are reported as healthy. She denies history of mentalretardation or defects in her family or her partner's family. REVIEW OF SYSTEMS: A 10-point review of systems is negative except as statedabove. PHYSICAL EXAMINATION:GENERAL: The patient is a well-nourished and well-developed female, in no acutedistress, lying on triage stretcher in OB ED.VITAL SIGNS: Height 5 feet 9 inches, weight prior to the 155 poundsand at most recent visit 206. Blood pressure 117/67, pulse 78, respirations 18,and temperature 98.6.HEAD AND NECK: Within normal limits without lymphadenopathy or thyromegaly.CHEST: Clear to auscultation bilaterally.HEART: With regular rate and rhythm.BREASTS: Deferred.ABDOMEN: Soft, nontender, gravid with a fundal height of 27 cm.PELVIS: On sterile speculum exam, no blood was noted in the vault. She didhave normal appearing leukorrhea. On sterile vaginal exam; cervix is long,closed, and posterior.EXTREMITIES: Without edema. Bilateral patellar reflexes, 2+.NEUROLOGIC: Nonfocal. The patient is awake, alert, and oriented x3. NST is category 1 for gestational age with baseline heart tones in hqs700f to 140s range, multiple 15 x 15 accelerations, no decelerations, and nocontractions still. LABORATORY DATA: Urinalysis showed 1+ blood, 2+ leukocytes, 3 to 5 RBCs, 3 to 5WBCs, moderate epithelial cells, and rare bacteria. Urine culture was sent, butwill not be available for approximately 48 hours. ASSESSMENT AND PLAN: This is a 29-year-old G3, P2-0-0-2, at 26-0/7th weeks, whohas a history of subchorionic hematoma in the first trimester, but the symptomshad resolved. She now presents complaining of recurrence of vaginal bleeding;however, workup is consistent with hematuria and possible urinary tractinfection. She is discharged home in stable condition with reassuring status. She is to drink greater than 100 ounces of water daily, eat frequent PATIENT NAME: ARA OROURKE small meals. She is to follow up with Dr. Hughes as scheduled on October.She is to call his office on October to request results of the urineculture. No antibiotics given at this time. Dictated By: Debby Vera MD WT: HP:FPUNEET/RONNIE/NTSDD: 10/15/2020 18:59:45DT: 10/15/2020 19:38:29Conf#: [id number]/DID#: [id number] and Edited by Debby Vera MD On 10/28/20 4:19:52 PM at 1622 PATIENT NAME: ARA OROURKE and physical mrrrtgyodhq2027-57-52Z80:38:00F.[id number] VAvailable for patient psnrQQMHCERETHWIBR5756-86-72T32:22:35 [facility] 2020-06-03 04:19:00 [id number] ykgHqcEeqyHj4gRbiKk/cgZv9uv/z 1BhrD8TGwLlg2OZmYCa8nCGctvnMnN0+218912-86-76A37:1 9:00 [facility] ([facility])EMERGENCY PROVIDER REPORTREPORT#:[id number] REPORT STATUS: SignedDATE:06/03/20 TIME: 041 PATIENT: ARA OROURKE UNIT #: [id number]#: [id number] ROOM/BED:AGE: 29 SEX: F PCP PHYS: DOES_NOT KNOWSERVICE AUTHOR: Guanako Escobedo MD * ALL edits or amendments must be made on the electronic/computer document * HPI-Preg Under 20 Weeks GeneralInitial Greet Date/Time 06/03/20227 PresentationChief Complaint Vaginal bleedingContext: Known 1st trim pregnancyHx Obtained From PatientOnset Occurred Weeks agoProgression since Onset Waxes and wanesSeverity: Onset MildSeverity: Current none Free Text HPI NotesFree Text HPI NotesThis is a 29-year-old at unknown gestational age with vaginal bleeding andpregnancy. 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 Patient also reports recurrent Bartholin's gland abscess to the right labia. No nausea, vomiting, fever, chest pain, trouble breathing, no other complaints Review of Systems ROS StatementsComplete sys rev neg except as marked. Basic Review of SystemsBasic ROS ENT: No sore throat, PSYCH: NL thought content Focused Review of SystemsConstitutionalDenies: Chills, Fatigue, Fever, Lethargy, Malaise, Recent wt loss, Weakness - generalized. FemaleReports: , Vaginal bleeding - abnl. Past Medical History - AdultStated Complaint GI PAIN, HEVAY BLEEDING,TRANFER PATIENTAllergiesCoded Allergies:No Known Allergies (06/03/20) Calculated suicide risk level: No riskSmoking status for patients 13 years old or older: Never Smoker Physical Exam Vital SignsVital SignsFirst Documented: Result Date Time Pulse Ox 100 06/03 230 B/P 120/86 06/03 230 B/P Mean 97 06/03 230 O2 Delivery Room air 06/03 230 Temp 36.5 06/03 230 Pulse 86 06/03 230 Resp 16 06/03 230 Last Documented: Result Date Time Pulse Ox 100 06/03 427 B/P 111/64 06/03 427 B/P Mean 79 06/03 427 O2 Delivery Room air 06/03 427 Temp 36.6 06/03 427 Pulse 86 06/03 427 Resp 17 06/03 427 Review of Vital Signs Reviewed Focused PEGenitourinary General Design Leader present Female Genitourinary No bleeding Text/Dict NotesRight-sided Bartholin's glands abscess, no associated cellulitis, no crepitus Free Text PE NotesFree Text PE NotesGEN: In distress secondary to painHEAD: Atraumatic/NCEYES: PERRL, conj clearENT: Membranes moist, airway patentNECK: Supple, no stridor RESP: No resp distress, normal RRCV: Warm, well perfused ABD: Soft/non-tender, no rebound/guardingEXT: FROM, legs symmetricSKIN: No rashes, warm/dry NEURO: Alert oriented, gross movement NLPSYCH: Tearful secondary to pain Interpretation Diagnostics Lab Results InterpretationResultsLaboratory Tests 06/03/20 0240:[Embedded Image Not Available]Laboratory Tests: 06/034 0240 Chemistry Sodium (135 - 145 mEq/L) 134 L Potassium (3.5 - 5.0 mEq/L) 3.5 Chloride (100 - 115 mEq/L) 106 Carbon Dioxide (22 - 31 mEq/L) 20 L Anion Gap (10 - 20) 11.50 BUN (7 - 18 mg/dL) 10 Creatinine (0.5 - 1.0 mg/dL) 0.7 Glomerular Filtr Rate (>60 ml/min) 99 Glucose (65 - 110 mg/dL) 100 Calcium (8.4 - 10.2 mg/dL) 7.9 L Hematology WBC (6.6 - 12.1 K/mm3) 14.6 H RBC (3.45 - 5.01 M/mm3) 3.62 Hgb (10.7 - 13.9 g/dL) 11.4 Hct (32.1 - 42.1 %) 33.9 MCV (84.1 - 94.8 fL) 94 MCH (27 - 35 pg) 31.5 MCHC (32.2 - 34.1 gm/dL) 33.6 RDW (12.4 - 16.5 %) 12.1 L Plt Count (133 - 385 K/mm3) 266 MPV (9.1 - 12.7 fl) 10.2 Neut % (Auto) (56.5 - 79.4 %) 76.2 Lymph % (Auto) (14.3 - 34.3 %) 15.9 Hardin % (Auto) (5.1 - 10.4 %) 5.6 Eos % (Auto) (0.1 - 3.0 %) 1.5 Baso % (Auto) (0.1 - 1.0 %) 0.3 Neut # (Auto) (K/mm3) 11.1 Lymph # (Auto) (K/mm3) 2.3 Hardin # (Auto) (K/mm3) 0.8 Eos # (Auto) (K/mm3) 0.22 Baso # (Auto) (K/mm3) 0.0 Miscellaneous Maternal Serum HCG 59720 Urines Urine Color (YELLOW) YELLOW Urine Appearance (CLEAR) Slightly-Cloudy Urine pH (5 - 9) 5.0 Ur Specific [place] (1.001 - 1.035) 1.018 Urine Protein (NEG) NEGATIVE Urine Glucose (UA) (NEG) NEGATIVE Urine Ketones (NEG) NEGATIVE Urine Blood (NEG) NEG Urine Nitrite (NEG) NEG Urine Bilirubin (NEG) NEGATIVE Urine Urobilinogen (NEG mg/dL) NEGATIVE Ur Leukocyte Esterase (NEG) 3+ H Urine RBC (NONE SEEN #/hpf) 3-5 H Urine WBC (NONE SEEN #/hpf) 6-10 H Ur Epithelial Cells (RARE - FEW #/HPF) FEW Urine Bacteria (RARE - FEW /HPF) RARE Urine Mucus (NONE SEEN) RARE Microbiology: Date/Time Procedure - Status Source Growth 06/03 341 Urine Culture - RECD URINE Recent Impressions:ULTRASOUND - DUP AB/PEL/SC/LTD 06/03 240 Report Impression - Status: SIGNED Entered: 06/03/2020340 IMPRESSION:1. Single viable early intrauterine gestation. heart rate is160 bpm.2. Subchorionic bleed. SL: MONTEZ-H Impression By: [id number] Ashlee Carpio M.D.ULTRASOUND - US PREG EVAL 1ST TRIMTR 06/03 240 Report Impression - Status: SIGNED Entered: 06/03/2020 0341 IMPRESSION:1. Single viable early intrauterine gestation. heart rate is160 bpm.2. Subchorionic bleed. SL: MONTEZ-Berenice Impression By: TachoJSEliud Carpio M.D. Procedures Free Text Proc NotesFree Text Proc NotesProcedure: Incision and drainageProcedure performed by: Guanako Escobedo MDIndication for procedure: Bartholin's gland abscess Area was cleansed with ChloraPrep. 3 cc of 1% lidocaine with epinephrine were injected into the areas of greatest fluctuance. #11 blade was used to incise the abscess. Purulent drainage drained from incision site. The area was flushed with 20 cc of normal saline. The patient tolerated the procedure well without complication. Re-Evaluation MDM ED CourseMedication(s) OrderedMedication(s) Ordered:Anti-Infective Agents Sig/Cristo Start time Last Medication Dose Route Stop Time Status Admin Nitrofurantoin 100 MG X1ED STA 06/03 0410 DC 06/03 Macrocrystals PO 06/03 0411 0425 Central Nervous System Agents Sig/Cristo Start time Last Medication Dose Route Stop Time Status Admin Morphine Sulfate 4 MG X1ED STA 06/03 0336 DC 06/03 IV 06/03 0337 0338 Fentanyl Citrate 50 MCG X1ED STA 06/03 0306 DC 06/03 IV 06/03 0307 0312 Electrolytic, Caloric, And Carmen Sig/Cristo Start time Last Medication Dose Route Stop Time Status Admin Lactated Ringer's 125 ML X1ED STA 06/03 0307 DC 06/03 IV 06/03 0406 0311 Sodium Chloride 1,000 ML X1ED STA 06/03 0228 DC 06/03 IV 06/03 0327 0245 Gastrointestinal Drugs Sig/Cristo Start time Last Medication Dose Route Stop Time Status Admin Ondansetron HCl 4 MG X1ED STA 06/03 0306 DC 06/03 IV 06/03 0307 0312 Local Anesthetics (Parenteral) Sig/Cristo Start time Last Medication Dose Route Stop Time Status Admin Lidocaine/Epinephrine 3 ML X1ED STA 06/03 0330 DC 06/03 SUBQ 06/03 0331 0334 Free Text MDM NotesFree Text MDM NotesThreatened AB secondary to subchorionic hemorrhageViable IUP on ultrasoundPatient reported significant pain following I D of Bartholin's abscessMacrobid for UTIDiscussed with Dr. Miranda who recommends discharge and outpatient follow-up Patient Discharge Departure Vital Signs/ConditionVital SignsFirst Documented: Result Date Time Pulse Ox 100 06/030 B/P 120/86 06/03 230 B/P Mean 97 06/03 230 O2 Delivery Room air 06/03 230 Temp 36.5 06/03 230 Pulse 86 06/03 230 Resp 16 06/03 230 Last Documented: Result Date Time Pulse Ox 100 06/03 427 B/P 111/64 06/03 427 B/P Mean 79 06/03 427 O2 Delivery Room air 06/03 427 Temp 36.6 06/03 427 Pulse 86 06/03 427 Resp 17 06/03 427 All vital signs available at the time of this entry have been reviewed. Clinical ImpressionClinical ImpressionPrimary Impression: Subchorionic hematoma in first trimesterSecondary Impressions: Bartholin's cyst, UTI (urinary tract infection) Disposition DecisionDischarge )( Discharged to Home Yes )( Time 0423 )( Date 06/03/20 Discharge/Care PlanCounseled Regarding Diagnosis, Lab results, Imaging studies, Need for follow-up,When to return to ED(Auto) PrescriptionsCurrent Visit ScriptsNITROFURANTOIN/NITROFURAN MAC (MACROBID) 100 MG PO BID NITROFURANTOIN/NITROFURAN MAC (MACROBID) 100 MG PO BID #14 CAPS Until finished. Take with food. Patient Instructions Bleeding During Early , ED Bartholin's Cyst: Common TreatmentsAdditional Instructionsyou can return to our ER for any worseningRefMarques Blanco MDfollow up as scheduled at 0506RPT #:[id number] OF REPORTEDEmergency department ezjfxa3422-11-99S12:19:00F.[id number] ilable for patient xdtyFYTTGPIZHPKZBU7423-52-43E94:06:52 [facility]
--- NOTE | 2023-08-03 14:50 | RAD REPORT ---
EXAM DESCRIPTION: US - Extremity Nonvascular Limited - 08/03/2023 2:38 pm CLINICAL HISTORY: r/o abscess bilaterally COMPARISON: No comparisons FINDINGS: Focused ultrasound at the right and left antecubital fossa. No abscess identified. A super ficial vein is noted that may be thrombosed on the right side. IMPRESSION: No abscess identified at the area of interest at the antecubital fossa bilaterally. Supe rficial vein which is thrombosed in the right forearm at the area of interest
[2023-08-03 16:08] LABS: Absolute Lymphocytes (CBC) 2.1 K/uL (0.7-4.9); Hematocrit 44.4 % (36.0-45.0); Lymphocytes % 15.1 % (15.3-44.8); Platelets 439 thou/uL (152-406); RBC Red Blood Cell Count 4.93 M/uL (3.86-4.86)
[2023-08-03 16:17] LABS: Protime INR 1.08
[2023-08-03 16:24] LABS: Albumin 4.4 g/dL (3.4-5.0); Bilirubin Total 0.6 mg/dL (0.2-1.0); Potassium 3.6 mEq/L (3.5-5.1); Protein, Total 9.4 g/dL (6.4-8.2)
--- NOTE | 2023-08-03 16:24 | RAD REPORT ---
EXAM DESCRIPTION: RAD - Chest Single View - 08/03/2023 3:57 pm CLINICAL HISTORY: DYSPNEA COMPARISON: Chest Pa And Lat (2 Views) dated 10/25/2019; Chest Single View dated 10/25/2019; Chest Sin gle View dated 07/22/2017 FINDINGS: Lines: None. Lungs: No evidence of edema or pneumonia. Pleural: No significant pleural effusions or pneumothorax. Cardiac: The heart size is within normal limits. Mediastinum: Within normal limits. Bones: No acute fractures. Other: None IMPRESSION: No acute cardiopulmonary disease.
[2023-08-03 17:40] LABS: SARS-CoV-2 Antigen Rapid Res Negative (Negative)
--- NOTE | 2023-08-03 17:48 | ER ---
Nurse's Notes [facility] Name: Mary Beth Sanchez Age: 32 yrs Sex: Female : 1990 Arrival Date: 08/03/2023 Time: 13:42 Bed 7 Private MD: Diagnosis: Superficial thrombus left and right upper extremities;Nausea with vomiting, unspecified Presentation: 08/03 13:57 Chief complaint: Patient states: nausea, vomiting, chills, fever, cough, thinks both ko1 arms are infected from cocaine injections. Coronavirus screen: At this time, the client does not indicate any symptoms associated with coronavirus-19. Coronavirus screen: chills, fatigue, fever, muscle pain, nausea, vomiting. Client presents with at least one sign or symptom that may indicate coronavirus-19. Standard/surgical mask placed on the client. Ebola Screen: No symptoms or risks identified at this time. Initial Sepsis Screen: Does the patient meet any 2 criteria? No. Patient's initial sepsis screen is negative. Does the patient have a suspected source of infection? No. Patient's initial sepsis screen is negative. Risk Assessment: Do you want to hurt yourself or someone else? Patient reports no desire to harm self or others. Onset of symptoms is unknown. 13:57 Method Of Arrival: Ambulatory ko1 13:57 Acuity: AMOS 3 ko1 Triage Assessment: 14:01 General: Appears ill, Behavior is cooperative, appropriate for age. Pain: Complains of ko1 pain in arms, generalized pain. Historical: - Allergies: 14:01 Latex; ko1 - PMHx: 14:01 back problems; Hypertensive disorder; Seizures; ko1 16:40 Drug Abuse (Cocaine); aa5 - PSHx: 14:01 Appendectomy; ko1 - Immunization history:: Adult Immunizations unknown. - Social history:: Smoking status: Reported history of juuling and/or vaping. Screenin:35 [facility] ED Fall Risk Assessment (Adult) History of falling in the last 3 months, aa5 including since admission No falls in past 3 months (0 pts) Confusion or Disorientation No (0 pts) Intoxicated or Sedated No (0 pts) Impaired Gait No (0 pts) Mobility Assist Device Used No (0 pt) Altered Elimination No (0 pt) Score/Fall Risk Level 0 - 2 = Low Risk Oriented to surroundings, Maintained a safe environment, Educated pt \\T\\ family on fall prevention, incl call for assistance when getting out of bed. Abuse screen: Denies threats or abuse. Nutritional screening: No deficits noted. Tuberculosis screening: No symptoms or risk factors identified. Assessment: 15:35 General: Appears uncomfortable, Behavior is cooperative, anxious. Pain: Complains of aa5 pain in right arm and left arm Quality of pain is described as "sore". Pt states "I relapsed again". Pt reports injecting cocaine approximately 1 week ago. Neuro: Level of Consciousness is awake, alert, obeys commands, Oriented to person, place, time, situation. Cardiovascular: Heart tones S1 S2 present Rhythm is regular. Respiratory: Airway is patent Respiratory effort is even, unlabored, Respiratory pattern is regular, symmetrical. GI: Abdomen is non-distended, Bowel sounds present X 4 quads. Abd is soft and non tender X 4 quads. Reports nausea, vomiting. : No signs and/or symptoms were reported regarding the genitourinary system. EENT: No signs and/or symptoms were reported regarding the EENT system. Derm: Skin is pink, warm \\T\\ dry. Musculoskeletal: Range of motion: intact in all extremities, swollen hard areas noted to blanche FA, blanche AC areas with scabs noted, pt reported she injected cocaine 1 week ago. 16:12 Reassessment: Patient is alert, oriented x 3, equal unlabored respirations, skin aa5 warm/dry/pink. IMPROVEMENT ADVISOR notified of inability to obtain 2nd set of blood cultures, pt states "I don't want to be stuck again" (referring to blood draw or IV insertion).. 16:12 General: Appears comfortable, Behavior is calm. aa5 18:29 Reassessment: Patient appears in no apparent distress at this time. Patient and/or iw family updated on plan of care and expected duration. Pain level reassessed. Patient is alert, oriented x 3, equal unlabored respirations, skin warm/dry/pink. Vital Signs: 13:57 BP 137 / 100; Pulse 86; Resp 22; Temp 99.8; Pulse Ox 100% ; ko1 16:30 BP 128 / 98; Pulse 82; Resp 16 S; Pulse Ox 100% on R/A; aa5 ED Course: 13:57 Patient arrived in ED. im 13:59 Kylee Pickard FNP-C is PHCP. kb 13:59 Austin Diehl MD is Attending Physician. kb 14:01 Triage completed. ko1 14:01 Arm band placed on right wrist. Patient placed in waiting room, Patient notified of ko1 wait time. 14:39 US Extrmty Nonvasular Limited In Process Unspecified. EDMS 15:17 Lacie Hennessy, RN is Primary Nurse. aa5 15:45 Inserted saline lock: 22 gauge in right forearm, using aseptic technique. Pt did not aa5 tolerate IV insertion well, pt hyperventilated, became sweaty and pale, pt verbally reassured by me and family at bedside. 15:50 Missed attempt(s): 22 gauge in left wrist. Bleeding controlled, band aid applied, aa5 catheter tip intact. 15:53 Initial lab(s) drawn, by me, sent to lab. aa5 15:53 First set of blood cultures drawn by me. aa5 15:59 Chest Single View XRAY In Process Unspecified. EDMS 16:19 IV discontinued, intact, bleeding controlled, No redness/swelling at site. Pressure aa5 dressing applied. 16:38 No provider procedures requiring assistance completed. aa5 18:29 Patient has correct armband on for positive identification. Provided Education on: . iw Administered Medications: 16:10 Drug: NS 0.9% IV 1000 ml IV at 1000 ml once Route: IV; Rate: 1000 ml; Site: right aa5 forearm; 16:19 Follow up: Pt c/o pain to IV site with fluids infusing, no redness, no swelling noted aa5 to site, pt states "both of my arms are really sore and sensitive and I don't want the fluids anymore". IV infusion stopped. IMPROVEMENT ADVISOR was notified and IV was removed. 16:10 Drug: Ondansetron IVP 4 mg IVP once; over 2 minutes Route: IVP; Site: right forearm; aa5 16:14 Follow up: Response: No adverse reaction aa5 Medication: 18:29 VIS not applicable for this client. iw Intake: Outcome: 17:47 Discharge ordered by . kb 18:29 Discharged to home ambulatory, with family, iw 18:29 Condition: good 18:29 Discharge instructions given to patient, family, Instructed on discharge instructions, follow up and referral plans. medication usage, Demonstrated understanding of instructions, follow-up care, medications, Prescriptions given X 2, 18:30 Patient left the ED. iw Signatures: Dispatcher [employer] EDMS Kylee Pickard, MARINE BIOLOGIST-C MARINE BIOLOGIST-Adriana Gee, RN ACE Lacie Hennessy RN RN aa5 Carole Murdock RN RN ko1 Angelika Ibanez Corrections: (The following items were deleted from the chart) 14:02 14:01 Allergies: Latex; ko1 ko1 14:02 14:01 Home Meds: hydrochlorothiazide 12.5 mg Oral cap 1 cap once daily; ko1 ko1 16:11 15:45 Inserted saline lock: 22 gauge in right forearm, using aseptic technique. aa5 aa5 16:39 15:30 Abuse screen: Denies threats or abuse. aa5 aa5 16:39 15:30 Nutritional screening: No deficits noted. aa5 aa5 16:39 15:30 Tuberculosis screening: No symptoms or risk factors identified. aa5 aa5 16:39 15:30 [facility] ED Fall Risk Assessment (Adult) History of falling in the last 3 months, aa5 including since admission No falls in past 3 months (0 pts) Confusion or Disorientation No (0 pts) Intoxicated or Sedated No (0 pts) Impaired Gait No (0 pts) Mobility Assist Device Used No (0 pt) Altered Elimination No (0 pt) Score/Fall Risk Level 0 - 2 = Low Risk Oriented to surroundings, Maintained a safe environment, Educated pt \\T\\ family on fall prevention, incl call for assistance when getting out of bed, aa5
--- NOTE | 2023-08-03 17:48 | EDPHYS ---
Physician Documentation [facility] Name: Mary Beth Sanchez Age: 32 yrs Sex: Female : 1990 Arrival Date: 08/03/2023 Time: 13:42 Bed 7 Private MD: ED Physician Austin Diehl HPI: 08/03 17:45 This 32 yrs old Female presents to ER via Ambulatory with complaints of Nausea, kb Breathing Difficulty. 17:45 Patient is a 32-year-old female who presents for nausea, vomiting, chills, fever, kb cough. States chills, fever and cough started about a week ago with nausea and vomiting started yesterday. Also reports she relapsed and injected both ACs with cocaine 2 weeks ago and she believes she has an infection where she injected.. Historical: - Allergies: 14:01 Latex; ko1 - PMHx: 14:01 back problems; Hypertensive disorder; Seizures; ko1 16:40 Drug Abuse (Cocaine); aa5 - PSHx: 14:01 Appendectomy; ko1 - Immunization history:: Adult Immunizations unknown. - Social history:: Smoking status: Reported history of juuling and/or vaping. ROS: 17:45 Cardiovascular: Negative for chest pain, palpitations, and edema, kb 17:45 Constitutional: Positive for body aches, chills, fatigue, fever, malaise, 17:45 Respiratory: Positive for cough, 17:45 Abdomen/GI: Positive for nausea and vomiting, 17:45 Skin: Positive for erythema, of the right antecubital area and left antecubital area, 17:45 All other systems are negative, Exam: 17:35 Constitutional: This is a well developed, well nourished patient who is awake, alert, kb and in no acute distress. Head/Face: Normocephalic, atraumatic. ENT: Moist Mucous membranes Cardiovascular: Regular rate Respiratory: Respirations even and unlabored. No increased work of breathing. Talking in full sentences Abdomen/GI: Soft, non-tender. No distention MS/ Extremity: Pulses equal, no cyanosis. Neurovascular intact. Full, normal range of motion. Neuro: Awake and alert, GCS 15, oriented to person, place, time, and situation. Moves all extremities. Normal gait. 17:35 Skin: Firm veins in bilateral ACs with slight redness. No abscess palpated. 17:37 ECG was reviewed by the Attending Physician. kb Vital Signs: 13:57 BP 137 / 100; Pulse 86; Resp 22; Temp 99.8; Pulse Ox 100% ; ko1 16:30 BP 128 / 98; Pulse 82; Resp 16 S; Pulse Ox 100% on R/A; aa5 MDM: 13:59 Patient medically screened. kb 17:46 Differential diagnosis: COVID, flu, URI, abscess, cellulitis, thrombophlebitis. Data kb reviewed: vital signs, nurses notes. Counseling: I had a detailed discussion with the patient and/or guardian regarding the historical points, exam findings, and any diagnostic results supporting the discharge/admit diagnosis, lab results, radiology results, the need for outpatient follow up, a family practitioner, to return to the emergency department if symptoms worsen or persist or if there are any questions or concerns that arise at home. 08/03 14:07 Order name: Blood Culture Adult (2) kb 08/03 14:07 Order name: CBC with Diff; Complete Time: 16:16 kb 08/03 14:07 Order name: CMP; Complete Time: 16:26 kb 08/03 14:07 Order name: Lactate w/ 2H reflex if indic.; Complete Time: 16:26 kb 08/03 14:07 Order name: Protime (+inr); Complete Time: 16:19 kb 08/03 14:07 Order name: Ptt, Activated; Complete Time: 16:19 kb 08/03 14:07 Order name: Flu; Complete Time: 17:19 kb 08/03 14:07 Order name: SARS-COV-2 Antigen Rapid; Complete Time: 17:40 kb 08/03 14:07 Order name: Chest Single View XRAY; Complete Time: 16:26 kb 08/03 14:07 Order name: US Extrmty Nonvasular Limited; Complete Time: 14:54 kb 08/03 14:07 Order name: EKG; Complete Time: 14:08 kb 08/03 14:07 Order name: Cardiac monitoring; Complete Time: 16:00 kb 08/03 14:07 Order name: EKG - Nurse/Tech; Complete Time: 16:00 kb 08/03 14:07 Order name: IV Saline Lock - Large Bore; Complete Time: 16:00 kb 02/18 14:07 Order name: Labs collected and sent; Complete Time: 16:00 kb 08/03 14:07 Order name: O2 Per Protocol; Complete Time: 16:00 kb 08/03 14:07 Order name: O2 Sat Monitoring; Complete Time: 16:00 kb 08/03 14:07 Order name: Vital Signs; Complete Time: 16:00 kb EC:37 Rate is 62 beats/min. Rhythm is regular. QRS [place] is Normal. [place] interval is normal at kb 134 msec. QRS interval is normal at 102 msec. QT interval is normal at 440 msec. Administered Medications: 16:10 Drug: NS 0.9% IV 1000 ml IV at 1000 ml once Route: IV; Rate: 1000 ml; Site: right aa5 forearm; 16:19 Follow up: Pt c/o pain to IV site with fluids infusing, no redness, no swelling noted aa5 to site, pt states "both of my arms are really sore and sensitive and I don't want the fluids anymore". IV infusion stopped. COMMUNITY DIRECTOR was notified and IV was removed. 16:10 Drug: Ondansetron IVP 4 mg IVP once; over 2 minutes Route: IVP; Site: right forearm; aa5 16:14 Follow up: Response: No adverse reaction aa5 Disposition: 18:33 Co-signature as Attending Physician, Austin Diehl MD I reviewed the patient's care rt provided by the Advanced Practice Provider and agree with the diagnosis and treatment plan. Disposition Summary: 08/03/23 17:47 Discharge Ordered Notes: Location: Home kb Condition: Stable kb Diagnosis - Superficial thrombus left and right upper extremities kb - Nausea with vomiting, unspecified kb Followup: kb - With: Emergency Department - When: As needed - Reason: Worsening of condition Followup: kb - With: Private Physician - When: 2 - 3 days - Reason: Recheck today's complaints, Continuance of care, Re-evaluation by your physician Discharge Instructions: - Discharge Summary Sheet kb - Nausea and Vomiting, Adult, [id number] kb - Thrombophlebitis kb Forms: - Medication Reconciliation Form kb - Thank You Letter kb - Antibiotic Education kb - Prescription Opioid Use kb - Patient Portal Instructions kb - Leadership Thank You Letter kb Prescriptions: - Zofran 4 mg Oral tablet - take 1 tablet ORAL route every 6 hours As needed; 12 tablet; Refills: 0, kb Product Selection Permitted - Doxycycline Hyclate 100 mg Oral Tablet - take 1 tablet ORAL route every 12 hours; 20 tablet; Refills: 0, Product kb Selection Permitted Signatures: Dispatcher [employer] Kylee Denniosn FNP-C FNP-Ckb Calderon, Audri RN RN aa5 Carole Murdock RN RN ko1 Austin Diehl MD MD rt Corrections: (The following items were deleted from the chart) 14:02 14:01 Allergies: Latex; ko1 ko1 14: 14:01 Home Meds: hydrochlorothiazide 12.5 mg Oral cap 1 cap once daily; ko1 ko1
[2023-08-03 18:47] VITALS: BP 137/100; TEMP 99.8; O2SAT 100
--- NOTE | 2023-08-04 10:56 | EKG ---
Test Date: 2023-08-03 Test Time: 16:05:40 Buffer Machine: FERN MEASUREMENT RESULTS: Intervals: Rate: 62 WV: 134 QRSD: 102 QT: 434 QTc: 440 [place]: P: 27 WV: 134 QRS: 69 T: 29 INTERPRETIVE STATEMENTS: Normal sinus rhythm with sinus arrhythmia Normal ECG Compared to ECG 10/25/2019 20:04:31 No significant changes Electronically Signed On 08-04-23 10:55:02 SENIOR SALES REPRESENTATIVE by Eduard Camargo
== END ==
LOC: ER 13:42
DX: R11.2 Nausea with vomiting, unspecified (principal); I82.613 Acute embolism and thrombosis of superficial veins of upper extremity, bilateral
CPT/HCPCS: 36415; 71045; 76882; 80053; 83605; 85025; 85610; 85730; 87040; 87804; 87811; 93005; J2405; J7030